=== PATIENT | female | born 1955 | race Caucasian/White ===

== ENCOUNTER → 2016-09-24 | Outpatient (CLI) | payer BC ==
[~2016-09-24] MED LIST: HYDR12.55 PO; LISI5TAB PO; POLY335040 PO
--- NOTE | 2016-09-24 11:26 | DIAGNOSTIC IMAGING REPORT ---
LEFT FOOT MIN 3 VIEWS CLINICAL HISTORY: LEFT FOOT PAIN COMPARISON: None. DISCUSSION: There is a mild hallux valgus deformity. No acute fractures are visualized. There is a tiny plantar calcaneal spur. There are no erosive or destructive changes. IMPRESSION: No acute fractures. No evidence of erosive disease. Electronically signed by: Chris Reed M.D. 09/24/2016 11:25 AM Dictated Date/Time: 09/24/2016 11:24 AM
== END | disposition home or self-care (01) ==
LOC: C.RDSM 09:30
PROVIDERS: ATTEND Family Medicine
DX: M17.11 Unilateral primary osteoarthritis, right knee (principal); M79.672 Pain in left foot

== ENCOUNTER → 2016-11-26 | Outpatient (CLI) | payer BC ==
[2016-11-26 18:04] LABS: BLOOD UREA NITROGEN 21 mg/dl (7-18); BUN/CREATININE RATIO 21.6 (10-20); CALCIUM 9.2 mg/dl (8.5-10.1); CARBON DIOXIDE 30 mmol/L (21-32); CHLORIDE 104 mmol/L (98-107); CREATININE 0.98 mg/dl (0.60-1.20); GLUCOSE 93 mg/dl (70-99); POTASSIUM 3.9 mmol/L (3.5-5.1); SODIUM 142 mmol/L (136-145)
[2016-11-27 06:16] LABS: ESTIMATED AVERAGE GLUCOSE 137 mg/dl; HA1C FLAG Normal (Normal)
== END | disposition home or self-care (01) ==
LOC: C.LABPVFM 11:55
PROVIDERS: ATTEND Family Medicine
DX: I10 Essential (primary) hypertension (principal); R73.01 Impaired fasting glucose; Z11.59 Encounter for screening for other viral diseases

== ENCOUNTER → 2017-04-08 | Outpatient (CLI) | payer BC ==
--- NOTE | 2017-04-08 09:39 | DIAGNOSTIC IMAGING REPORT ---
RIGHT KNEE INCLUDING BILATERAL STANDING AP VIEWS (4 VIEWS) CLINICAL HISTORY: Right knee pain COMPARISON: 04/14/2016 DISCUSSION: There are moderately advanced osteoarthritic changes within the right knee with marked medial joint compartment narrowing. There are dorsal patellar spurs. There are lateral joint compartment loose bodies. There is also moderate narrowing of the medial joint compartment of the left knee. IMPRESSION: Persistent moderately advanced osteoarthritic changes the knees. No acute fractures. Electronically signed by: Chris Reed M.D. 04/08/2017 9:38 AM Dictated Date/Time: 04/08/2017 9:36 AM
== END | disposition home or self-care (01) ==
LOC: C.RDSM 11:25
PROVIDERS: ATTEND Family Medicine
DX: M25.561 Pain in right knee (principal)

== ENCOUNTER → 2017-05-12 | Outpatient (CLI) | payer BC ==
[2017-05-12 12:54] LABS: URINE APPEARANCE TURBID (CLEAR); URINE BILIRUBIN NEG (NEG); URINE COLOR YELLOW; URINE NITRITE POS (NEG); URINE SPECIFIC GRAVITY 1.018 (1.000-1.030); UROBILINOGEN NEG (NEG)
[2017-05-12 13:00] LABS: MANUAL MICROSCOPIC REQUIRED? NO
[2017-05-12 13:02] LABS: REVIEW REQ? NO; SULFASALICYLIC ACID NEG (NEG)
[2017-05-12 13:03] LABS: ESTIMATED AVERAGE GLUCOSE 137 mg/dl; HA1C FLAG Normal (Normal)
[2017-05-12 13:05] LABS: BLOOD UREA NITROGEN 17 mg/dl (7-18); BUN/CREATININE RATIO 17.5 (10-20); CALCIUM 9.5 mg/dl (8.5-10.1); CARBON DIOXIDE 28 mmol/L (21-32); CHLORIDE 107 mmol/L (98-107); CREATININE 0.97 mg/dl (0.60-1.20); GLUCOSE 85 mg/dl (70-99); POTASSIUM 3.8 mmol/L (3.5-5.1); SODIUM 141 mmol/L (136-145)
== END | disposition home or self-care (01) ==
LOC: C.LABPVFM 10:45
PROVIDERS: ATTEND Family Medicine
DX: I10 Essential (primary) hypertension (principal); R73.01 Impaired fasting glucose; N39.0 Urinary tract infection, site not specified; R82.99 Other abnormal findings in urine

== ENCOUNTER → 2017-05-17 | Outpatient (CLI) | payer BC ==
--- NOTE | 2017-05-18 07:54 | MAMMOGRAPHY REPORT ---
BILATERAL DIGITAL SCREENING MAMMOGRAM TOMOSYNTHESIS WITH CAD: 05/17/2017 CLINICAL HISTORY: Routine screening. Patient has no complaints. TECHNIQUE: Breast tomosynthesis in addition to standard 2D mammography was performed. Current study was also evaluated with a Computer Aided Detection (CAD) system. COMPARISON: Comparison is made to exams dated: 05/15/2016 mammogram, 05/13/2015 mammogram, 05/11/2014 m ammogram, 04/27/2013 mammogram, 04/21/2012 mammogram, and 04/07/2011 mammogram - [facility] nter. BREAST COMPOSITION: The tissue of both breasts is almost entirely fatty. FINDINGS: There is stable nodularity in the upper outer quadrant of the left breast, and a few benig n coarse calcifications bilaterally. No suspicious mass, architectural distortion or cluster of micr ocalcifications is seen. IMPRESSION: ACR BI-RADS CATEGORY 1: NEGATIVE There is no mammographic evidence of malignancy. A 1 year screening mammogram is recommended. The pa tient will receive written notification of the results. Approximately 10% of breast cancers are not detected with mammography. A negative mammographic report should not delay biopsy if a clinically suggestive mass is present. Tanya Krishnan M.D. ay/:05/17/2017 16:48:09 Pigskin Trimmer: Halle MARRERO)(Brad[place]), [facility] letter sent: Normal 1/2 BI-RADS Code: ACR BI-RADS Category 1: Negative
== END | disposition home or self-care (01) ==
LOC: C.MAMM 14:20
PROVIDERS: ATTEND Family Medicine
DX: Z12.31 Encounter for screening mammogram for malignant neoplasm of breast (principal)

== ENCOUNTER → 2017-07-30 | Outpatient (CLI) | payer BC | END | disposition home or self-care (01) | LOC: C.PAPS 16:22 | PROVIDERS: ATTEND Obstetrics & Gynecology | DX: Z01.419 Encounter for gynecological examination (general) (routine) without abnormal findings (principal) ==

== ENCOUNTER → 2017-08-20 | Outpatient (CLI) | payer BC, OTHER ==
[~2017-08-20] MED LIST changes: +CHOL1000 PO; +GLC/500 PO; +PRLSR20 PO; +RANI150T3 PO
== END | disposition home or self-care (01) ==
LOC: C.LABPVFM 10:13
PROVIDERS: ATTEND Nurse Practitioner
DX: N39.0 Urinary tract infection, site not specified (principal)

== ENCOUNTER → 2017-10-15 | Outpatient (CLI) | payer OTHER ==
[~2017-10-15] MED LIST changes: -CHOL1000 PO; -GLC/500 PO; -PRLSR20 PO; -RANI150T3 PO
[2017-10-15 12:54] LABS: HEMOGLOBIN A1C 6.3 % (4.5-5.6)
[2017-10-15 12:56] LABS: ALBUMIN 3.7 gm/dl (3.4-5.0); ALT/SGPT 44 U/L (12-78); BLOOD UREA NITROGEN 18 mg/dl (7-18); CALCIUM 9.5 mg/dl (8.5-10.1); CARBON DIOXIDE 30 mmol/L (21-32); CHOLESTEROL 195 mg/dl (0-200); CREATININE 0.98 mg/dl (0.60-1.20); GLUCOSE 118 mg/dl (70-99); POTASSIUM 3.9 mmol/L (3.5-5.1); SODIUM 139 mmol/L (136-145)
[2017-10-15 12:59] LABS: ALKALINE PHOSPHATASE 86 U/L (45-117); AST/SGOT 23 U/L (15-37); LDL CHOLESTEROL CALCULATED 114 mg/dl; TOTAL PROTEIN 7.3 gm/dl (6.4-8.2)
== END | disposition home or self-care (01) ==
LOC: C.LABPVFM 08:17
PROVIDERS: ATTEND Nurse Practitioner
DX: I10 Essential (primary) hypertension (principal); R73.01 Impaired fasting glucose; R78.2 Finding of cocaine in blood

== ENCOUNTER → 2017-12-17 | Day surgery (SDC) | payer OTHER ==
[2017-11-11 08:12] VITALS: Ht 154.9 cm; Wt 102.3 kg
[~2017-12-17] VITALS: Ht 154.9 cm; Wt 102.3 kg
[~2017-12-17] MED LIST changes: +CHOL1000 PO; +GLC/500 PO; +LIDOCAINE HCL 2% 2 ML VIAL (20MG/ML) ONE; -POLY335040 PO; +PRLSR20 PO; +PROPOFOL IV EMULSION 10 MG/ML 20 ML VIAL IV ONE; +RANI150T3 PO
--- NOTE | 2017-12-17 14:44 | Endo History and Physical ---
History & Physical Date of Service: Dec 17, 2017. Chief Complaint: epigastric pain and nausea Referring Physician: Rona HUERTA History of Present Illness For EGD Past Surgical History Hx Cardiac Surgery: No Hx Internal Defibrillator: No Hx Pacemaker: No Hx Abdominal Surgery: Yes (VELASQUEZ, TUBAL LIGATION) Hx of Implantable Prosthesis: No Hx Post-Op Nausea and Vomiting: No Hx Cancer Surgery: No Hx Thoracic Surgery: No Hx Orthopedic: No Hx Urinary Tract Surgery: No Family History None Social History Smoking Status: Never Smoker Hx Substance Use: No Hx Alcohol Use: No Allergies Coded Allergies: No Known Allergies (Verified , 12/17/17) Current Medications Reported Home Medications Medications Dose Route/Sig Max Daily Dose Days Date Category Vitamin D3 (Cholecalciferol) 1,000 Unit Tab 1 Tab PO QAM 11/11/17 Reported Zantac (Ranitidine HCl) 150 Mg Tab 150 Mg PO QPM 11/11/17 Reported Prilosec (Omeprazole) 20 Mg Capcr 20 Mg PO QAM 11/11/17 Reported Glucophage (Metformin Hcl) 500 Mg Tab 500 Mg PO BID 11/11/17 Reported Prinivil (Lisinopril) 5 Mg Tab 5 Mg PO QAM 03/13/13 Reported Hydrochlorothiazide 12.5 Mg Tab 12.5 Mg PO QAM 03/13/13 Reported Vital Signs Weight (Kilograms): 102.27 Height (Feet): 5 Height (Inches): 1 Date Time Temp Pulse Resp B/P (MAP) Pulse Ox O2 Delivery O2 Flow Rate FiO2 12/17/17 14:19 36.8 86 18 142/91 (108) 98 Room Air Physical Exam General Appearance: + obese Respiratory/Chest: Respiratory effort: no dyspnea Cardiovascular: Heart Auscultation: RRR Abdomen: Inspection & Palpation: soft Assessment and Plan Epig pain for EGD
--- NOTE | 2017-12-17 14:59 | Discharge Instructions ---
Endoscopy Patient Instructions Date / Procedure(s) Performed Dec 17, 2017. EGD Allergy Information Coded Allergies: No Known Allergies (Verified , 12/17/17) Discharge Date / Findings Dec 17, 2017. Schatzki ring, hiatal hernia Medication Instructions Stopped Medication(s): last dose Metformin Wednesday Restart Stopped Medication(s): resume meds Reported Home Medications Medications Dose Route/Sig Max Daily Dose Days Date Category Vitamin D3 (Cholecalciferol) 1,000 Unit Tab 1 Tab PO QAM 11/11/17 Reported Zantac (Ranitidine HCl) 150 Mg Tab 150 Mg PO QPM 11/11/17 Reported Prilosec (Omeprazole) 20 Mg Capcr 20 Mg PO QAM 11/11/17 Reported Glucophage (Metformin Hcl) 500 Mg Tab 500 Mg PO BID 11/11/17 Reported Prinivil (Lisinopril) 5 Mg Tab 5 Mg PO QAM 03/13/13 Reported Hydrochlorothiazide 12.5 Mg Tab 12.5 Mg PO QAM 03/13/13 Reported Provider Instructions Activity Restrictions - No exercising or heavy lifting for 24 hours. - Do not drink alcohol the day of the procedure. - Do not drive a car or operate machinery until the day after the procedure. - Do not make any important decisions or sign important papers in 24 hours after the procedure. Following Day: - Return to full activity which may include returning to work/school. Diet Start your diet with liquids and light foods (jello, soup, juice, toast). Then eat your usual diet if not nauseated. Treatment For Common After Affects For mild abdominal pain, bloating, or excessive gas: - Rest - Eat lightly - Lie on right side Follow-Up Information Follow-up with Rona HUERTA as scheduled Anesthesia Information What You Should Know You have had a procedure that required some medicine to reduce anxiety and discomfort. This treatment is called moderate sedation. After receiving the treatment, you may be sleepy, but you will be able to breathe on your own. The effects of the treatment may last for several hours. Follow these instructions along with Activity/Diet recommendations noted above: * Do NOT do anything where dizziness or clumsiness would be dangerous. * Rest quietly at home today, then you can be up and about tomorrow. * Have a responsible person stay with you the rest of today. * You may have had an I.V. today. If so, you may take the dressing off later today. Recommendations Call your doctor if: * Trouble breathing * Continuous vomiting for more than 24 hours * Temperature above 101 degrees * Severe abdominal pain or bloating * Pain not relieved by pain medicine ordered * There is increased drainage or redness from any incision * A large amount of rectal bleeding greater than 2-3 tablespoons. (If you had a polyp/s removed or have hemorrhoids, a small amount of blood - from the rectum is to be expected.) * You have any unanswered questions or concerns. IN THE EVENT OF A SERIOUS EMERGENCY, GO TO THE NEAREST EMERGENCY ROOM Your discharge instructions were prepared by provider Aaron Henriquez. Patient Instructions Signature Page Amy Coy Patient (or Guardian) Signature/Date: I have read and understand the instructions given to me by my caregivers. Caregiver/RN/Doctor Signature/Date: The above-named patient and/or guardian has received patient instructions on this date. + Original Patient Signature Page (only) stays with chart. Please make copy for patient.
--- NOTE | 2017-12-17 15:05 | GI REPORT ---
Patient Name: Amy Coy Procedure Date: 12/17/2017 2:46 PM Date of : 1955 Admit Type: Outpatient Age: 62 Gender: Female Attending MD: Aaron Henriquez MD Procedure: Upper GI endoscopy Providers: Aaron Henriquez MD Referring MD: Rona Frausto Indications: Epigastric abdominal pain, Dysphagia Medicines: Propofol total dose 150 mg IV, Lidocaine 80 mg IV Complications: No immediate complications. Estimated Blood Loss: Estimated blood loss: none. Procedure: Pre-Anesthesia Assessment: - Prior to the procedure, a History and Physical was performed, and patient medications, allergies and sensitivities were reviewed. The patient's tolerance of previous anesthesia was reviewed. - The risks and benefits of the procedure and the sedation options and risks were discussed with the patient. All questions were answered and informed consent was obtained. After obtaining informed consent, the endoscope was passed under direct vision. Throughout the procedure, the patient's blood pressure, pulse, and oxygen saturations were monitored continuously. The On-site loaner was introduced through the mouth, and advanced to the second part of duodenum. The upper GI endoscopy was accomplished without difficulty. The patient tolerated the procedure well. Findings: The Z-line was regular and was found 34 cm from the incisors. A mild Schatzki ring (acquired) was found at the gastroesophageal junction. A guidewire was placed and the scope was withdrawn. Dilation was performed with a Savary dilator with no resistance at 54 Fr. A small hiatal hernia was present. The entire examined stomach was normal. The examined duodenum was normal. Impression: - Z-line regular, 34 cm from the incisors. - Mild Schatzki ring. Dilated. - Small hiatal hernia. - Normal stomach. - Normal examined duodenum. - No specimens collected. Recommendation: - Discharge patient to home (ambulatory). - Continue present medications. - Return to primary care physician PRN. Aaron Henriquez M.D. Aaron Henriquez MD 12/17/2017 3:04:47 PM This report has been signed electronically. Note Initiated On: 12/17/2017 2:46 PM Number of Addenda: 0 I attest to the content of the Intraoperative Record and orders documented therein, exceptions below {[id number]}
[2017-12-17 15:25] VITALS: BP 132/82; PULSE 82; O2SAT 98
--- NOTE | 2017-12-17 16:09 | Anesthesiology Progress Note ---
Anesthesia Post Op Note Date & Time Dec 17, 2017 at 16:09 Vital Signs Pain Intensity: 0 Vital Signs Past 12 Hours Date Time Temp Pulse Resp B/P (MAP) Pulse Ox O2 Delivery O2 Flow Rate FiO2 12/17/17 15:25 82 18 132/82 (99) 98 Room Air 12/17/17 15:15 87 18 130/77 (94) 98 Room Air 12/17/17 15:05 96 18 126/86 (99) 92 Room Air 12/17/17 14:19 36.8 86 18 142/91 (108) 98 Room Air Notes Mental Status: alert / awake / arousable, participated in evaluation Pt Amnestic to Procedure: Yes Nausea / Vomiting: adequately controlled Pain: adequately controlled Airway Patency, RR, SpO2: stable & adequate BP & HR: stable & adequate Hydration State: stable & adequate Anesthetic Complications: no major complications apparent
== END | disposition home or self-care (01) ==
LOC: C.GI 13:54
PROVIDERS: ATTEND Internal Medicine Gastroenterology
DX: R10.13 Epigastric pain (principal); R13.10 Dysphagia, unspecified; K22.2 Esophageal obstruction; K44.9 Diaphragmatic hernia without obstruction or gangrene; I10 Essential (primary) hypertension; E11.9 Type 2 diabetes mellitus without complications; E66.01 Morbid (severe) obesity due to excess calories; Z68.41 Body mass index [BMI] 40.0-44.9, adult; Z98.51 Tubal ligation status; Z90.49 Acquired absence of other specified parts of digestive tract; Z79.899 Other long term (current) drug therapy

== ENCOUNTER 2019-10-24 04:51 | Inpatient (IN) ==
--- NOTE | 2019-09-27 13:47 | PAT Medication Instructions ---
Medication Instructions Date of Service September 27, 2019 Home Medications cholecalciferol (vitamin D3) 25 mcg (1,000 unit) tablet 2,000 units PO QAM polyethylene glycol 3350 17 gram/dose oral powder 17 g PO 2XWK PRN hydrochlorothiazide 12.5 mg PO QAM lisinopril 10 mg PO QAM metformin 500 mg PO BID naproxen sodium [Aleve] 220 mg PO Q8H PRN ASK your surgeon for instructions naproxen sodium [Aleve] 220 mg PO Q8H PRN DO NOT take the morning of surgery cholecalciferol (vitamin D3) 25 mcg (1,000 unit) tablet 2,000 units PO QAM polyethylene glycol 3350 17 gram/dose oral powder 17 g PO 2XWK PRN hydrochlorothiazide 12.5 mg PO QAM lisinopril 10 mg PO QAM metformin 500 mg PO BID Take evening before surgery metformin 500 mg PO BID *NOTHING TO EAT OR DRINK AFTER MIDNIGHT* Other Notes If you have any questions please call us at [phone] or [phone] or [phone] or [phone]
--- NOTE | 2019-09-28 09:34 | Anesthesiology Consultation ---
Date of Service September 28, 2019 Assessment & Plan (1) Encounter for pre-operative examination: Chart Review Chart Review: Acceptable Risk for Surgery (pending surgeon-ordered pcp clearance) and Patient seen in Pre Admission Testing Teaching & Discussion Instructed NPO after midnight before surgery, except medications with 15 cc of water. Medication instructions provided according to the PAT guidelines. History Surgery Operation Date: 10/24/19 07:00 Proposed Procedures p Right Total Knee Arthroplasty - David Lynne Johns MD Height/Weight Height: 5 ft 1 in Weight: 106.9 kg Allergies Allergy/AdvReac Type Severity Reaction Status Date / Time ibuprofen AdvReac Unknown Gastrointestinal Verified 09/21/19 10:53 Upset Medications Home Medications Medication Instructions Recorded Confirmed Last Taken cholecalciferol (vitamin D3) 25 2,000 units PO QAM tab 06/13/19 09/21/19 Unknown mcg (1,000 unit) tablet polyethylene glycol 3350 17 17 g PO 2XWK PRN 08/03/19 09/21/19 Unknown gram/dose oral powder hydrochlorothiazide 12.5 mg PO QAM 09/21/19 09/21/19 Unknown metformin 500 mg PO BID 09/21/19 09/21/19 Unknown naproxen sodium [Aleve] 220 mg PO Q8H PRN 09/21/19 09/21/19 Unknown lisinopril 10 mg tablet See Rx Instructions .ROUTE 09/29/19 Unknown .COMPLEX #30 tablet Past Medical History Medical History (Updated 09/28/19 @ 09:51 by Cj Le) Diabetes mellitus, type 2 Fatty liver disease, nonalcoholic GERD (gastroesophageal reflux disease) Hiatal hernia Hypertension Kidney stones Obesity, morbid, BMI 40.0-49.9 Palpitations Reported to PCP 05/2019; EKG showed ST with frequent PVCs, but patient was taking Sudafed at the time, and symptoms resolved when d/c'd. SOB (shortness of breath) on exertion Per PCP 06/08 "She did have a stress test in April of 2018 was able to walk for 2 minutes on the treadmill but then had to stop due to dyspnea on exertion and the rn quality felt that was due to poor conditioning because there is no EKG changes." Urinary tract infection x 2 07/2019. Resolved. Exercise / Class Metabolic Activity III < 4 Walking/Shop/Light housework (Denies CP or SOB with light houseowkr/ambulation on one level) Past Surgical History Surgical History History of arthroscopic knee surgery History of carpal tunnel release of both wrists History of cholecystectomy History of colonoscopy History of esophagogastroduodenoscopy (EGD) History of salpingo-oophorectomy History of tooth extraction all upper teeth Past Anesthesia History No Hx of Anesthesia Complications and No Family Hx of Anesthesia Complications History of PONV No Hx of PONV and No Hx of Motion Sickness Social History Smoking Status: Never smoker Do You Dip or Chew Tobacco: No Hx Alcohol Use: No Hx Substance Use: No substance use type: does not use Review of Systems Pt denies any recent chest pain, shortness of breath, palpitations, cough, fever or URI. Physical Exam Vital Signs BP: 120/80 P: 95bpm SPO2: 93% RA T: 98.1 F R: 16 Constitutional + obese ENMT Mouth: + dentures (upper); no chipped teeth and no loose teeth Thyromental Distance: > or= 3.5 Finger Breadths (3.5) Mallampati Class: II Neck normal visual inspection; neck extension not limited Respiratory normal respiratory effort Auscultation: lungs clear to auscultation bilaterally Cardiovascular Rate/Rhythm: regular rhythm and + tachycardic (borderline) Heart Sounds: no murmur Extremities: no edema Testing Laboratory Results 09/28/19 09:40 09/28/19 09:40 PT 10.3 Seconds (9.0-12.0) 09/28/19 09:40 INR 1.0 (0.9-1.1) 09/28/19 09:40 APTT 22.8 Seconds (21.0-31.0) 09/28/19 09:40 Hemoglobin A1c 6.3 % (4.5-5.6) H 09/28/19 09:40 Blood Type B Negative 09/28/19 09:40 Antibody Screen NEGATIVE 09/28/19 09:40 Electrocardiogram Date: 05/25/19 Findings: + ST @ (101 with frequent PVCs) RBBB. Chest X-Ray Date: 05/25/19 Findings: + NAD
[2019-09-28 10:31] LABS: Basophils # (auto) 0.02 K/uL (0-0.2); Basophils % (auto) 0.2 %; Eosinophils # (auto) 0.08 K/uL (0-0.5); Eosinophils % (auto) 0.8 %; Hematocrit (blood only) 42.3 % (37-47); Hemoglobin 14.4 g/dL (12.0-16.0); Immature Granulocytes # (auto) 0.02 K/uL (0.00-0.02); Immature Granulocytes % (auto) 0.2 %; Lymphocytes % (auto) 24.8 %; Mean Corpuscular Hemoglobin 29.5 pg (25-34); Mean Corpuscular Volume 86.7 fL (80-100); Mean Platelet Volume 11.5 fL (7.4-10.4); Monocytes # (auto) 0.73 K/uL (0.11-0.59); Monocytes % (auto) 7.5 %; Neutrophils # (auto) 6.42 K/uL (1.4-6.5); Neutrophils % (auto) 66.5 %; Platelet Count 277 K/uL (130-400); RDW Coefficient of Variation 13.4 % (11.5-14.5); RDW Standard Deviation 42.6 fL (36.4-46.3); Red Blood Count 4.88 M/uL (4.2-5.4); White Blood Count 9.67 K/uL (4.8-10.8)
[2019-09-28 10:36] LABS: Alanine Aminotransferase 44 U/L (12-78); Albumin Level 3.6 gm/dl (3.4-5.0); Aspartate Aminotransferase 28 U/L (15-37); BUN Creatinine Ratio 17.5 (10-20); Bilirubin Direct < 0.1 mg/dl (0-0.2); Blood Urea Nitrogen 19 mg/dl (7-18); Carbon Dioxide 26 mmol/L (21-32); Chloride 104 mmol/L (98-107); Creatinine Clr Calc Pharmacy 59.9 ml/min; Est GFR (African American) 63.5; Est GFR (Non-African American) 54.8; Glucose 176 mg/dl (70-99); Potassium 3.7 mmol/L (3.5-5.1); Sodium 138 mmol/L (136-145)
[2019-09-28 10:41] LABS: Alkaline Phosphatase 77 U/L (45-117); Bilirubin,Total 0.2 mg/dl (0.2-1); Partial Thromboplastin Ratio 0.8; Partial Thromboplastin Time 22.8 Seconds (21.0-31.0); Prothrombin Time 10.3 Seconds (9.0-12.0); Total Protein 7.4 gm/dl (6.4-8.2)
[2019-09-28 11:01] LABS: Estimated Average Glucose 134 mg/dl; Hemoglobin A1C 6.3 % (4.5-5.6)
[2019-10-24] MEDS ORDERED: CeleBREX 200 MG CAP PO SCH (06:00)
[2019-10-24] MEDS ORDERED: TRANEXAMIC ACID 1,000 MG **IV Pre-op IV SCH (06:00)
[2019-10-24] MEDS ORDERED: CEFAZOLIN 2000MG 2,000 MG/15 ML SYR IV SCH (06:00)
[2019-10-24] MEDS ORDERED: TRANEXAMIC ACID 1,000 MG **IV Intra-op IV SCH (06:00)
[2019-10-24] MEDS ORDERED: LR 500ML BOLUS, THEN 15ML/HR IV SCH (06:00)
[2019-10-24] MEDS ORDERED: ROPIVACAINE 0.5% HCL/PF 150 MG, BUPIVACAINE 0.5% MPF 30 ML, EPINEPHrine 0.15 MG, Ketoro... INFIL SCH (06:00)
[2019-10-24] MEDS ORDERED: LR 60ML/HR IV SCH (06:00)
[2019-10-24] MEDS ORDERED: EPINEPHrine INJ 1 MG/ML AMP ONE (06:29)
[2019-10-24] MEDS ORDERED: ROPIVACAINE 0.5% 5 MG/ML 30 ML VIAL ONE (06:29)
[2019-10-24] MEDS ORDERED: ORTHO JOINT ANESTHETIC ONE (06:36)
--- NOTE | 2019-10-24 06:37 | History & Physical Bridge Note ---
Date of Service October 24, 2019 History & Physical Bridge Note I have examined the patient, reviewed the History & Physical and in the interval since the performance of the History & Physical I have noted the following changes of clinical significance: no changes noted
[2019-10-24] MEDS ORDERED: MIDAZOLAM HCL 1 MG/ML 2ML VIAL ONE ×3 (06:47→08:18)
[2019-10-24] MEDS ORDERED: ONDANSETRON INJ 2 MG/ML 2 ML VIAL ONE (07:26)
[2019-10-24] MEDS ORDERED: PHENYLEPHRINE HCL 10 MG/ML VIAL ONE (07:34)
[2019-10-24] MEDS ORDERED: PHENYLEPHRINE 100MCG/ML 5ML SYR ONE (07:34)
[2019-10-24] MEDS ORDERED: ePHEDrine sulfate 50 MG/ML SYR ONE (07:34)
--- NOTE | 2019-10-24 07:37 | Communication Note ---
Date of Service: October 24, 2019 Pt is an ASA 4
[2019-10-24] MEDS ORDERED: fentaNYL citrate 100 MCG/2 ML VIAL ONE ×2 (07:56→09:25)
[2019-10-24] MEDS ORDERED: PROPOFOL IV EMULSION 10 MG/ML 20 ML VIAL IV ONE ×2 (08:32)
[2019-10-24] MEDS ORDERED: ATROPINE SULFATE 0.1 MG/ML 10ML SYR IV PRN (08:52)
[2019-10-24] MEDS ORDERED: ePHEDrine sulfate 50 MG/ML AMP IV PRN (08:52)
--- NOTE | 2019-10-24 09:51 | Post Operative Brief Note ---
Immediate Post Op Note v1 Date of Surgery October 24, 2019 Pre & Post Diagnosis Operation Date: 10/24/19 07:00 Pre-Op Diagnosis: Right Knee Osteoarthritis Post-Op Diagnosis: Right Knee Osteoarthritis I identified the patient and participated in the time-out.: Yes Procedure Operation Date: 10/24/19 07:00 Actual Procedures p Right Total Knee Arthroplasty(Right) - David Johns MD Surgeon David Johns MD Birthing Nurse MD [employer] PA-C Estimated Blood Loss 110 Findings Consistent with Post-Op Diagnosis Fluids 2000 cc Specimens Right knee contents Anesthesia Type MAC Spinal Regional Complications none
--- NOTE | 2019-10-24 09:51 | Operative Report ---
Post Operative Report Pre & Post Diagnosis Operation Date: 10/24/19 07:00 Pre-Op Diagnosis: Right Knee Osteoarthritis Post-Op Diagnosis: Right Knee Osteoarthritis I identified the patient and participated in the time-out.: Yes Procedure Operation Date: 10/24/19 07:00 Actual Procedures p Right Total Knee Arthroplasty(Right) - David Johns MD Surgeon David Johns MD Blast Furnace Supervisor MD [employer]yl[employer] PA-C Estimated Blood Loss 110 Findings See Below Examined Under Anesthesia: ROM -- There was 5 degrees to 110 degrees of flexion Ligamentous examination -- revealed stable [place]peranza, posterior drawer, varus and valgus stress at 0 and 30 degrees. [place] Type IV changes of all 3 compartments, osteophytes, multiple loose bodies, and significant synovitis. Fluids 2000 cc Specimens Right knee contents Anesthesia Type MAC Spinal Regional Complications none Indications This is a 64-year-old female who has clinical and radiographic findings consistent with osteoarthritis of the a right knee. I recommended that a right total knee replacement be performed. The patient understands the risks of surgery, which include but not limited to: bleeding, infection, re-operation, damage to nerves and arteries, continued knee pain, knee stiffness, DVT, and . The patient understands all of these instructions and explanations, all of his questions have been satisfactorily addressed and the patient has elected to proceed. Informed consent was signed. Description of Procedure IMPLANTS: 1. Femur: Triathlon #3 right PS, with pegs. 2. Tibia: Triathlon #3 [place]. 3. Insert: Triathlon #3 x 13 mm PS X3 poly. 4. Patella: Triathlon S29 x 8 mm X3 poly. 5. Simplex cement. PROCEDURE: The patient was taken to the Operating Room and placed in the supine position after spinal and adductor canal nerve block was administered. My initials and a multidisciplinary time-out were used to identify the right leg as the correct operative limb. A tourniquet was placed high in the thigh. Prior to the incision, 2 grams of intravenous Ancef were given. The right leg was then prepped and draped in a standard sterile fashion. An Esmarch was used to exsanguinate the leg and the tourniquet was inflated to 250 mmHg. The planned mid-line 20 cm incision was created exposing the extensor mechanism. The medial parapatellar arthrotomy was made and the patella was everted. The patella was addressed first. It was prepared by reaming from 20 mm down to 11 mm. An S29 button was found to fit best. The peg holes were made in the standard fashion. The femur was addressed next and the guide mookie was placed intramedullary. The initial cutting block was placed with 5 degrees of valgus and removing 10 mm for the anterior cut. The cut was made and the 4-in-1 cutting block for a size 3 femur was placed. These cuts and the cuts to place the box were made in the standard fashion. Our attention was then drawn to the tibia cut with the external cutting guide, taking 4 mm from the medial low side. There was sufficient extension and flexion gap to fit a 13 mm spacer. A #3 Tibial baseplate fit well. A trial with a 13 mm spacer showed excellent stability in both flexion and extension, with good ligament balance and thumbs free tracking of the patella. Range of motion of 0-120 degrees. The tibial baseplate was pinned and the final pre paration for the keel and stem was made. All components were removed. The tourniquet was deflated. Hemostasis was obtained. 90 ml of total knee cocktail were injected into the soft tissues and periosteum. A bone plug was placed in the femur and covered with bone wax. After a 15 minute break, the limb was exsanguinated again and the tourniquet was re-inflated. All surfaces were copiously irrigated prior to placement of the components. The femoral component was placed first followed by the Tibial baseplate, and a 13 mm trial placed. The patellar button was placed next using the same batch of Simplex cement. Again with the 13 mm trial poly was placed and the range of motion and stability were unchanged. Once the cement had cured, the 13 mm X3 poly was placed. The stability and tracking of the patella were excellent and unchanged. The extensor mechanism was closed with 1-0 and 0 Vicryl with the knee bent approximately 60 degrees in a standard fashion. The peritenon and deep fascia was closed with 2-0 Vicryl. The subcutaneous layer was closed with 3-0 Vicryl. The skin was closed with Zipline. The limb was cleaned and dried. 4x4 dressing was placed over top followed by ABDs, sterile Webril, and a foot to thigh Cade bandage. The patient was then transferred to the Recovery Room in stable condition. The sponge and needle counts were correct. POST-OP INSTRUCTIONS: The patient will be WBAT. The patient will be admitted to the hospital. The patient will use the knee immobilizer when ambulating and standing until good quad control is achieved. Labs will be obtained during the stay. DVT prophylaxis will included Lovenox for 3 weeks then switching to aspirin for 3 more weeks, TEDs, and mechanical foot pumps. The dressing will be changed prior to their discharge or postop day #2 and covered with a Silverlon dressing, whichever comes first. I attest to the content of the Intraoperative Record and any orders documented therein. Any exceptions are noted below.
[2019-10-24] MEDS ORDERED: HYDROmorphone INJ 1 MG/ML SYRINGE IV PRN (10:30)
[2019-10-24] MEDS ORDERED: NALOXONE HCL 0.4 MG/1 ML VIAL/CARP IV PRN (10:30)
[2019-10-24] MEDS ORDERED: bisacodyL 10 MG SUPP PR PRN (10:30)
[2019-10-24] MEDS ORDERED: ONDANSETRON INJ 2 MG/ML 2 ML VIAL IV PRN (10:30)
[2019-10-24] MEDS ORDERED: DiphenhydrAMINE HCL 50 MG/ML VIAL IV PRN (10:30)
[2019-10-24] MEDS ORDERED: MAGNESIUM HYDROXIDE SUSP 30 ML UDC PO PRN (10:30)
[2019-10-24] MEDS ORDERED: METOCLOPRAMIDE HCL INJ 5 MG/ML 2 ML VIAL IV PRN (10:30)
[2019-10-24] MEDS: HYDROmorphone INJ 1 MG/ML SYRINGE IV PRN ×2 (10:47→11:01)
--- NOTE | 2019-10-24 10:58 | XRay Report ---
RIGHT KNEE 2 VIEWS History: Right total knee arthroplasty. Degenerative arthritis. Postop. FINDINGS: The patient is status post a right total knee arthroplasty. The hardware is intact. No frac ture or dislocation. IMPRESSION: Right total knee arthroplasty. No evidence for hardware complication. ACT 112: Negative or not required by law. Electronically signed by: Fidel Marcus M.D. 10/24/2019 10:57 AM
[2019-10-24] MEDS ORDERED: PHARMACY GLYCEMIC MGMT CONSULT PRN (11:09)
[2019-10-24] MEDS ORDERED: GLUCAGON FOR INJ 1 MG VIAL IM PRN (11:15)
[2019-10-24] MEDS ORDERED: DEXTROSE 50% 50 ML SYRINGE IV PRN (11:15)
[2019-10-24] MEDS ORDERED: CARBOHYDRATES FOR HYPOGLYCEMIA PO PRN (11:15)
[2019-10-24] MEDS ORDERED: GLUCOSE 10 TABS/TUBE PO PRN (11:15)
[2019-10-24] MEDS ORDERED: GLUCOSE 40% GEL 15 GM TUBE PO PRN (11:15)
--- NOTE | 2019-10-24 11:33 | Pharmacy Report ---
Glycemic Control Consultation - Date of Service October 24, 2019 - Scope Scope: Glycemic Pharmacist consulted for glycemic control and to write orders per [facility] inpatient glycemic control protocol. - Objective Weight: 105.959 kg Accuchecks BSG (last 24hrs): 10/24/19 10/24/19 05:19 10:21 POC Glucose 149 H 148 H HbA1c: Hemoglobin A1c 6.3 % (4.5-5.6) H 09/28/19 09:40 - Recent Pertinent Medications Outpatient Anti-diabetic Regimen: * metformin 500 mg PO BID Risk Factors for Insulin Resistance: * Steroids: dexamethasone 4 mg topically * Recent Surgery: POD 0 for Right knee surgery * Diet: T2DM - Assessment & Plan Assessment & Plan: ASSESSMENT: * Ms Coy is a 64 y/o F with a PMH of well controlled T2DM on one oral medication who presents for R knee surgery. Patient received topical dexamethasone in orthopedic mixture. * Fasting BSG was 149 mg/dL. Based upon this will give Lantus 15 units SQ x 1. Plan additional Lantus based upon AM BSG tomorrow. * Novolog started at weight-based stress of 2 AdjBW. * Hold metformin. Consider restarting tomorrow based upon kidney function and oral intake. PLAN FOR INPATIENT GLYCEMIC CONTROL: * Holding outpatient oral diabetes medications * Basal insulin * Lantus 15 units SQ x 1 * Bolus insulin * NovoLog per scale ACHS or Q6hrs while NPO * Goal Range: Low 110 mg/dL - High 140 mg/dL * Correction Factor: 25 mg/dL/unit * Nutritional / Prandial insulin per carb ratio of 1 unit per 8 grams CHO consumed * Please note that the plan above was derived based on current level of insulin resistance and hospital stress. These recommendations are appropriate for inpatient admission only. Plan of care upon discharge will need to be reassessed to avoid potential outpatient hypo/hyperglycemia. Thank you.
--- NOTE | 2019-10-24 11:37 | Anesthesiology Progress Note ---
Date of Service October 24, 2019 Anesthesia Post Procedure Vital Signs Vital Signs: Temp Pulse Pulse Resp BP Pulse Ox 10/24/19 11:20 36.5 C 84 14 99/59 L 94 10/24/19 11:10 81 14 111/59 L 92 10/24/19 11:00 81 22 97/55 L 95 10/24/19 10:50 86 14 79/59 L 95 10/24/19 10:40 82 18 108/56 L 96 10/24/19 10:30 78 16 108/75 100 10/24/19 10:20 88 26 H 108/61 100 10/24/19 10:18 36.6 C 84 12 103/62 99 10/24/19 05:32 36.9 C 99 H 20 169/92 H 94 Pain Intensity Right Knee: Pain Intensity: 4 Transfer of Care Handoff Completed per policy Notes Mental Status: alert / awake / arousable Patient Amnestic to Procedure: Yes Nausea / Vomiting: adequately controlled Pain: adequately controlled Airway Patency, RR, SpO2: stable & adequate BP & HR: stable & adequate Hydration State: stable & adequate Neuraxial Anesthesia: was administered and sensory block is resolving Anesthetic Complications: no major complications apparent
[2019-10-24] MEDS ORDERED: LANTUS PER UNIT CHARGE SQ ONE (12:00)
[2019-10-24] MEDS: SODIUM CHLORIDE 0.9% 1000ML 1,000 ML IV SCH ×2 (13:20→21:26)
[2019-10-24] MEDS: INSULIN ASPART 100 UNITS/ML 3 ML PEN SC SCH ×3 (13:23→21:21)
--- NOTE | 2019-10-24 13:31 | Operative Report ---
Post Operative Report Pre & Post Diagnosis Operation Date: 10/24/19 07:00 Pre-Op Diagnosis: Right Knee Osteoarthritis Post-Op Diagnosis: Right Knee Osteoarthritis I identified the patient and participated in the time-out.: Yes Procedure Operation Date: 10/24/19 07:00 Actual Procedures p Right Total Knee Arthroplasty(Right) - David Johns MD Surgeon David Johns MD Paperhanger Pipe MD [employer] PA-C Estimated Blood Loss 110 Findings Consistent with Post-Op Diagnosis Specimens Bone and soft tissues from R knee Complications none Disposition Accompanied Patient To Recovery: Yes Disposition: Recovery Room Description of Procedure Supine, standard prep and drape, Tourniquet, Time out Right Total Knee Arthroplasty Please see Dr Johns's procedure notes for specific details I was present throughout the case, assisted for wound closure and transferred the patient to PACU in stable condition I attest to the content of the Intraoperative Record and any orders documented therein. Any exceptions are noted below.
[2019-10-24] MEDS: ACETAMINOPHEN 500 MG TAB PO SCH ×2 (13:52→21:19)
[2019-10-24] MEDS: CEFAZOLIN 2000MG 2,000 MG/15 ML SYR IV SCH ×2 (13:52→21:19)
--- NOTE | 2019-10-24 14:42 | Orthopedic Progress Note ---
Date of Service October 24, 2019 Assessment & Plan (1) Osteoarthritis of right knee: S/P R total knee arthroplasty POD 0 1) Pain controlled. Continue Pain management. Continue ice. 2) Tolerating PO diabetic diet. Continue. Encourage PO fluids. 3) prophylaxis includes B TEDS and foot pumps. ASA 81mg BID. Upon D/C TEDS x 3weeks and ASA 81mg BID x 6weeks. 4) WBAT R LE with walker. R knee immobilizer x 48hrs or until good quad control while ambulating, then D/C. 5) Await Medical/Hospitalist consult for medical management, patient is diabetic. 6) Keep dressing intact. Evaluate daily. Reinforce with 4x4s if needed. Plan to change to Silverlon on POD 2 or day of D/C, whichever comes first. 6) PT/OT evaluate and treat. 7) [employer] for D/C plans. Patient prefers HHPT. I, Dr. Johns, saw and examined the patient and agree with above findings and plan of care. Present on Admission?: Yes Admission and Anticipated Discharge Date Admission Date: October 24, 2019 Subjective Patient in bed resting. is in room. States pain is controlled. Knee feels "stiff". Started doing exercise sheet. Just took a tylenol. Tolerated lunch. Tolerating PO fluids. Denies f/c/s, CP, SOB, N/V, lightheadedness or dizziness. Physical Exam Physical Exam: Supine in bed. Right knee dressings intact. Ice to right knee. B foot pumps in place. Left leg with dennise hose. Able to wiggle B toes and ankles. B calves soft and neg homans. 5/5 B EHL, TA, gastroc strength. B NV intact. Palpable DP and PT pulses. Sensation intact to feet. At rest right knee in full extension. Tolerated AAROM to about 30 degrees. Able to preform straight leg raise. Results & Data ([facility]) Vital Signs (Past 12 Hours) Vital Signs Temp Pulse Pulse Resp BP Pulse Ox 10/24/19 13:29 92 H 18 92/56 L 92 10/24/19 12:41 87 14 92/58 L 95 10/24/19 12:06 83 14 91/55 L 98 10/24/19 11:35 36.7 C 82 16 101/63 96 10/24/19 11:20 36.5 C 84 14 99/59 L 94 10/24/19 11:10 81 14 111/59 L 92 10/24/19 11:00 81 22 97/55 L 95 10/24/19 10:50 86 14 79/59 L 95 10/24/19 10:40 82 18 108/56 L 96 10/24/19 10:30 78 16 108/75 100 10/24/19 10:20 88 26 H 108/61 100 10/24/19 10:18 36.6 C 84 12 103/62 99 10/24/19 05:32 36.9 C 99 H 20 169/92 H 94 Diagnostic Findings AP & Lateral right knee show R TKA, cemented, in good position.
--- NOTE | 2019-10-24 17:17 | Consultation ---
Date of Consultation October 24, 2019 Assessment & Plan (1) Osteoarthritis of right knee: s/p TKA with Dr. Johns pain reasonably well controlled, ambulating in the room with assistance encourage ISB use, watch for bowel function check labs in the AM (2) Hypertension: will hold lisinopril and HCTZ as BP low normal check BMP in the morning resume meds when BP becomes elevated (3) GERD (gastroesophageal reflux disease): no active symptoms (4) Diabetes mellitus, type 2: hold Metformin while admitted use Novolog SS glycemic management consult placed by orthopedics History of Present Illness Requesting Physician: Dr. Johns Reason for Consultation: medical management Attending Physician: David Johns MD History of Present Illness 64 yo female with osteoarthritis of the right knee presents after having elective R TKA with Dr. Johns. She had failed conservative measures and her pain and loss of mobility warranted knee replacement. She had an uncomplicated surgery. Vitals stable post op, minimal blood loss. She has no complaints after surgery except for some right knee pain. No dyspnea, no chest pain, no nausea, abdominal pain. She is ambulating with therapy, going back and forth to the restroom. No issues urinating after surgery. She has a history of well controlled HTN and well controlled DM type II. Allergies Allergy/AdvReac Type Severity Reaction Status Date / Time ibuprofen AdvReac Unknown Gastrointestinal Verified 10/24/19 05:30 Upset Home Medications Home Medications Medication Instructions Recorded Confirmed Type cholecalciferol (vitamin D3) 25 2,000 units PO QAM tab 06/13/19 10/24/19 History mcg (1,000 unit) tablet polyethylene glycol 3350 17 17 g PO 2XWK PRN 08/03/19 10/24/19 History gram/dose oral powder hydrochlorothiazide 12.5 mg PO QAM 09/21/19 10/24/19 History metformin 500 mg PO BID 09/21/19 10/24/19 History naproxen sodium [Aleve] 220 mg PO Q8H PRN 09/21/19 10/24/19 History lisinopril 10 mg tablet See Rx Instructions .ROUTE 09/29/19 10/24/19 Rx .COMPLEX #30 tablet Patient History Social History Preferred Language: Armenian Communication Ability: Effective Filler Picker Required: No Beliefs That Will Affect Care: None marital status: Current Living Situation: Spouse current occupational status: retired Other Information That Helps Us Care for You: No Feels Safe at Home: Yes Safety Concerns: Feels Safe At This Time Smoking Status: Never smoker Do You Dip or Chew Tobacco: No ; Second Hand Exposure: Yes (father smoked) ; Hx Alcohol Use: No Hx Substance Use: No caffeine: Yes Dental Care, Regularly: Yes Physical Activity Frequency: 1-2 Times per Week Physical Activity Frequency Comment: Moderate House cleaning/some walking Seatbelt Use: always Sunscreen Use: Yes Review of Systems Review of Systems: All systems reviewed & are unremarkable except as noted in HPI & below Musculoskeletal: + joint pain (right knee) Physical Exam Constitutional: WD/WN, vitals as above + overweight Eyes: PERRL, conjunctivae normal, anicteric sclerae ENMT: external ear and nose normal, oropharynx normal Neck: trachea midline, no thyromegaly Respiratory: normal respiratory effort, lungs clear to auscultation Cardiovascular: RRR, no murmur, no edema Gastrointestinal (Abdomen): normal bowel sounds, soft, nontender, no hepatosplenomegaly Musculoskeletal: no cyanosis or clubbing, extremities motor strength 5/5 Skin: no rashes, warm and dry Neurologic: patellar DTR's 2+ bilat, sensation intact and PERRL, EOMI, accommodation nl, no face palsy, no dysarthria Psychiatric: A+Ox3, euthymic affect Lymphatic: no cervical or axillary lymphadenopathy Results & Data ([facility]) Vital Signs (Past 12 Hours) Vital Signs Temp Pulse Pulse Resp BP Pulse Ox 10/24/19 14:29 36.7 C 85 18 99/64 L 94 10/24/19 13:29 92 H 18 92/56 L 92 10/24/19 12:41 87 14 92/58 L 95 10/24/19 12:06 83 14 91/55 L 98 10/24/19 11:35 36.7 C 82 16 101/63 96 10/24/19 11:20 36.5 C 84 14 99/59 L 94 10/24/19 11:10 81 14 111/59 L 92 10/24/19 11:00 81 22 97/55 L 95 10/24/19 10:50 86 14 79/59 L 95 10/24/19 10:40 82 18 108/56 L 96 10/24/19 10:30 78 16 108/75 100 10/24/19 10:20 88 26 H 108/61 100 10/24/19 10:18 36.6 C 84 12 103/62 99 10/24/19 05:32 36.9 C 99 H 20 169/92 H 94 Medications Administered Current Inpatient Medications Acetaminophen (Tylenol) 1,000 mg PO Q8 [facility] Stop: 11/23/19 13:59 Last Admin: 10/25/19 21:30 Dose: 1,000 mg Documented by: Ascorbic Acid (Vitamin C) 500 mg PO BIDM [facility] Stop: 11/23/19 16:59 Last Admin: 10/25/19 18:22 Dose: 500 mg Documented by: Aspirin (Ecotrin Ectab) 81 mg PO BID [facility] Stop: 11/23/19 20:59 Last Admin: 10/25/19 21:30 Dose: 81 mg Documented by: Bisacodyl (Dulcolax) 10 mg KS DAILY PRN PRN Reason: Constipation Stop: 11/23/19 10:29 Dextrose (Dextrose 50%) 25 - 50 ml IV UD PRN; Protocol PRN Reason: Hypoglycemia Protocol Stop: 11/23/19 11:14 Diphenhydramine HCl (Benadryl Capsule) 25 mg PO Q8H PRN PRN Reason: Itching Stop: 11/23/19 10:29 Diphenhydramine HCl (Benadryl) 25 mg IV Q8H PRN PRN Reason: Itching Stop: 11/23/19 10:29 Docusate Sodium (Colace) 100 mg PO BID [facility] Stop: 11/23/19 20:59 Last Admin: 10/25/19 21:29 Dose: 100 mg Documented by: Ferrous Gluconate (Ferrous Gluconate) 324 mg PO BIDM [facility] Stop: 11/23/19 16:59 Last Admin: 10/25/19 18:23 Dose: 324 mg Documented by: Glucagon (Glucagen) 1 mg IM UD PRN; Protocol PRN Reason: Hypoglycemia Protocol Stop: 11/23/19 11:14 Glucose (Glucose 40%) 15 - 30 gm PO UD PRN; Protocol PRN Reason: Hypoglycemia Protocol Stop: 11/23/19 11:14 Glucose (Dex4 Glucose) 4 - 8 tabs PO UD PRN; Protocol PRN Reason: Hypoglycemia Protocol Stop: 11/23/19 11:14 Hydromorphone HCl (Dilaudid) 0.25 mg IV NOW PRN PRN Reason: Pain Stop: 11/07/19 10:45 Last Admin: 10/24/19 11:01 Dose: 0.25 mg Documented by: Hydromorphone HCl (Dilaudid) 0.5 mg IV Q4H PRN PRN Reason: Pain Stop: 11/07/19 21:11 Insulin Aspart (Novolog Flexpen) 0 units SC ACHS [facility] Stop: 11/23/19 11:29 Last Admin: 10/25/19 22:21 Dose: Not Given Documented by: Insulin Glargine (Lantus Solostar Pen) 0 units SQ DAILY [facility]; Protocol Stop: 11/25/19 08:59 Magnesium Hydroxide (Milk Of Magnesia) 30 ml PO Q6H PRN PRN Reason: Constipation Stop: 11/23/19 10:29 Metformin HCl (Glucophage Er) 500 mg PO BIDM [facility] Stop: 11/24/19 16:59 Last Admin: 10/25/19 18:23 Dose: 500 mg Documented by: Metoclopramide HCl (Reglan) 10 mg IV Q6H PRN PRN Reason: Nausea And Vomiting Stop: 11/23/19 10:29 Miscellaneous (Carbohydrates For Hypoglycemia) 15 - 30 gm PO UD PRN PRN Reason: Hypoglycemia Treatment Stop: 11/23/19 11:14 Miscellaneous Information (Consult Glycemic Management Pharmacy) 1 ea N/A UD PRN PRN Reason: Consult Stop: 11/23/19 11:08 Multivitamins (Multivitamin Tab) 1 tab PO QAM [facility] Stop: 11/24/19 08:59 Last Admin: 10/25/19 08:53 Dose: 1 tab Documented by: Naloxone HCl (Narcan) 0.1 mg IV Q5M PRN PRN Reason: Oversedation/Resp Depression Stop: 11/23/19 10:29 Ondansetron HCl (Zofran) 4 mg IV Q6H PRN PRN Reason: Nausea And Vomiting Stop: 11/23/19 10:29 Oxycodone HCl (Roxicodone Immediate Rel) 5 - 10 mg PO Q4H PRN PRN Reason: Pain or Pre PT Stop: 11/07/19 10:29 Last Admin: 10/25/19 21:58 Dose: 10 mg Documented by: Polyethylene Glycol (Miralax Powder Packet) 17 gm PO 2XWK PRN PRN Reason: Constipation Stop: 11/23/19 10:29 Last Admin: 10/25/19 05:49 Dose: 17 gm Documented by: Sennosides (Senokot) 17.2 mg PO HS DANIELLE Stop: 11/23/19 20:59 Last Admin: 10/25/19 21:54 Dose: 17.2 mg Documented by: Vitamin D (Vitamin D3) 2,000 units PO QAM DANIELLE Stop: 11/24/19 08:59 Last Admin: 10/25/19 08:54 Dose: 2,000 units Documented by: PG Care Time/CCT Total # of Minutes Spent Total Time Spent with Patient: Total time spent is greater than 50% in coordination of care (as documented) at patient's floor/unit and/or counseling patient: Coding Level of Care Code 95868 Inpt Consult Level 3 Diagnoses Osteoarthritis of right knee M17.11 Hypertension I10 GERD (gastroesophageal reflux disease) K21.9 Diabetes mellitus, type 2 E11.9
[2019-10-24] MEDS: ASCORBIC ACID 500 MG TAB PO SCH (18:20)
[2019-10-24] MEDS: FERROUS GLUCONATE 324 MG TAB PO SCH (18:20)
[2019-10-24] MEDS ORDERED: METFORMIN HCL ER 500 MG TABCR PO SCH (21:00)
[2019-10-24] MEDS ORDERED: HYDROmorphone INJ 0.5 MG/0.5 ML SYR IV PRN (21:12)
[2019-10-24] MEDS: OXYCODONE HCL IR 5 MG TAB (IMMEDIATE RELEASE) PO PRN (21:17)
[2019-10-24] MEDS: ASPIRIN 81 MG ECTAB PO SCH (21:17)
[2019-10-24] MEDS: SENNA 8.6 MG TAB PO SCH (21:17)
[2019-10-24] MEDS: DOCUSATE SODIUM 100 MG CAP PO SCH (21:18)
[2019-10-25] MEDS: ACETAMINOPHEN 500 MG TAB PO SCH ×3 (05:48→21:30)
[2019-10-25] MEDS: OXYCODONE HCL IR 5 MG TAB (IMMEDIATE RELEASE) PO PRN ×4 (05:48→21:58)
[2019-10-25] MEDS: POLYETHYLENE (MIRALAX) 17 GM PACK PO PRN (05:49)
[2019-10-25 06:07] LABS: Hematocrit (blood only) 33.1 % (37-47); Hemoglobin 10.6 g/dL (12.0-16.0); Mean Corpuscular Hemoglobin 28.7 pg (25-34); Mean Corpuscular Volume 89.7 fL (80-100); Mean Platelet Volume 11.6 fL (7.4-10.4); Platelet Count 190 K/uL (130-400); RDW Coefficient of Variation 13.6 % (11.5-14.5); RDW Standard Deviation 44.7 fL (36.4-46.3); Red Blood Count 3.69 M/uL (4.2-5.4); White Blood Count 12.34 K/uL (4.8-10.8)
[2019-10-25 06:46] LABS: BUN Creatinine Ratio 18.8 (10-20); Creatinine Clr Calc Pharmacy 61.1 ml/min; Est GFR (African American) 66.1; Potassium 4.2 mmol/L (3.5-5.1)
[2019-10-25] MEDS: FERROUS GLUCONATE 324 MG TAB PO SCH ×2 (08:50→18:23)
[2019-10-25] MEDS: ASCORBIC ACID 500 MG TAB PO SCH ×2 (08:51→18:22)
[2019-10-25] MEDS: ASPIRIN 81 MG ECTAB PO SCH ×2 (08:52→21:30)
[2019-10-25] MEDS: DOCUSATE SODIUM 100 MG CAP PO SCH ×2 (08:52→21:29)
[2019-10-25] MEDS: MULTIVITAMIN TAB PO SCH (08:53)
[2019-10-25] MEDS: CHOLECALCIFEROL 1,000 UNITS 25 MCG TAB PO SCH (08:54)
[2019-10-25] MEDS ORDERED: hydroCHLOROthiazide 25 MG TAB PO SCH (09:00)
[2019-10-25] MEDS ORDERED: lisinopriL 10 MG TAB PO SCH (09:00)
[2019-10-25] MEDS ORDERED: INSULIN GLARGINE SOLOSTAR 100 UNITS/ML 3 ML PEN SC SCH (09:00)
[2019-10-25] MEDS: INSULIN ASPART 100 UNITS/ML 3 ML PEN SC SCH ×4 (09:07→22:21)
--- NOTE | 2019-10-25 10:05 | Orthopedic Progress Note ---
Date of Service October 25, 2019 Assessment & Plan (1) Osteoarthritis of right knee: S/P R total knee arthroplasty POD 1, doing as well as expected 1) Pain controlled with oral pain meds. Continue Pain management. Continue ice. 2) Tolerating PO diabetic diet. Continue. Encourage PO fluids. 3) DVT prophylaxis includes B TEDS for 2 weeks, and foot pumps while in hospital. ASA 81mg BID. Upon D/C TEDS x 3weeks and ASA 81mg BID x 6weeks. 4) WBAT R LE with walker. R knee immobilizer x 48hrs or until good quad control while ambulating, then D/C. 5) Appreciate Medical/Hospitalist consult for medical management, patient is diabetic. 6) Keep dressing intact. Evaluate daily. Reinforce with 4x4s if needed. Plan to change to Silverlon on POD 2 or day of D/C, whichever comes first. 6) PT/OT evaluate and treat. 7) Blasting Entryman for D/C plans. Patient prefers HHPT. Admission and Anticipated Discharge Date Admission Date: October 24, 2019 Subjective Doing as well as expected Review of Systems Review of Systems: All systems reviewed & are unremarkable except as noted in HPI & below Physical Exam Physical Exam: RLE: Dressing is clean, dry, intact. Calf is soft and nontender. Neurovascularly intact. Sitting comfortably with the knee bent 90 degrees at the edge of her bed eating breakfast. Results & Data ([facility]) Vital Signs (Past 12 Hours) Vital Signs Temp Pulse Pulse Resp BP BP Pulse Ox 10/25/19 07:22 36.8 C 77 14 108/78 95 10/25/19 03:20 36.8 C 76 16 107/71 95 10/24/19 23:40 36.5 C 71 16 156/83 H 96 Laboratory Results 10/25/19 10/25/19 10/25/19 Range/Units 08:03 05:39 05:39 WBC 12.34 H (4.8-10.8) K/uL RBC 3.69 L (4.2-5.4) M/uL Hgb 10.6 L (12.0-16.0) g/dL Hct 33.1 L (37-47) % MCV 89.7 (80-100) fL MCH 28.7 (25-34) pg MCHC 32.0 (32-36) g/dL RDW Std Deviation 44.7 (36.4-46.3) fL RDW Coeff of Alfonso 13.6 (11.5-14.5) % Plt Count 190 (130-400) K/uL MPV 11.6 H (7.4-10.4) fL Sodium 138 (136-145) mmol/L Potassium 4.2 (3.5-5.1) mmol/L Chloride 107 (98-107) mmol/L Carbon Dioxide 27 (21-32) mmol/L Anion Gap 4.0 (3-11) BUN 19 H (7-18) mg/dl Creatinine 1.03 (0.6-1.2) mg/dl Est Cr Clr Drug Dosing 61.1 ml/min Est GFR ( Amer) 66.1 Est GFR (Non-Af Amer) 57.0 BUN/Creatinine Ratio 18.8 (10-20) Glucose 142 H (70-99) mg/dl POC Glucose 153 H (70-99) mg/dl Calcium 8.0 L (8.5-10.1) mg/dl 10/24/19 10/24/19 10/24/19 Range/Units 20:52 17:26 12:21 WBC (4.8-10.8) K/uL RBC (4.2-5.4) M/uL Hgb (12.0-16.0) g/dL Hct (37-47) % MCV (80-100) fL MCH (25-34) pg MCHC (32-36) g/dL RDW Std Deviation (36.4-46.3) fL RDW Coeff of Alfonso (11.5-14.5) % Plt Count (130-400) K/uL MPV (7.4-10.4) fL Sodium (136-145) mmol/L Potassium (3.5-5.1) mmol/L Chloride (98-107) mmol/L Carbon Dioxide (21-32) mmol/L Anion Gap (3-11) BUN (7-18) mg/dl Creatinine (0.6-1.2) mg/dl Est Cr Clr Drug Dosing ml/min Est GFR ( Amer) Est GFR (Non-Af Amer) BUN/Creatinine Ratio (10-20) Glucose (70-99) mg/dl POC Glucose 155 H 160 H 165 H (70-99) mg/dl Calcium (8.5-10.1) mg/dl /11/09 Range/Units 10:21 WBC (4.8-10.8) K/uL RBC (4.2-5.4) M/uL Hgb (12.0-16.0) g/dL Hct (37-47) % MCV (80-100) fL MCH (25-34) pg MCHC (32-36) g/dL RDW Std Deviation (36.4-46.3) fL RDW Coeff of Alfonso (11.5-14.5) % Plt Count (130-400) K/uL MPV (7.4-10.4) fL Sodium (136-145) mmol/L Potassium (3.5-5.1) mmol/L Chloride (98-107) mmol/L Carbon Dioxide (21-32) mmol/L Anion Gap (3-11) BUN (7-18) mg/dl Creatinine (0.6-1.2) mg/dl Est Cr Clr Drug Dosing ml/min Est GFR ( Amer) Est GFR (Non-Af Amer) BUN/Creatinine Ratio (10-20) Glucose (70-99) mg/dl POC Glucose 148 H (70-99) mg/dl Calcium (8.5-10.1) mg/dl
--- NOTE | 2019-10-25 13:20 | Orthopedic Progress Note ---
Date of Service October 25, 2019 Assessment & Plan (1) Osteoarthritis of right knee: S/P R total knee arthroplasty POD 1, doing as well as expected 1) Pain controlled with oral pain meds. Continue Pain management. Continue ice. 2) Tolerating PO diabetic diet. Continue. Encourage PO fluids. 3) DVT prophylaxis includes B TEDS for 2 weeks, and foot pumps while in hospital. ASA 81mg BID. Upon D/C TEDS x 3weeks and ASA 81mg BID x 6weeks. 4) WBAT R LE with walker. R knee immobilizer x 48hrs or until good quad control while ambulating, then D/C. 5) Appreciate Medical/Hospitalist consult for medical management, patient is diabetic. 6) Keep dressing intact. Evaluate daily. Reinforce with 4x4s if needed. Plan to change to Silverlon on POD 2 or day of D/C, whichever comes first. 6) PT/OT evaluate and treat. 7) [employer] Drawer for D/C plans. Patient prefers HHPT. Plan to D/C POD 2 on 10/26/19 after AM PT. Admission and Anticipated Discharge Date Admission Date: October 24, 2019 Subjective Eating lunch in bed. present. Had PT. Patient just took pain pill. Prefers to stay until tomorrow. Hoping to get another round of PT in. Has not had BM. Able to void. Tolerating PO fluids, diet, and pain medication. Denies f/c/s, CP, SOB, N/V, lightheadedness or dizziness. Physical Exam Physical Exam: Sitting up in bed. Right knee dressings intact. Ice to right knee. B foot pumps in place. Left leg with dennise hose. Able to wiggle B toes and ankles. B calves soft and neg homans. 12/25 B EHL, TA, gastroc strength. B NV intact. Palpable DP and PT pulses. Sensation intact to feet. At rest right knee in full extension. Results & Data ([facility]) Vital Signs (Past 12 Hours) Vital Signs Temp Pulse Pulse Resp BP BP Pulse Ox 10/25/19 11:35 36.8 C 78 16 120/84 92 10/25/19 07:22 36.8 C 77 14 108/78 95 10/25/19 03:20 36.8 C 76 16 107/71 95 Laboratory Results 0310/25/19 10/25/19 Range/Units 12:03 08:03 05:39 WBC (4.8-10.8) K/uL RBC (4.2-5.4) M/uL Hgb (12.0-16.0) g/dL Hct (37-47) % MCV (80-100) fL MCH (25-34) pg MCHC (32-36) g/dL RDW Std Deviation (36.4-46.3) fL RDW Coeff of Alfonso (11.5-14.5) % Plt Count (130-400) K/uL MPV (7.4-10.4) fL Sodium 138 (136-145) mmol/L Potassium 4.2 (3.5-5.1) mmol/L Chloride 107 (98-107) mmol/L Carbon Dioxide 27 (21-32) mmol/L Anion Gap 4.0 (3-11) BUN 19 H (7-18) mg/dl Creatinine 1.03 (0.6-1.2) mg/dl Est Cr Clr Drug Dosing 61.1 ml/min Est GFR ( Amer) 66.1 Est GFR (Non-Af Amer) 57.0 BUN/Creatinine Ratio 18.8 (10-20) Glucose 142 H (70-99) mg/dl POC Glucose 113 H 153 H (70-99) mg/dl Calcium 8.0 L (8.5-10.1) mg/dl 10/25/19 10/24/19 10/24/19 Range/Units 05:39 20:52 17:26 WBC 12.34 H (4.8-10.8) K/uL RBC 3.69 L (4.2-5.4) M/uL Hgb 10.6 L (12.0-16.0) g/dL Hct 33.1 L (37-47) % MCV 89.7 (80-100) fL MCH 28.7 (25-34) pg MCHC 32.0 (32-36) g/dL RDW Std Deviation 44.7 (36.4-46.3) fL RDW Coeff of Alfonso 13.6 (11.5-14.5) % Plt Count 190 (130-400) K/uL MPV 11.6 H (7.4-10.4) fL Sodium (136-145) mmol/L Potassium (3.5-5.1) mmol/L Chloride (98-107) mmol/L Carbon Dioxide (21-32) mmol/L Anion Gap (3-11) BUN (7-18) mg/dl Creatinine (0.6-1.2) mg/dl Est Cr Clr Drug Dosing ml/min Est GFR ( Amer) Est GFR (Non-Af Amer) BUN/Creatinine Ratio (10-20) Glucose (70-99) mg/dl POC Glucose 155 H 160 H (70-99) mg/dl Calcium (8.5-10.1) mg/dl
--- NOTE | 2019-10-25 15:04 | Pharmacy Report ---
Glycemic Control Progress Note - Date of Service October 25, 2019 - Scope Glycemic Pharmacist consulted for glycemic control to write orders per [facility] inpatient glycemic control protocol. - Objective Accuchecks BSG(last 24 hours):: 10/24/19 10/24/19 10/25/19 17:26 20:52 05:39 Glucose 142 H POC Glucose 160 H 155 H 10/25/19 10/25/19 08:03 12:03 Glucose POC Glucose 153 H 113 H HbA1c:: Hemoglobin A1c 6.3 % (4.5-5.6) H 09/28/19 09:40 - Recent Pertinent Medications The patient is currently receiving: * Basal insulin: Lantus 15 units every 24 hours * Correctional Insulin: Novolog Correction per scale ACHS Goal Range: Low 110 mg/dL - High 140 mg/dL Correction Factor: 25 mg/dL/unit * Prandial insulin: Per carb ratio of 1 unit per 8 grams CHO consumed - Outpatient Anti-Diabetic Meds metformin 500 mg PO BID - Assessment & Plan ASSESSMENT: * See progress note from 10/24/2019 for more background info, in short: * Pt receiving SQ basal bolus insulin regimen for hyperglycemia secondary to baseline DM (outpatient regimen on hold). Patient POD 1. * Patient is currently receiving an average of 31 units of insulin per day * 15 units of basal insulin * 16 units of prandial/correctional insulin * BSGs ranging 148 - 165 mg/dl over the past 24hrs * Changes needed to insulin regimen: * AM Fasting BSG = 153 mg/dl. This is slightly above goal range for patient based on inpatient targets and co-morbidities. Therefore Basal insulin will be increased to 18 units (20% increase). Scale for tomorrow morning * Post-prandial BSGs remained steady yesterday. Loosen today since metformin will be added. * Total daily dose = ~30 units. PLAN FOR INPATIENT GLYCEMIC CONTROL: * Increasing Lantus to 18 units SQ qAM for today then 10 units for BSG less than 90; 15 units for BSG 90-140 mg/dL; 18 units for BSG greater than 140 mg/dL * LOOSENING correction factor to 30 mg/dl/unit * LOOSENING carb ratio to 1 unit per 10 grams CHO consumed * Continuing goal range of Low 110 mg/dL - High 140 mg/dL RECOMMENDATIONS FOR DISCHARGE: * Patient's HbA1C well controlled recommended continuing home regimen. * Please note that the plan above was derived based on current level of insulin resistance and hospital stress. These recommendations are appropriate for inpatient admission only. Plan of care upon discharge will need to be reassessed to avoid potential outpatient hypo/hyperglycemia. Thank you.
[2019-10-25] MEDS: METFORMIN HCL ER 500 MG TABCR PO SCH (18:23)
[2019-10-25] MEDS: SENNA 8.6 MG TAB PO SCH (21:54)
--- NOTE | 2019-10-25 22:44 | Hospitalist Progress Note ---
Date of Service October 25, 2019 Assessment & Plan (1) Osteoarthritis of right knee: s/p TKA with Dr. Johns, POD 1 urinating, + flatus, no BM yet pain reasonably well controlled, ambulating in the room with assistance encourage ISB use labs stable, slight drop in Hb to 10.6 but BP stable, no further blood loss expected agree that she should be ready for d/c to home tomorrow will sign off at this time (2) Hypertension: continue to hold lisinopril and HCTZ as BP low normal Cr is stable if patient goes home tomorrow, would be safe to resume lisinopril and HCTZ the day after discharge, 10/26 (3) GERD (gastroesophageal reflux disease): no active symptoms (4) Diabetes mellitus, type 2: hold Metformin while admitted use Novolog SS glycemic management consult placed by orthopedics monitor for hypoglycemia, no episodes Admission and Anticipated Discharge Date Admission Date: October 24, 2019 Anticipated date of discharge: 10/26/19 Subjective patient doing well today, POD 1 no chest pain, no dyspnea she is urinating, + flatus, no BM yet eating okay, says she does not like the food no fever or chills, pain in right knee well controlled participating in therapy labs show a normal Cr and electrolytes stable Hb down slightly to 10.6 vitals stable orthopedics planning for d/c tomorrow Review of Systems Review of Systems: All systems reviewed & are unremarkable except as noted in HPI & below Musculoskeletal: + joint pain (right knee) Physical Exam Constitutional: WD/WN, vitals as above + overweight Eyes: PERRL, conjunctivae normal, anicteric sclerae ENMT: external ear and nose normal, oropharynx normal Neck: trachea midline, no thyromegaly Respiratory: normal respiratory effort, lungs clear to auscultation Cardiovascular: RRR, no murmur, no edema Gastrointestinal (Abdomen): normal bowel sounds, soft, nontender, no hepatosplenomegaly Musculoskeletal: no cyanosis or clubbing, extremities motor strength 5/5 (right knee swollen, tender, slightly decreased ROM) Skin: no rashes, warm and dry Neurologic: patellar DTR's 2+ bilat, sensation intact and PERRL, EOMI, accommodation nl, no face palsy, no dysarthria Psychiatric: A+Ox3, euthymic affect Lymphatic: no cervical or axillary lymphadenopathy Results & Data ([facility]) Vital Signs (Past 12 Hours) Vital Signs Temp Pulse Pulse Resp BP BP Pulse Ox 10/25/19 16:14 36.8 C 79 16 115/73 96 10/25/19 14:32 94 10/25/19 11:35 36.8 C 78 16 120/84 92 Laboratory Results Laboratory Results - last 24 hr 10/25/19 10/25/19 10/25/19 05:39 05:39 08:03 WBC 12.34 H RBC 3.69 L Hgb 10.6 L Hct 33.1 L MCV 89.7 MCH 28.7 MCHC 32.0 RDW Std Deviation 44.7 RDW Coeff of Alfonso 13.6 Plt Count 190 MPV 11.6 H Sodium 138 Potassium 4.2 Chloride 107 Carbon Dioxide 27 Anion Gap 4.0 BUN 19 H Creatinine 1.03 Est Cr Clr Drug Dosing 61.1 Est GFR ( Amer) 66.1 Est GFR (Non-Af Amer) 57.0 BUN/Creatinine Ratio 18.8 Glucose 142 H POC Glucose 153 H Calcium 8.0 L 10/25/19 10/25/19 10/25/19 12:03 17:28 20:12 WBC RBC Hgb Hct MCV MCH MCHC RDW Std Deviation RDW Coeff of Alfonso Plt Count MPV Sodium Potassium Chloride Carbon Dioxide Anion Gap BUN Creatinine Est Cr Clr Drug Dosing Est GFR ( Amer) Est GFR (Non-Af Amer) BUN/Creatinine Ratio Glucose POC Glucose 113 H 134 H 132 H Calcium Medications Administered Current Inpatient Medications Acetaminophen (Tylenol) 1,000 mg PO Q8 [facility] Stop: 11/23/19 13:59 Last Admin: 10/25/19 21:30 Dose: 1,000 mg Documented by: Ascorbic Acid (Vitamin C) 500 mg PO BIDM [facility] Stop: 11/23/19 16:59 Last Admin: 10/25/19 18:22 Dose: 500 mg Documented by: Aspirin (Ecotrin Ectab) 81 mg PO BID [facility] Stop: 11/23/19 20:59 Last Admin: 10/25/19 21:30 Dose: 81 mg Documented by: Bisacodyl (Dulcolax) 10 mg MD DAILY PRN PRN Reason: Constipation Stop: 11/23/19 10:29 Dextrose (Dextrose 50%) 25 - 50 ml IV UD PRN; Protocol PRN Reason: Hypoglycemia Protocol Stop: 11/23/19 11:14 Diphenhydramine HCl (Benadryl Capsule) 25 mg PO Q8H PRN PRN Reason: Itching Stop: 11/23/19 10:29 Diphenhydramine HCl (Benadryl) 25 mg IV Q8H PRN PRN Reason: Itching Stop: 11/23/19 10:29 Docusate Sodium (Colace) 100 mg PO BID [facility] Stop: 11/23/19 20:59 Last Admin: 10/25/19 21:29 Dose: 100 mg Documented by: Ferrous Gluconate (Ferrous Gluconate) 324 mg PO BIDM [facility] Stop: 11/23/19 16:59 Last Admin: 10/25/19 18:23 Dose: 324 mg Documented by: Glucagon (Glucagen) 1 mg IM UD PRN; Protocol PRN Reason: Hypoglycemia Protocol Stop: 11/23/19 11:14 Glucose (Glucose 40%) 15 - 30 gm PO UD PRN; Protocol PRN Reason: Hypoglycemia Protocol Stop: 11/23/19 11:14 Glucose (Dex4 Glucose) 4 - 8 tabs PO UD PRN; Protocol PRN Reason: Hypoglycemia Protocol Stop: 11/23/19 11:14 Hydromorphone HCl (Dilaudid) 0.25 mg IV NOW PRN PRN Reason: Pain Stop: 11/07/19 10:45 Last Admin: 10/24/19 11:01 Dose: 0.25 mg Documented by: Hydromorphone HCl (Dilaudid) 0.5 mg IV Q4H PRN PRN Reason: Pain Stop: 11/07/19 21:11 Insulin Aspart (Novolog Flexpen) 0 units SC [facility] Stop: 11/23/19 11:29 Last Admin: 10/25/19 22:21 Dose: Not Given Documented by: Insulin Glargine (Lantus Solostar Pen) 0 units SQ DAILY [facility]; Protocol Stop: 11/25/19 08:59 Magnesium Hydroxide (Milk Of Magnesia) 30 ml PO Q6H PRN PRN Reason: Constipation Stop: 11/23/19 10:29 Metformin HCl (Glucophage Er) 500 mg PO BIDM [facility] Stop: 11/24/19 16:59 Last Admin: 10/25/19 18:23 Dose: 500 mg Documented by: Metoclopramide HCl (Reglan) 10 mg IV Q6H PRN PRN Reason: Nausea And Vomiting Stop: 11/23/19 10:29 Miscellaneous (Carbohydrates For Hypoglycemia) 15 - 30 gm PO UD PRN PRN Reason: Hypoglycemia Treatment Stop: 11/23/19 11:14 Miscellaneous Information (Consult Glycemic Management Pharmacy) 1 ea N/A UD PRN PRN Reason: Consult Stop: 11/23/19 11:08 Multivitamins (Multivitamin Tab) 1 tab PO QAM [facility] Stop: 11/24/19 08:59 Last Admin: 10/25/19 08:53 Dose: 1 tab Documented by: Naloxone HCl (Narcan) 0.1 mg IV Q5M PRN PRN Reason: Oversedation/Resp Depression Stop: 11/23/19 10:29 Ondansetron HCl (Zofran) 4 mg IV Q6H PRN PRN Reason: Nausea And Vomiting Stop: 11/23/19 10:29 Oxycodone HCl (Roxicodone Immediate Rel) 5 - 10 mg PO Q4H PRN PRN Reason: Pain or Pre PT Stop: 11/07/19 10:29 Last Admin: 10/25/19 21:58 Dose: 10 mg Documented by: Polyethylene Glycol (Miralax Powder Packet) 17 gm PO 2XWK PRN PRN Reason: Constipation Stop: 11/23/19 10:29 Last Admin: 10/25/19 05:49 Dose: 17 gm Documented by: Sennosides (Senokot) 17.2 mg PO [facility] Stop: 11/23/19 20:59 Last Admin: 10/25/19 21:54 Dose: 17.2 mg Documented by: Vitamin D (Vitamin D3) 2,000 units PO QAM [facility] Stop: 11/24/19 08:59 Last Admin: 10/25/19 08:54 Dose: 2,000 units Documented by: PG Care Time/CCT Total # of Minutes Spent Total Time Spent with Patient: Total time spent is greater than 50% in coordination of care (as documented) at patient's floor/unit and/or counseling patient: Coding Level of Care Code 84337 Subseq Hosp Care Lvl 2 Diagnoses Osteoarthritis of right knee M17.11 Hypertension I10 GERD (gastroesophageal reflux disease) K21.9 Diabetes mellitus, type 2 E11.9
[2019-10-26] MEDS: ACETAMINOPHEN 500 MG TAB PO SCH ×2 (06:00→13:43)
[2019-10-26] MEDS: OXYCODONE HCL IR 5 MG TAB (IMMEDIATE RELEASE) PO PRN ×2 (07:37→15:59)
--- NOTE | 2019-10-26 07:54 | Orthopedic Progress Note ---
Date of Service October 26, 2019 Assessment & Plan (1) Osteoarthritis of right knee: S/P R total knee arthroplasty POD 2, doing as well as expected 1) Pain controlled with oral pain meds. Continue Pain management. Continue ice. 2) Tolerating PO diabetic diet. Continue. Encourage PO fluids. 3) DVT prophylaxis includes B TEDS for 2 weeks, and foot pumps while in hospital. ASA 81mg BID. Upon D/C TEDS x 3weeks and ASA 81mg BID x 6weeks. 4) WBAT R LE with walker. R knee immobilizer x 48hrs or until good quad control while ambulating, then D/C. 5) Appreciate Medical/Hospitalist consult for medical management, patient is diabetic. 6) Keep dressing intact. Evaluate daily. Reinforce with 4x4s if needed. Plan to change to Silverlon on POD 2 or day of D/C, whichever comes first. 6) PT/OT evaluate and treat. 7) Encouraged OOB and to consider suppository to aid with BM. 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 Patient prefers HHPT. Plan to D/C POD 2 on 10/26/19 after AM PT, if medically stable & BM/Flatus. Admission and Anticipated Discharge Date Admission Date: October 24, 2019 Anticipated date of discharge: 10/26/19 Subjective Feeling ok, would feel better if had a BM Review of Systems Review of Systems: -Flatus/BM Physical Exam Physical Exam: RLE: Silverlon Dressing Applied is clean and intact. Calf is soft and nontender. Neurovascularly intact. Results & Data ([facility]) Vital Signs (Past 12 Hours) Vital Signs Temp Pulse Resp BP Pulse Ox 10/25/19 22:37 36.9 C 78 16 132/85 95 Laboratory Results 10/25/19 10/25/19 10/25/19 Range/Units 20:12 17:28 12:03 POC Glucose 132 H 134 H 113 H (70-99) mg/dl 10/25/19 Range/Units 08:03 POC Glucose 153 H (70-99) mg/dl
[2019-10-26] MEDS ORDERED: INSULIN GLARGINE SOLOSTAR 100 UNITS/ML 3 ML PEN SQ SCH (09:00)
[2019-10-26] MEDS: DOCUSATE SODIUM 100 MG CAP PO SCH (09:03)
[2019-10-26] MEDS: FERROUS GLUCONATE 324 MG TAB PO SCH (09:04)
[2019-10-26] MEDS: MULTIVITAMIN TAB PO SCH (09:04)
[2019-10-26] MEDS: ASCORBIC ACID 500 MG TAB PO SCH (09:04)
[2019-10-26] MEDS: CHOLECALCIFEROL 1,000 UNITS 25 MCG TAB PO SCH (09:04)
[2019-10-26] MEDS: METFORMIN HCL ER 500 MG TABCR PO SCH (09:04)
[2019-10-26] MEDS: ASPIRIN 81 MG ECTAB PO SCH (09:04)
[2019-10-26] MEDS: INSULIN ASPART 100 UNITS/ML 3 ML PEN SC SCH ×2 (09:05→12:54)
[2019-10-26] MEDS: POLYETHYLENE (MIRALAX) 17 GM PACK PO PRN (13:03)
--- NOTE | 2019-10-26 14:40 | Pharmacy Report ---
Pharmacy Glycemic Short Note 2 - Date of Service October 26, 2019 - Glycemic Short BSG Results (Last 24 hours): 10/25/19 10/25/19 10/26/19 17:28 20:12 08:16 POC Glucose 134 H 132 H 157 H 10/26/19 12:16 POC Glucose 102 H OUTPATIENT ANTIDIABETIC REGIMEN: * Metformin ER 500 mg BID * A1c 6.3% on 09/28/19 ASSESSMENT: * Patient received 38 units of insulin yesterday, 18 of this being basal * Metformin has been resumed and steroids should be completely worn off by this point * Will plan to discontinue basal insulin in preparation for discharge PLAN FOR INPATIENT GLYCEMIC CONTROL: * Metformin ER 500 mg BID * Basal insulin - discontinue * Bolus insulin - no change * NovoLog per scale ACHS or Q6hrs while NPO * Goal Range: Low 110 mg/dL - High 140 mg/dL * Correction Factor: 30 mg/dL/unit * Nutritional / Prandial insulin per carb ratio of 1 unit per 10 grams CHO consumed
--- NOTE | 2019-10-26 15:28 | Orthopedic Progress Note ---
Date of Service October 26, 2019 Assessment & Plan (1) Osteoarthritis of right knee: S/P R total knee arthroplasty POD 2, doing as well 1) Pain controlled with oral pain meds. Continue Pain management. Continue ice. 2) Tolerating PO diabetic diet. Continue. Encourage PO fluids. 3) DVT prophylaxis Upon D/C TEDS x 3weeks and ASA 81mg BID x 6weeks. in house thigh high teds changed to knee high to avoid skin breakdown 4) WBAT R LE with walker. D/C immobilizer 5) Appreciate Medical/Hospitalist consult for medical management, patient is diabetic. Per medicine deems stable for D/C. 6) Silverlon dressing to remain on until f/u appointment in office. 6) Appreciate PT/OT tx. 7) Patient advised to continue with home use of miralax for constipation. Has flatus. 8) Skiing Teacher for D/C plans. Patient prefers HHPT. Plan to D/C today. Admission and Anticipated Discharge Date Admission Date: October 24, 2019 Anticipated date of discharge: 10/26/19 Subjective patient doing well today, POD 2 no chest pain, no dyspnea, no abdominal pain she is urinating, + flatus throughout the day, recent suppository eating okay, says she does not like the food, tolerating po fluids no fever or chills, pain in right knee well controlled with po pain meds participating in therapy thigh highs are uncomfortable she is ready to go home this pm Physical Exam Physical Exam: Sitting up in bed. Silverlon dressing intact. B dennise hose on. Abnormal fit to due body habitus. Able to wiggle B toes and ankles. B calves soft and neg homans. 5/5 B EHL, TA, gastroc strength. B NV intact. Palpable DP and PT pulses. Sensation intact to feet. At rest right knee in full extension. Results & Data ([facility]) Vital Signs (Past 12 Hours) Vital Signs Temp Pulse Resp BP Pulse Ox 10/26/19 07:56 36.5 C 82 18 142/80 H 99
--- NOTE | 2019-10-27 08:16 | Operative Report ---
Post Operative Report Pre & Post Diagnosis Operation Date: 10/24/19 07:00 Pre-Op Diagnosis: Right Knee Osteoarthritis Post-Op Diagnosis: Right Knee Osteoarthritis I identified the patient and participated in the time-out.: Yes Procedure Operation Date: 10/24/19 07:00 Actual Procedures p Right Total Knee Arthroplasty(Right) - David Johns MD Surgeon David Johns MD Integrated Logistics Support Manager MD [employer] Hylton PA-C Estimated Blood Loss 110 Findings Consistent with Post-Op Diagnosis Specimens bone and soft tissue Complications none Indications See Dr Johns operative report for full details. Description of Procedure See Dr Johns operative report for full detail. I assisted MD and fellow with case to include prepping, draping, limb and instrument handling, wound closure, dressings. I attest to the content of the Intraoperative Record and any orders documented therein. Any exceptions are noted below.
--- NOTE | 2019-10-30 08:28 | Discharge Summary ---
Date of Service October 26, 2019 Principal Diagnosis Right Knee Osteoarthritis Discharge Data Allergies Allergy/AdvReac Type Severity Reaction Status Date / Time ibuprofen AdvReac Unknown Gastrointestinal Verified 10/24/19 05:30 Upset Consultations 10/24/19 10:30 Consult Case Management - Discharge Planning Routine Consult Hospitalist Routine Procedures Performed Operation Date: 10/24/19 07:00 Actual Procedures p Right Total Knee Arthroplasty(Right) - David Johns MD Ordered Studies 10/24/19 05:00 US - OR guided needle placemen Urgent Hospital Course (1) Osteoarthritis of right knee: 64 yr old female underwent right total knee replacement under spinal anesthesia and femoral nerve block. She tolerated procedure and anesthesia without complications. Admitted to floor. Received 24hrs post-op keflex. Medicine consulted for medical/diabetes management. Metformin held and insulin sliding scale used throughout her stay. Was hypotensive post-op so BP meds held. Labs wnl POD 1. She tolerated po fluids and po diabetic diet. She tolerated po pain medication. PT/OT for ambulation with walker and exercise. Knee immobilizer for 48hrs for quad control while ambulating. DVT prophylaxis consisted of foot pumps, steffi hose, and ASA 81mg bid. POD 2 dressings changed to silverlon waterproof dressing to remain on. Patient was constipated without flatus until POD 2. Stool softners and miralax given through out stay. On POD 2 suppository administered. + Flatus. Deemed stable for DC to home with and Home Health PT. Total Time Total Time Spent Total Time Spent (In Minutes): 20 Discharge Plan Discharge Items Patient Disposition: Home - Self-Care Reason For Visit: Right Knee Osteoarthritis Discharge Diagnosis: Right Knee Osteoarthritis Activity: Per Instructions section Bathing Comment: silverlon dressing is waterproof, you can shower, no baths Exercise Comment: per physical therapy Driving/Machine Use: no driving until cleared by surgeon Weightbearing: Right weightbearing Weightbearing Comment: as tolerated with walker; wean from walker to cane if needed as tolerated Non-emergency contact: Surgeon Call non-emergency contact if: your pain is not controlled, your temperature is above 101.5 and your wound has increased drainage Follow-up/Referrals: Rona Frausto CRNP [Primary Care Provider] - David Johns MD [Physician] - 11/08/19 8:00 am (with Rina Hylton PA-C) Diet: Carb Consistent or DM2 Addtl Attending Provider Instructions: Post-operative Instructions Pain Expect to be in a fair amount of pain after surgery. Remember, our goal is not to eliminate your pain, but to make it tolerable. It is a good idea to stay ahead of your pain by taking the medications you were prescribed once you get home. Typically, the pain starts improving 3-7 days after surgery. You should start weaning off the narcotic pain medication (oxycodone) as soon as your pain improves. Please call our office if your pain is not adequately controlled. You can take tylenol 1000mg every 8hrs for mild to moderate pain. Ice Ice your operative site at least 5 times a day for 15-30 minutes at a time. Make sure you have a thin cloth between the ice or cooling unit and your skin to prevent mclaughlin bite. This is especially important if you received a nerve block. Continue icing your operative site for the first 5-7 days after surgery, then as needed. Diet/Nausea/Vomiting Start by drinking clear liquids and eating crackers. If you can tolerate this, then you may resume your normal diet. If you feel nauseated or vomit, take Zofran/ondansetron (if prescribed). Please call our office if you have intractable nausea or vomiting, or, if after hours, you may go to the Emergency Room for help. Constipation Constipation is a common side effect of narcotic pain medication. If you have not had a bowel movement within 2 days after surgery, we recommend purchasing an over the counter laxative such as Milk of Magnesia, Dulcolax, or Miralax from a local pharmacy, and taking it as instructed. Call our clinic if any questions. Weight bearing and Range of Motion. Weightbearing as tolerated with walker. No restrictions with range of motion. *KNEE IMMOBILIZER x 48hrs AFTER SURGERY WHILE AMBULATING AND THEN CAN STOP (CONTINUE IF YOU DO NOT HAVE GOOD QUAD CONTROL)* Physical therapy Initially you will start with home health physical therapy. At our first visit with at our office we will provide you with script for outpatient physical therapy. Wound care and showering We will inspect your wound at your first post-operative visit, and may do a dressing change at that time. Most patients will be in a water-proof dressing that is removed 14 days after surgery. It is normal to see some dried blood on the dressing. Do not remove your dressing, paper strips or sutures yourself unless you are given permission. Showering is allowed the day after surgery. Do not scrub or remove any dressings. The wound should not be submerged underwater (i.e. in a bathtub or pool) until 4 weeks after surgery STEFFI stockings If you were given white stockings, these are to be worn at all times except to shower and sleep (on both legs) for the first 2-3 weeks after surgery. We will discuss removal at your first follow-up appointment. Driving You may not drive while taking narcotic pain medication. We will discuss return to driving at your first follow-up appointment. Return To Work Your return to work depends on what surgery was done and what type of work you do. Please bring any paperwork your employer needs completed to your first post-operative visit. Also, bring a description of your job duties, as this helps us to understand what risks you may face at work. Travel Avoid long distance travel (greater than 1 hour) in airplanes and cars for the first 6 weeks after surgery if possible. If you must travel, please let us know so we can discuss additional measures to prevent blood clots. Follow-up You should have a follow-up appointment already scheduled for 2 weeks after surgery. If not, please contact our office to make this appointment before you leave the hospital. When to call the office [phone] It is normal to have swelling and bruising in the limb that was operated on. This will improve with time. It is also normal to have fevers for the first 2 days after surgery. Reasons you should call your doctor include: Uncontrolled pain; Nausea, vomiting, or constipation that does not improve with medication; Fevers over 101.5, chills, sweats; Drainage or bleeding from the wound; Foul odor; Spreading areas of redness; Any other concerns. NEW MEDICATIONS: new medications will be sent to your pharmacy: oxycodone, iron, vit c, tylenol, aspirin Pending Studies at Discharge: No Stand-Alone Forms: [facility] [employer], Smoking Cessation Medications and DC Order Prescriptions: New aspirin 81 mg Tablet,Delayed Release (Dr/Ec) 81 mg PO BID 42 Days Qty: 84 RF: 0 acetaminophen 500 mg Tablet 1,000 mg PO Q8 PRN (Reason: pain) Qty: 90 RF: 0 ascorbic acid (vitamin C) [Vitamin C] 500 mg Tablet 500 mg PO BIDM 14 Days Qty: 28 RF: 0 oxycodone 5 mg Tablet 5 - 10 mg PO Q4H PRN (Reason: pain) Qty: 30 RF: 0 ferrous gluconate 324 mg (38 mg iron) Tablet 324 mg PO BIDM 14 Days Qty: 28 RF: 0 Continued cholecalciferol (vitamin D3) [Vitamin D3] 1,000 unit (25 mcg) tablet 2,000 units PO QAM RF: 0 lisinopril 10 mg tablet See Rx Instructions .ROUTE .COMPLEX Qty: 30 RF: 5 hydrochlorothiazide 12.5 mg capsule 12.5 mg PO QAM RF: 0 metformin 500 mg tablet extended release 24 hr 500 mg PO BID RF: 0 polyethylene glycol 3350 [Miralax] 17 gram/dose powder 17 g PO 2XWK PRN (Reason: Constipation) RF: 0 Discontinued naproxen sodium [Aleve] 220 mg Capsule 220 mg PO Q8H PRN (Reason: Pain) RF: 0 Discharge Orders: Discharge Order (Routine); Ordered 10/26/19 Ordered By: Jaymie Valenzuela/Other Patient Handouts: Knee Replace Home After, Knee Replace First Month Admission Data Admit Date/Time: 10/24/19 10:30 Attending Provider: David Johns Admit Provider: David Johns Primary Care Provider: Rona Frausto Other Providers: Hasmukh Jeter ; Tyesha Hudson ; Kassidy Collins ; Per Peterson ; Koko Munguia ; Luly Duncan ; Edgardo Bullard ; Dheeraj Díaz ; Trevin Reynoso ; Vida Muhammad ; Dominique Reyes ; Zahra Mcconnell ; Rj Salcido ; Joy Zazueta ; Delfin Amador ; Rito Monteiro ; Tyesha Recinos ; Evert Steve ; Nataliya Hargrove ; Issac Herron ; Yossi Anderson ; Per Fox ; Soheila Piña ; Angélica Wood ; Karri Berger ; Guevara Negro ; Saida Cobb ; Angel Crowe ; Thompson Lowery ; Raina Lugo ; Jason Caruso ; [facility] Other Interventions: Discharge Summary Assessment (RN) Last Done: 10/26/19 15:25 DC Date/Time DO NOT enter until pt leaves facility: 10/26/19 16:12
== END 2019-10-26 16:12 | disposition home health service (06) | DRG 470 ==
LOC: ASU 04:51 → 3E 10:30

== ENCOUNTER 2022-03-30 05:37 | Inpatient (IN) ==
[2022-03-30] MEDS ORDERED: CEFEPIME 2,000 MG/20 ML VIAL IV STA (06:30)
[2022-03-30] MEDS ORDERED: ACETAMINOPHEN 500 MG TAB PO STA ×2 (06:30→11:42)
[2022-03-30] MEDS ORDERED: SODIUM CHLORIDE 0.9% 1000ML 1,000 ML IV ONE ×2 (06:32→07:49)
--- NOTE | 2022-03-30 06:37 | Electrocardiogram Report ---
Test Reason : Blood Pressure : / mmHG Vent. Rate : 135 BPM Atrial Rate : 135 BPM P-R Int : 136 ms QRS Dur : 112 ms QT Int : 360 ms P-R-T Axes : 041 146 023 degrees QTc Int : 540 ms Sinus tachycardia with Premature ventricular complexes Low voltage QRS Right bundle branch block Left posterior fascicular block Bifascicular block Abnormal ECG When compared with ECG of 19-NOV-2020 09:25, Premature ventricular complexes are now Present Confirmed by Jim Langston ([id number]) on 03/30/2022 6:36:35 AM Referred By: Confirmed By:Jim Langston
[2022-03-30 06:46] LABS: Appearance Urine Cloudy (Clear); Bacteria Urine Automated 4+ (Negative); Bilirubin Urine Negative (Negative); Blood Urine 2+ (Negative); Color Urine Yellow; Epithelial Cell Urine Auto >30 /lpf (0-5); Glucose Urine UA Negative (Negative); Ketones Urine Trace (Negative); Leukocyte Esterase Urine 2+ (Negative); Nitrite Urine Negative (Negative); Protein Urine 1+ (Negative); Specific Gravity Urine 1.016 (1.000-1.030); Urobilinogen Urine Negative (Negative); WBC Urine Automated >30 /hpf (0-5)
[2022-03-30 06:52] LABS: Basophils # (auto) 0.04 K/uL (0-0.2); Basophils % (auto) 0.3 %; Eosinophils # (auto) 0.18 K/uL (0-0.50); Eosinophils % (auto) 1.4 %; Hematocrit (blood only) 40.8 % (34.1-44.9); Hemoglobin 13.2 g/dl (12.0-16.0); Immature Granulocytes # (auto) 0.09 K/uL (0.00-0.02); Immature Granulocytes % (auto) 0.7 %; Lymphocytes % (auto) 16.6 %; Mean Corpuscular Hemoglobin 28.4 pg (25.0-34.0); Mean Corpuscular Hgb Conc 32.4 g/dL (32.0-36.0); Mean Corpuscular Volume 87.9 fL (80.0-100.0); Mean Platelet Volume 11.9 fL (9.4-12.3); Monocytes % (auto) 1.6 %; Neutrophils # (auto) 10.01 K/uL (1.4-6.5); Neutrophils % (auto) 79.4 %; Platelet Count 186 K/uL (130-400); RDW Coefficient of Variation 13.5 % (11.5-14.5); RDW Standard Deviation 43.4 fL (36.4-46.3); Red Blood Count 4.64 M/uL (3.93-5.22); White Blood Count 12.62 K/ul (4.8-10.8)
--- NOTE | 2022-03-30 06:59 | XRay Report ---
XR chest 1V portable HISTORY: 66 years-old Female SEPSIS acute sepsis COMPARISON: Chest radiograph 11/19/2020 TECHNIQUE: Portable AP view of the chest FINDINGS: Cardiac silhouette is enlarged. Pulmonary vascular congestion with interstitial coarsening. The patie nt is mildly rotated towards the left. No pneumothorax, pleural effusion, airspace consolidation or o vert pulmonary edema. Degenerative changes of the shoulders and spine. IMPRESSION: Cardiomegaly with pulmonary vascular congestion. ACT 112: Negative or not required by law. The above report was generated using voice recognition software. It may contain grammatical, syntax o r spelling errors. Electronically signed by: Kyler Bustamante M.D. 03/30/2022 6:57 AM
--- NOTE | 2022-03-30 06:59 | Emergency Department Note ---
History of Present Illness General Chief complaint: Respiratory Problems Stated complaint: CAN'T BREATH,NAUSEA,FEEL LIKE GOING TO PASS OUT Time Seen by Provider: 03/30/22 06:33 History of Present Illness Maximum Pain Intensity: 9 66-year-old female presents to the ED with a chief complaint of shortness of breath and lightheadedness. The patient states that her symptoms started on Wednesday with a sore throat and a nonproductive cough. On Wednesday she found her to be more difficult to breathe. This morning it was even worse. Her breathing is worse with walking. She also reports some lightheadedness with walking. The patient states that she did a home COVID test yesterday that was negative. She did have an episode of nausea and vomiting when she arrived here today. The patient presents with her . He states that he also started having some mild symptoms on Wednesday but his symptoms have mostly abated. The patient reports that she has had 2 of the COVID vaccines as well as a booster. Denies any previous pulmonary issues. Denies any pain or swelling in her legs. She does have a fever here today. Home Medications Medication Instructions Recorded Confirmed Type polyethylene glycol 3350 17 17 g PO 2XWK PRN Constipation 08/03/19 12/31/21 History gram/dose oral powder (Miralax) acetaminophen 500 mg tablet 1,000 mg PO Q8 PRN pain #90 tabs 10/26/19 12/31/21 Rx cholecalciferol (vitamin D3) 25 4,000 unit PO QAM 06/20/20 12/31/21 History mcg (1,000 unit) tablet (Vitamin D3) buspirone 7.5 mg tablet 7.5 mg PO BID PRN anxiety #20 tabs 02/28/21 12/31/21 Rx hydrochlorothiazide 12.5 mg capsule 12.5 mg PO DAILY #90 caps 05/12/21 12/31/21 Rx metformin 500 mg tablet,extended 500 mg PO BID #180 tabs 05/12/21 12/31/21 Rx release 24 hr omeprazole 20 mg capsule,delayed 20 mg PO DAILY #30 caps 08/18/21 12/31/21 Rx release lisinopril 10 mg tablet 10 mg PO DAILY #30 tabs 10/10/21 12/31/21 Rx Allergies Allergy/AdvReac Type Severity Reaction Status Date / Time atorvastatin AdvReac Mild "brain Verified 12/31/21 10:32 fog", "feels weird" ibuprofen AdvReac Mild Gastrointestinal Verified 12/31/21 10:32 Upset rosuvastatin AdvReac Mild Cramping Verified 12/31/21 10:32 of the Muscles Past Med/Surg History Medical History Bladder infection Just finished ABX x Diabetes mellitus, type 2 Fatty liver disease, nonalcoholic GERD (gastroesophageal reflux disease) Hiatal hernia History of kidney stones Hypertension Hypothyroidism 2017 mild elevation, had sx, started thyroid med, no difference in sx, now off med, TSH has been monitored and is nl Mixed hyperlipidemia currently not on tx Osteoarthritis Palpitations Reported to PCP 05/2019; EKG showed ST with frequent PVCs, but patient was taking Sudafed at the time, and symptoms resolved when d/c'd. Schatzki's ring of distal esophagus STRETCHED IN PAST SOB (shortness of breath) on exertion Per PCP 06/08 "She did have a stress test in April of 2018 was able to walk for 2 minutes on the treadmill but then had to stop due to dyspnea on exertion and the direct mail clerk felt that was due to poor conditioning because there is no EKG changes." Surgical History Family history of reaction to anesthesia DAUGHTER SLOW TO WAKE UP History of carpal tunnel release of both wrists History of cholecystectomy History of colonoscopy History of cystoscopy History of esophagogastroduodenoscopy (EGD) History of salpingo-oophorectomy Unsure of side History of tooth extraction all upper teeth History of total knee replacement RT History of tubal ligation Family History Grandmother (Maternal) Family history of diabetes mellitus Grandfather (Maternal) Family history of diabetes mellitus Father Myocardial infarction Denies family history of Ovarian cancer Prostate cancer Breast cancer Colorectal cancer Social History Smoking Status: Never smoker Second Hand Exposure: No (father smoked); Hx Alcohol Use: No Hx Substance Use: No Preferred Language: Occitan Communication Ability: Effective Plant Health Care Technician Required: No Beliefs That Will Affect Care: None marital status: Current Living Situation: Spouse current occupational status: retired How many Children do You have: 2 Feels Safe at Home: Yes Childhood Exposure to Second-Hand Smoke: Yes caffeine: Yes Dental Care, Regularly: Yes Physical Activity Frequency: 1-2 Times per Week Physical Activity Frequency Comment: Moderate House cleaning/some walking Seatbelt Use: always Sunscreen Use: Yes Assistive Devices: Denture - Upper and Glasses Review of Systems A total of 10 systems reviewed and were otherwise negative Physical Exam Vital Signs Vital Signs - 24 hr 03/30/22 05:42 03/30/22 05:56 03/30/22 06:23 Temperature 39.1 C H Temperature Source Oral Pulse Rate 134 H Pulse Rate [Finger] Respiratory Rate 32 H Respiratory Effort / Characteristics Short of Breath SOB on Exertion Non-Labored Spontaneous Respiratory Depth Normal Blood Pressure 134/74 Blood Pressure [Right Arm] Blood Pressure Mean 94 Blood Pressure Mean [Right Arm] Blood Pressure Position [Right Arm] Pulse Oximetry 93 91 Oxygen Delivery Method Room Air Nasal Cannula Oxygen Flow Rate 2 Sepsis Recent Fever Within 48 Hours Yes Sepsis New/Unexplained Change in Mental Status No Sepsis Action Taken by Nursing No Action Required 03/30/22 06:23 03/30/22 06:44 03/30/22 06:44 Temperature Temperature Source Pulse Rate 128 H Pulse Rate [Finger] 129 H 128 H Respiratory Rate 20 20 20 Respiratory Effort / Characteristics Non-Labored Spontaneous Non-Labored Spontaneous Respiratory Depth Normal Normal Blood Pressure Blood Pressure [Right Arm] 138/84 128/58 L Blood Pressure Mean Blood Pressure Mean [Right Arm] 102 81 Blood Pressure Position [Right Arm] Sitting Sitting Pulse Oximetry 93 93 93 Oxygen Delivery Method Nasal Cannula Nasal Cannula Nasal Cannula Oxygen Flow Rate 2 2 2 Sepsis Recent Fever Within 48 Hours Sepsis New/Unexplained Change in Mental Status Sepsis Action Taken by Nursing 03/30/22 07:00 03/30/22 07:00 03/30/22 07:30 Temperature Temperature Source Pulse Rate Pulse Rate [Finger] 123 H 120 H Respiratory Rate 25 H 23 Respiratory Effort / Characteristics Spontaneous Non-Labored Spontaneous Non-Labored Spontaneous Respiratory Depth Normal Blood Pressure Blood Pressure [Right Arm] 115/52 L 113/59 L Blood Pressure Mean Blood Pressure Mean [Right Arm] 73 77 Blood Pressure Position [Right Arm] Pulse Oximetry 93 93 94 Oxygen Delivery Method Room Air Room Air Room Air Oxygen Flow Rate Sepsis Recent Fever Within 48 Hours Sepsis New/Unexplained Change in Mental Status Sepsis Action Taken by Nursing 03/30/22 07:30 03/30/22 08:00 Temperature Temperature Source Pulse Rate Pulse Rate [Finger] Respiratory Rate Respiratory Effort / Characteristics Non-Labored Spontaneous Non-Labored Spontaneous Respiratory Depth Blood Pressure Blood Pressure [Right Arm] Blood Pressure Mean Blood Pressure Mean [Right Arm] Blood Pressure Position [Right Arm] Pulse Oximetry Oxygen Delivery Method Oxygen Flow Rate Sepsis Recent Fever Within 48 Hours Sepsis New/Unexplained Change in Mental Status Sepsis Action Taken by Nursing CONSTITUTIONAL/VITAL SIGNS: Reviewed / noted above. GENERAL: Non-toxic in appearance. INTEGUMENTARY: Warm, dry, and [place]. HEAD: Normocephalic. EYES: without scleral icterus or trauma. ENT/OROPHARYNX: clear and moist. LYMPHADENOPATHY/NECK: Is supple without lymphadenopathy or meningismus. RESPIRATORY: Clear to auscultation bilaterally. No increased work of breathing. CARDIOVASCULAR: Regular rate and rhythm. GI/ABDOMEN: Soft and nontender. No organomegaly or pulsatile mass. EXTREMITIES: Warm and well perfused. BACK: No CVA tenderness. NEUROLOGICAL: Intact without focal deficits. PSYCHIATRIC: normal affect. MUSCULOSKELETAL: Normally developed with good muscle tone. TRIAGE NURSING DOCUMENTATION REVIEWED. Course Administered Medications Discontinued Medications Acetaminophen (Acetaminophen 500 Mg Tab) 500 mg PO NOW STA Stop: 03/30/22 06:31 Last Admin: 03/30/22 06:37 Dose: 500 mg Documented By: CC Cefepime HCl (Maxipime) 2,000 mg in 20 mls @ 5 mls/min IV NOW STA; Protocol Stop: 03/30/22 06:33 Last Admin: 03/30/22 06:38 Dose: 5 mls/min Documented By: CC Sodium Chloride (Nss 1000ml) 1,000 mls @ 999 mls/hr IV .Q1H1M ONE Stop: 03/30/22 07:32 Last Infusion: 03/30/22 07:47 Dose: 0 mls/hr Documented By: Admin: 03/30/22 06:43 Dose: 999 mls/hr Documented By: CC Sodium Chloride (Nss 1000ml) 1,000 mls @ 999 mls/hr IV .Q1H1M ONE Stop: 03/30/22 08:49 Last Admin: 03/30/22 07:54 Dose: 999 mls/hr Documented By: Medical Decision Making Differential Diagnosis The differential was considered includes acute myocardial infarction, acute coronary syndrome, myocarditis, pericarditis, pericardial effusions /tamponad, esophageal perforation, pulmonary embolism, pneumonia, pneumothorax, cardiomyopathy, congestive heart, anemia , COPD/asthma exacerbation. Medical Records Attestation: I reviewed the patient's medical records. Home Medications Current Medication List: was personally reviewed by me Laboratory Data Attestation: I reviewed the patient's lab results. Result diagrams: 03/30/22 05:57 03/30/22 05:57 Lab Results 03/30/22 03/30/22 03/30/22 Range/Units 05:57 05:57 05:57 WBC 12.62 H (4.8-10.8) K/ul RBC 4.64 (3.93-5.22) M/uL Hgb 13.2 (12.0-16.0) g/dl Hct 40.8 (34.1-44.9) % MCV 87.9 (80.0-100.0) fL MCH 28.4 (25.0-34.0) pg MCHC 32.4 (32.0-36.0) g/dL RDW Std Deviation 43.4 (36.4-46.3) fL RDW Coeff of Alfonso 13.5 (11.5-14.5) % Plt Count 186 (130-400) K/uL MPV 11.9 (9.4-12.3) fL Immature Gran % (Auto) 0.7 % Neut % (Auto) 79.4 % Lymph % (Auto) 16.6 % Grady % (Auto) 1.6 % Eos % (Auto) 1.4 % Baso % (Auto) 0.3 % Neut # (Auto) 10.01 H (1.4-6.5) K/uL Lymph # (Auto) 2.10 (1.2-3.4) K/uL Grady # (Auto) 0.20 L (0.24-0.82) K/uL Eos # (Auto) 0.18 (0-0.50) K/uL Baso # (Auto) 0.04 (0-0.2) K/uL Immature Gran # (Auto) 0.09 H (0.00-0.02) K/uL PT 11.1 (9.0-12.0) Seconds INR 1.0 (0.9-1.1) APTT 22.3 (21.0-31.0) Seconds PTT Ratio 0.8 Sodium 138 (136-145) mmol/L Potassium 4.0 (3.5-5.1) mmol/L Chloride 103 (98-107) mmol/L Carbon Dioxide 20 L (21-32) mmol/L Anion Gap 15 H (3-11) BUN 24 H (6-23) mg/dl Creatinine 1.28 H (0.6-1.2) mg/dl Est Cr Clr Drug Dosing Not Reportable Est GFR ( Amer) 50.1 ml/min Est GFR (Non-Af Amer) 43.2 ml/min BUN/Creatinine Ratio 18.8 (10-20) Glucose 245 H (70-99(Fasting)) mg/dl Lactate (0.4-2.0) mmol/L Calcium 8.9 (8.5-10.1) mg/dl Magnesium 1.0 L (1.7-2.4) mg/dl Total Bilirubin 0.7 (0.2-1.0) mg/dl AST 32 (13-39) U/L ALT 30 (7-52) U/L Alkaline Phosphatase 72 (34-104) U/L Troponin I High Sens 20.0 H (0-14) pg/ml Total Protein 7.0 (6.0-8.3) gm/dl Albumin 3.9 (3.4-5.0) gm/dl Globulin 3.1 (2.5-4.0) gm/dl Albumin/Globulin Ratio 1.3 (0.9-2) Urine Color Urine Appearance (Clear) Urine pH (4.5-7.5) Ur Specific [place] (1.000-1.030) Urine Protein (Negative) Urine Glucose (UA) (Negative) Urine Ketones (Negative) Urine Blood (Negative) Urine Nitrite (Negative) Urine Bilirubin (Negative) Urine Urobilinogen (Negative) Ur Leukocyte Esterase (Negative) Urine WBC (Auto) (0-5) /hpf Urine RBC (Auto) (0-4) /hpf U Hyaline Cast (Auto) (0-5) /lpf U Epithel Cells (Auto) (0-5) /lpf Urine Bacteria (Auto) (Negative) Adenovirus (PCR) (NotDetected) B. pertussis DNA (PCR) (NotDetected) B.parapertussis DNA PCR (NotDetected) C. pneumoniae DNA (PCR) (NotDetected) Coronavirus OC43 (PCR) (NotDetected) Coronavirus HKU1 (PCR) (NotDetected) Coronavirus 229E (PCR) (NotDetected) SARS-CoV-2 (PCR) (NotDetected) Coronavirus NL63 (PCR) (NotDetected) Human Metapneumovir PCR (NotDetected) Influenza Type A (PCR) (NotDetected) Influenza Type B (PCR) (NotDetected) M. pneumoniae (PCR) (NotDetected) Parainfluenza 1 (PCR) (NotDetected) Parainfluenza 2 (PCR) (NotDetected) Parainfluenza 3 (PCR) (NotDetected) Parainfluenza 4 (PCR) (NotDetected) RSV (PCR) (NotDetected) Entero/Rhino (PCR) (NotDetected) 03/30/22 03/30/22 03/30/22 Range/Units 06:12 06:46 06:58 WBC (4.8-10.8) K/ul RBC (3.93-5.22) M/uL Hgb (12.0-16.0) g/dl Hct (34.1-44.9) % MCV (80.0-100.0) fL MCH (25.0-34.0) pg MCHC (32.0-36.0) g/dL RDW Std Deviation (36.4-46.3) fL RDW Coeff of Alfonso (11.5-14.5) % Plt Count (130-400) K/uL MPV (9.4-12.3) fL Immature Gran % (Auto) % Neut % (Auto) % Lymph % (Auto) % [place]ady % (Auto) % Eos % (Auto) % Baso % (Auto) % Neut # (Auto) (1.4-6.5) K/uL Lymph # (Auto) (1.2-3.4) K/uL [place] # (Auto) (0.24-0.82) K/uL Eos # (Auto) (0-0.50) K/uL Baso # (Auto) (0-0.2) K/uL Immature Gran # (Auto) (0.00-0.02) K/uL PT (9.0-12.0) Seconds INR (0.9-1.1) APTT (21.0-31.0) Seconds PTT Ratio Sodium (136-145) mmol/L Potassium (3.5-5.1) mmol/L Chloride (98-107) mmol/L Carbon Dioxide (21-32) mmol/L Anion Gap (3-11) BUN (6-23) mg/dl Creatinine (0.6-1.2) mg/dl Est Cr Clr Drug Dosing Est GFR ( Amer) ml/min Est GFR (Non-Af Amer) ml/min BUN/Creatinine Ratio (10-20) Glucose (70-99(Fasting)) mg/dl Lactate 3.7 H* (0.4-2.0) mmol/L Calcium (8.5-10.1) mg/dl Magnesium (1.7-2.4) mg/dl Total Bilirubin (0.2-1.0) mg/dl AST (13-39) U/L ALT (7-52) U/L Alkaline Phosphatase (34-104) U/L Troponin I High Sens (0-14) pg/ml Total Protein (6.0-8.3) gm/dl Albumin (3.4-5.0) gm/dl Globulin (2.5-4.0) gm/dl Albumin/Globulin Ratio (0.9-2) Urine Color Yellow Urine Appearance Cloudy A (Clear) Urine pH 7.0 (4.5-7.5) Ur Specific [place] 1.016 (1.000-1.030) Urine Protein 1+ H (Negative) Urine Glucose (UA) Negative (Negative) Urine Ketones Trace H (Negative) Urine Blood 2+ H (Negative) Urine Nitrite Negative (Negative) Urine Bilirubin Negative (Negative) Urine Urobilinogen Negative (Negative) Ur Leukocyte Esterase 2+ H (Negative) Urine WBC (Auto) >30 H (0-5) /hpf Urine RBC (Auto) 10-30 H (0-4) /hpf U Hyaline Cast (Auto) 10-30 H (0-5) /lpf U Epithel Cells (Auto) >30 H (0-5) /lpf Urine Bacteria (Auto) 4+ H (Negative) Adenovirus (PCR) Not Detected (NotDetected) B. pertussis DNA (PCR) Not Detected (NotDetected) B.parapertussis DNA PCR Not Detected (NotDetected) C. pneumoniae DNA (PCR) Not Detected (NotDetected) Coronavirus OC43 (PCR) Not Detected (NotDetected) Coronavirus HKU1 (PCR) Not Detected (NotDetected) Coronavirus 229E (PCR) Not Detected (NotDetected) SARS-CoV-2 (PCR) DETECTED A* (NotDetected) Coronavirus NL63 (PCR) Not Detected (NotDetected) Human Metapneumovir PCR Not Detected (NotDetected) Influenza Type A (PCR) Not Detected (NotDetected) Influenza Type B (PCR) Not Detected (NotDetected) M. pneumoniae (PCR) Not Detected (NotDetected) Parainfluenza 1 (PCR) Not Detected (NotDetected) Parainfluenza 2 (PCR) Not Detected (NotDetected) Parainfluenza 3 (PCR) Not Detected (NotDetected) Parainfluenza 4 (PCR) Not Detected (NotDetected) RSV (PCR) Not Detected (NotDetected) Entero/Rhino (PCR) Not Detected (NotDetected) Imaging Data Radiologist's Impression: Chest X-Ray 03/30/22 06:30 XR chest 1V portable HISTORY: 66 years-old Female SEPSIS acute sepsis COMPARISON: Chest radiograph 11/19/2020 TECHNIQUE: Portable AP view of the chest FINDINGS: Cardiac silhouette is enlarged. Pulmonary vascular congestion with interstitial coarsening. The patient is mildly rotated towards the left. No pneumothorax, pleural effusion, airspace consolidation or overt pulmonary edema. Degenerative changes of the shoulders and spine. IMPRESSION: Cardiomegaly with pulmonary vascular congestion. ACT 112: Negative or not required by law. The above report was generated using voice recognition software. It may contain grammatical, syntax or spelling errors. Electronically signed by: Kyler Bustamante M.D. 03/30/2022 6:57 AM ECG Data Attestation: I personally reviewed and interpreted this ECG as follows: Additional Comments: Twelve-lead EKG: Per my interpretation shows a sinus tach at a rate of 135 with a right block. No ST elevation. No PVCs. Normal QTC. MDM Narrative 66-year-old female presents to the ED with a chief complaint of recent sore throat and cough that has progressed to shortness of breath. The patient states that her symptoms are worse with ambulation. She also complains of some lightheadedness and had an episode of vomiting here. Patient's lungs are clear on my exam. Initial vital signs showed tachycardia with a heart rate in the 130 range. Respiratory rate was 32. She is febrile with a temperature of 39.1 and had oxygen saturations as low as 90% on room air initially. EKG shows a sinus tach at a rate of 135 with a right bundle branch block. No ischemic changes. Cell count is 12.62. Urinalysis shows some findings suggestive of infection but appears to be contaminated and she does not have any urinary symptoms at this time. Chest x-ray, per radiology shows findings concerning for some congestive heart failure. Clear this is not apparent on exam. The patient's troponin is mildly elevated. COVID test was positive. Lactic acid was elevated. The patient was hydrated with some IV fluids. She was given a total of 2 L IV. The patient was also given an empiric dose of cefepime had some Tylenol for her fever. He will be seen by the hospitalist for further evaluation and care. Impression & Plan COVID-19, Weakness, Acute dyspnea Discharge Plan Visit Data Chief Complaint: Respiratory Problems Stated Complaint: CAN'T BREATH,NAUSEA,FEEL LIKE GOING TO PASS OUT ED Provider: Sergei Jerez Discharge Problem: COVID-19, Weakness, Acute dyspnea Patient Disposition: Being Evaluated by Hospitalist Forms Stand Alone Forms: [facility] [employer] Prescriptions Prescriptions: No Action buspirone 7.5 mg tablet 7.5 mg PO BID PRN (Reason: anxiety) Qty: 20 2RF metformin 500 mg tablet extended release 24 hr 500 mg PO BID Qty: 180 3RF hydrochlorothiazide 12.5 mg capsule 12.5 mg PO DAILY Qty: 90 3RF Label Comments: QAM omeprazole 20 mg capsule,delayed release(DR/EC) 20 mg PO DAILY Qty: 30 11RF Label Comments: QAM lisinopril 10 mg tablet 10 mg PO DAILY Qty: 30 11RF Label Comments: QAM cholecalciferol (vitamin D3) [Vitamin D3] 25 mcg (1,000 unit) tablet 4,000 unit PO QAM acetaminophen 500 mg Tablet 1,000 mg PO Q8 PRN (Reason: pain) Qty: 90 0RF polyethylene glycol 3350 [Miralax] 17 gram/dose powder 17 g PO 2XWK PRN (Reason: Constipation) Referrals Referrals: Rona Frausto CRNP [Primary Care Provider] -
[2022-03-30 07:17] LABS: Alanine Aminotransferase 30 U/L (7-52); Albumin Globulin Ratio 1.3 (0.9-2); Albumin Level 3.9 gm/dl (3.4-5.0); Alkaline Phosphatase 72 U/L (34-104); Anion Gap 15 (3-11); Aspartate Aminotransferase 32 U/L (13-39); BUN Creatinine Ratio 18.8 (10-20); Bilirubin,Total 0.7 mg/dl (0.2-1.0); Blood Urea Nitrogen 24 mg/dl (6-23); Calcium 8.9 mg/dl (8.5-10.1); Carbon Dioxide 20 mmol/L (21-32); Chloride 103 mmol/L (98-107); Est GFR (African American) 50.1 ml/min; Est GFR (Non-African American) 43.2 ml/min; Globulin 3.1 gm/dl (2.5-4.0); Glucose 245 mg/dl (70-99(Fasting)); Sodium 138 mmol/L (136-145)
[2022-03-30 07:21] LABS: Partial Thromboplastin Ratio 0.8; Partial Thromboplastin Time 22.3 Seconds (21.0-31.0); Prothrombin Time 11.1 Seconds (9.0-12.0)
[2022-03-30 08:00] LABS: Adenovirus PCR Not Detected (NotDetected); Bordetella parapertussis PCR Not Detected (NotDetected); Bordetella pertussis PCR Not Detected (NotDetected); Chlamydia pneumoniae PCR Not Detected (NotDetected); Coronavirus 229E PCR Not Detected (NotDetected); Coronavirus HKU1 PCR Not Detected (NotDetected); Coronavirus NL63 PCR Not Detected (NotDetected); Coronavirus OC43PCR Not Detected (NotDetected); Human Metapneumovirus PCR Not Detected (NotDetected); Influenza A PCR Not Detected (NotDetected); Influenza B PCR Not Detected (NotDetected); Mycoplasma pneumoniae PCR Not Detected (NotDetected); Parainfluenza Virus 1 PCR Not Detected (NotDetected); Parainfluenza Virus 2 PCR Not Detected (NotDetected); Parainfluenza Virus 3 PCR Not Detected (NotDetected); Parainfluenza Virus 4 PCR Not Detected (NotDetected); Respiratory Syncytial VirusPCR Not Detected (NotDetected); Rhinovirus/Enterovirus PCR Not Detected (NotDetected)
[2022-03-30 08:08] LABS: Coronavirus CoV-2 (COVID19)PCR DETECTED (NotDetected)
[2022-03-30] MEDS ORDERED: dexAMETHasone 6 MG in SYRINGE 0 ML IV ONE (08:28)
[2022-03-30] MEDS ORDERED: MAGNESIUM SULFATE / D5W 1 GM/100 ML BAG IV SCH (08:29)
--- NOTE | 2022-03-30 08:32 | History & Physical Report ---
Date of Service March 30, 2022 Assessment & Plan (1) Acute respiratory failure with hypoxia: Plan: based on her cxr I believe she has COVID-19 pneumonia. NC O2 to maintain sats >92%. see below. consider checking d-dimer given the severity of her presentation. (2) Pneumonia due to COVID-19 virus: Plan: CXR with "pulmonary vascular congestion" but I believe those findings represent pneumonia. Start dexamethasone. Start Remdesivir. Pulmonary toilet. Flutter valve/mucinex/incentive spirometry. NC O2. Supportive care. Consider checking d-dimer. Airborne isolation. Has extensive wheezing on physical exam at time of admission -- xopenex/atrovent nebs qid. She carries no prior dx of asthma or obstructive lung disease. (3) Sepsis: Plan: Severe. 2nd to COVID-19 and UTI. See above/below. Received >30cc/kg of IV fluids. May need additional boluses. Follow lactates. Follow cultures. (4) UTI (urinary tract infection): Plan: U/a highly suggestive of UTI. Received cefepime in ER. Will continue abx in the form of rocephin. Follow cultures. Patient with numerous UTIs over the last 1-2 years and her record shows h/o kidney stones. Strongly consider CT a/p renal stone protocol. (5) Diabetes mellitus, type 2: Plan: Uncontrolled. Check HbA1C in am. Start lantus. Start novolog SSI. May need insulin infusion - BSGs likely to worsen w/ steroid therapy. Hold metformin. (6) GERD (gastroesophageal reflux disease): Plan: Continue PPI. (7) Hypertension: Plan: BPs low due to severe sepsis. HOLD lisinopril. HOLD HCTZ. (8) Hypothyroidism: Plan: TSH 05/2021 wnl. Cont synthroid. (9) Hypomagnesemia: Plan: Severe. 2nd to HCTZ use. Also she reports having had several days of diarrhea about 2 weeks ago, and then poor appetite for several days following the diarrhea. 3 grams mag sulfate IV now, then repeat mag level later today. (10) Elevated troponin: Plan: Likely myocardial demand ischemia in setting of severe sepsis. No ischemic symptoms. Trend. Telemetry. (11) Morbid obesity with BMI of 45.0-49.9, adult: Plan: BMI 48 (12) DVT prophylaxis: Plan: lovenox 40mg BID Plan updated extensively at bedside History of Present Illness Chief Complaint: cough, fever, shortness of breath Primary Care Provider: DEANNA Sullivan 66yo female with h/o T2DM, morbid obesity, HTN, hyperlipidemia, and hypothyroidism presents with multiple infectious symptoms starting Wednesday including subjective fevers, chills, headache, sore throat, nasal congestion, cough (only slight sputum production), fatigue, myalgias, poor appetite, and dyspnea on exertion. Dyspnea started early this am. reports she can walk only 5-10 feet and the dyspnea starts. She had bilious emesis x 1 in the ER. is sick with similar symptoms although to a lesser degree. COVID testing in the ER is +. She has been vaccinated & boosted. She & her [place] a [place] last [place] but masked the entire visit. She masks in most public places. Upon arrival in the ER she was borderline hypoxic with lowest sats near 90%. Febrile. Allergies Allergy/AdvReac Type Severity Reaction Status Date / Time atorvastatin AdvReac Mild "brain Verified 12/31/21 10:32 fog", "feels weird" ibuprofen AdvReac Mild Gastrointestinal Verified 12/31/21 10:32 Upset rosuvastatin AdvReac Mild Cramping Verified 12/31/21 10:32 of the Muscles Home Medications Medication Instructions Recorded Confirmed Type polyethylene glycol 3350 17 17 g PO 2XWK PRN Constipation 08/03/19 12/31/21 History gram/dose oral powder (Miralax) acetaminophen 500 mg tablet 1,000 mg PO Q8 PRN pain #90 tabs 10/26/19 12/31/21 Rx cholecalciferol (vitamin D3) 25 4,000 unit PO QAM 06/20/20 12/31/21 History mcg (1,000 unit) tablet (Vitamin D3) buspirone 7.5 mg tablet 7.5 mg PO BID PRN anxiety #20 tabs 02/28/21 12/31/21 Rx hydrochlorothiazide 12.5 mg capsule 12.5 mg PO DAILY #90 caps 05/12/21 12/31/21 Rx metformin 500 mg tablet,extended 500 mg PO BID #180 tabs 05/12/21 12/31/21 Rx release 24 hr omeprazole 20 mg capsule,delayed 20 mg PO DAILY #30 caps 08/18/21 12/31/21 Rx release lisinopril 10 mg tablet 10 mg PO DAILY #30 tabs 10/10/21 12/31/21 Rx Past Med/Surg History Medical History Bladder infection Just finished ABX x Diabetes mellitus, type 2 Fatty liver disease, nonalcoholic GERD (gastroesophageal reflux disease) Hiatal hernia History of kidney stones Hypertension Hypothyroidism 2017 mild elevation, had sx, started thyroid med, no difference in sx, now off med, TSH has been monitored and is nl Mixed hyperlipidemia currently not on tx Osteoarthritis Palpitations Reported to PCP 05/2019; EKG showed ST with frequent PVCs, but patient was taking Sudafed at the time, and symptoms resolved when d/c'd. Schatzki's ring of distal esophagus STRETCHED IN PAST SOB (shortness of breath) on exertion Per PCP 06/08 "She did have a stress test in April of 2018 was able to walk for 2 minutes on the treadmill but then had to stop due to dyspnea on exertion and the pharmaceutical detailer felt that was due to poor conditioning because there is no EKG changes." Surgical History Family history of reaction to anesthesia DAUGHTER SLOW TO WAKE UP History of carpal tunnel release of both wrists History of cholecystectomy History of colonoscopy History of cystoscopy History of esophagogastroduodenoscopy (EGD) History of salpingo-oophorectomy Unsure of side History of tooth extraction all upper teeth History of total knee replacement RT History of tubal ligation Family History (Updated 03/30/22 @ 09:45 by Per Peterson) Grandmother (Maternal) Family history of diabetes mellitus Grandfather (Maternal) Family history of diabetes mellitus Father , from acute [place] Myocardial infarction Mother , motor vehicle accident No problems noted. Denies family history of Ovarian cancer Prostate cancer Breast cancer Colorectal cancer Social History (Updated 03/30/22 @ 09:45 by Per Peterson) Smoking Status: Never smoker Second Hand Exposure: No (father smoked); Hx Alcohol Use: No Hx Substance Use: No Preferred Language: Malay Communication Ability: Effective Divemaster Required: No Beliefs That Will Affect Care: None marital status: Current Living Situation: Spouse Current Living Situation Comment: lives in [place] current occupational status: retired How many Children do You have: 2 Other Information That Helps Us Care for You: No Feels Safe at Home: Yes Safety Concerns: Feels Safe At This Time Childhood Exposure to Second-Hand Smoke: Yes caffeine: Yes Dental Care, Regularly: Yes Physical Activity Frequency: 1-2 Times per Week Physical Activity Frequency Comment: Moderate House cleaning/some walking Seatbelt Use: always Sunscreen Use: Yes Assistive Devices: Denture - Upper Review of Systems Review of Systems: gen - fevers, chills, appetite loss, fatigue eyes - no vision changes HENT - nasal congestion with sore throat; no dysphagia CV - no chest pain, no pleuritic pain pulm - cough, wheezing, REYNOLDS with minimal activity GI - bloating, nausea, emesis with bile this am in the ER; no diarrhea - no dysuria, no hematuria musculo - myalgias present neuro - headache present endo - has known diabetes with high BSGs skin - no rash lymph - denies lymph nodes in neck psych - denies depression Physical Exam Physical Exam: gen - looks ill, morbidly obese, occasional confusion, tachypneic and mild increased work of breathing with simply moving around on the bed eyes - PERRL HENT - mouth with slightly dry MM neck - no JVD, no masses heart - irregular, tachy, s1 s2, no murmur lungs - mild fine b/l basilar rales, mild increased work of breathing when moving around, occasional cough, extensive b/l wheezing abd - mildly distended, BS+, NT, no HSM; SHERLYN deferred ext - no edema, pulses 2+ b/l neuro - strength 5/5 x 4 exts; no facial droop psych - mildly confused at times, otherwise able to answer questions lymph - no cervical lymph nodes b/l skin - no rash Results & Data Results & Data ([facility]) Vital Signs (Past 12 Hours) Vital Signs Temp Pulse Pulse Resp BP BP Pulse Ox 03/30/22 07:30 120 H 23 113/59 L 94 03/30/22 07:00 123 H 25 H 115/52 L 93 03/30/22 07:00 93 03/30/22 06:44 128 H 20 128/58 L 93 03/30/22 06:44 128 H 20 93 03/30/22 06:23 129 H 20 138/84 93 03/30/22 06:23 03/30/22 05:56 91 03/30/22 05:42 39.1 C H 134 H 32 H 134/74 93 O2 Del Method O2 Flow Rate 03/30/22 07:30 Room Air 03/30/22 07:00 Room Air 03/30/22 07:00 Room Air 03/30/22 06:44 Nasal Cannula 2 03/30/22 06:44 Nasal Cannula 2 03/30/22 06:23 Nasal Cannula 2 03/30/22 06:23 Nasal Cannula 2 03/30/22 05:56 03/30/22 05:42 Room Air Laboratory Results Laboratory Results - last 24 hr 03/30/22 03/30/22 03/30/22 05:57 05:57 05:57 WBC 12.62 H RBC 4.64 Hgb 13.2 Hct 40.8 MCV 87.9 MCH 28.4 MCHC 32.4 RDW Std Deviation 43.4 RDW Coeff of Alfonso 13.5 Plt Count 186 MPV 11.9 Immature Gran % (Auto) 0.7 Neut % (Auto) 79.4 Lymph % (Auto) 16.6 [place] % (Auto) 1.6 Eos % (Auto) 1.4 Baso % (Auto) 0.3 Neut # (Auto) 10.01 H Lymph # (Auto) 2.10 [place] # (Auto) 0.20 L Eos # (Auto) 0.18 Baso # (Auto) 0.04 Immature Gran # (Auto) 0.09 H PT 11.1 INR 1.0 APTT 22.3 PTT Ratio 0.8 Sodium 138 Potassium 4.0 Chloride 103 Carbon Dioxide 20 L Anion Gap 15 H BUN 24 H Creatinine 1.28 H Est Cr Clr Drug Dosing Not Reportable Est GFR ( Amer) 50.1 Est GFR (Non-Af Amer) 43.2 BUN/Creatinine Ratio 18.8 Glucose 245 H Lactate Calcium 8.9 Magnesium 1.0 L Total Bilirubin 0.7 AST 32 ALT 30 Alkaline Phosphatase 72 Troponin I High Sens 20.0 H C-Reactive Protein Total Protein 7.0 Albumin 3.9 Globulin 3.1 Albumin/Globulin Ratio 1.3 Urine Color Urine Appearance Urine pH Ur Specific [place] Urine Protein Urine Glucose (UA) Urine Ketones Urine Blood Urine Nitrite Urine Bilirubin Urine Urobilinogen Ur Leukocyte Esterase Urine WBC (Auto) Urine RBC (Auto) U Hyaline Cast (Auto) U Epithel Cells (Auto) Urine Bacteria (Auto) Adenovirus (PCR) B. pertussis DNA (PCR) B.parapertussis DNA PCR C. pneumoniae DNA (PCR) Coronavirus OC43 (PCR) Coronavirus HKU1 (PCR) Coronavirus 229E (PCR) SARS-CoV-2 (PCR) Coronavirus NL63 (PCR) Human Metapneumovir PCR Influenza Type A (PCR) Influenza Type B (PCR) M. pneumoniae (PCR) Parainfluenza 1 (PCR) Parainfluenza 2 (PCR) Parainfluenza 3 (PCR) Parainfluenza 4 (PCR) RSV (PCR) Entero/Rhino (PCR) 03/30/22 03/30/22 03/30/22 05:57 06:12 06:46 WBC RBC Hgb Hct MCV MCH MCHC RDW Std Deviation RDW Coeff of Alfonso Plt Count MPV Immature Gran % (Auto) Neut % (Auto) Lymph % (Auto) [place] % (Auto) Eos % (Auto) Baso % (Auto) Neut # (Auto) Lymph # (Auto) [place] # (Auto) Eos # (Auto) Baso # (Auto) Immature Gran # (Auto) PT INR APTT PTT Ratio Sodium Potassium Chloride Carbon Dioxide Anion Gap BUN Creatinine Est Cr Clr Drug Dosing Est GFR ( Amer) Est GFR (Non-Af Amer) BUN/Creatinine Ratio Glucose Lactate 3.7 H* Calcium Magnesium Total Bilirubin AST ALT Alkaline Phosphatase Troponin I High Sens C-Reactive Protein 3.31 H Total Protein Albumin Globulin Albumin/Globulin Ratio Urine Color Yellow Urine Appearance Cloudy A Urine pH 7.0 Ur Specific [place] 1.016 Urine Protein 1+ H Urine Glucose (UA) Negative Urine Ketones Trace H Urine Blood 2+ H Urine Nitrite Negative Urine Bilirubin Negative Urine Urobilinogen Negative Ur Leukocyte Esterase 2+ H Urine WBC (Auto) >30 H Urine RBC (Auto) 10-30 H U Hyaline Cast (Auto) 10-30 H U Epithel Cells (Auto) >30 H Urine Bacteria (Auto) 4+ H Adenovirus (PCR) B. pertussis DNA (PCR) B.parapertussis DNA PCR C. pneumoniae DNA (PCR) Coronavirus OC43 (PCR) Coronavirus HKU1 (PCR) Coronavirus 229E (PCR) SARS-CoV-2 (PCR) Coronavirus NL63 (PCR) Human Metapneumovir PCR Influenza Type A (PCR) Influenza Type B (PCR) M. pneumoniae (PCR) Parainfluenza 1 (PCR) Parainfluenza 2 (PCR) Parainfluenza 3 (PCR) Parainfluenza 4 (PCR) RSV (PCR) Entero/Rhino (PCR) 03/30/22 03/30/22 06:58 08:46 WBC RBC Hgb Hct MCV MCH MCHC RDW Std Deviation RDW Coeff of Alfonso Plt Count MPV Immature Gran % (Auto) Neut % (Auto) Lymph % (Auto) [place] % (Auto) Eos % (Auto) Baso % (Auto) Neut # (Auto) Lymph # (Auto) [place] # (Auto) Eos # (Auto) Baso # (Auto) Immature Gran # (Auto) PT INR APTT PTT Ratio Sodium Potassium Chloride Carbon Dioxide Anion Gap BUN Creatinine Est Cr Clr Drug Dosing Est GFR ( Amer) Est GFR (Non-Af Amer) BUN/Creatinine Ratio Glucose Lactate 2.8 H* Calcium Magnesium Total Bilirubin AST ALT Alkaline Phosphatase Troponin I High Sens C-Reactive Protein Total Protein Albumin Globulin Albumin/Globulin Ratio Urine Color Urine Appearance Urine pH Ur Specific [place] Urine Protein Urine Glucose (UA) Urine Ketones Urine Blood Urine Nitrite Urine Bilirubin Urine Urobilinogen Ur Leukocyte Esterase Urine WBC (Auto) Urine RBC (Auto) U Hyaline Cast (Auto) U Epithel Cells (Auto) Urine Bacteria (Auto) Adenovirus (PCR) Not Detected B. pertussis DNA (PCR) Not Detected B.parapertussis DNA PCR Not Detected C. pneumoniae DNA (PCR) Not Detected Coronavirus OC43 (PCR) Not Detected Coronavirus HKU1 (PCR) Not Detected Coronavirus 229E (PCR) Not Detected SARS-CoV-2 (PCR) DETECTED A* Coronavirus NL63 (PCR) Not Detected Human Metapneumovir PCR Not Detected Influenza Type A (PCR) Not Detected Influenza Type B (PCR) Not Detected M. pneumoniae (PCR) Not Detected Parainfluenza 1 (PCR) Not Detected Parainfluenza 2 (PCR) Not Detected Parainfluenza 3 (PCR) Not Detected Parainfluenza 4 (PCR) Not Detected RSV (PCR) Not Detected Entero/Rhino (PCR) Not Detected Diagnostic Findings Chest X-Ray 03/30/22 06:30 XR chest 1V portable HISTORY: 66 years-old Female SEPSIS acute sepsis COMPARISON: Chest radiograph 11/19/2020 TECHNIQUE: Portable AP view of the chest FINDINGS: Cardiac silhouette is enlarged. Pulmonary vascular congestion with interstitial coarsening. The patient is mildly rotated towards the left. No pneumothorax, pleural effusion, airspace consolidation or overt pulmonary edema. Degenerative changes of the shoulders and spine. IMPRESSION: Cardiomegaly with pulmonary vascular congestion. ACT 112: Negative or not required by law. The above report was generated using voice recognition software. It may contain grammatical, syntax or spelling errors. Electronically signed by: Kyler Bustamante M.D. 03/30/2022 6:57 AM EKG - my reading - sinus tachycardia, PVCs, RBBB, LAFB, no ST changes Code Status & VTE Plan Code Status full code Critical Care Time Critical Care Time: Yes Total Critical Care Time: 60 PG Care Time/CCT Total # of Minutes Spent Total Time Spent with Patient: Total time spent is greater than 50% in coordination of care (as documented) at patient's floor/unit and/or counseling patient: Critical Care Time: Yes Total Critical Care Time: 60 patient with multi-organ dysfunction in the setting of severe sepsis Coding Level of Care Code None Diagnoses Acute respiratory failure with hypoxia J96.01 Pneumonia due to COVID-19 virus U07.1; J12.82 Sepsis A41.9 UTI (urinary tract infection) N39.0 Diabetes mellitus, type 2 E11.9 GERD (gastroesophageal reflux disease) K21.9 Hypertension I10 Hypothyroidism E03.9 Hypomagnesemia E83.42 Elevated troponin R77.8 Morbid obesity with BMI of 45.0-49.9, adult E66.01; Z68.42 DVT prophylaxis Z29.9 Additional Codes Critical Care Time - Critical Care Time: Yes ([id number])
[2022-03-30] MEDS ORDERED: MAGNESIUM SULFATE / D5W 1 GM/100 ML BAG IV STA (08:43)
[2022-03-30] MEDS ORDERED: REMDESIVIR 200 MG in SODIUM CHLORIDE 0.9% 210 ML IV STA (08:48)
[2022-03-30] MEDS ORDERED: XOPENEX/ATROVENT 1.25mg/0.5MG NEB COMBO NEB STA (09:30)
[2022-03-30] MEDS ORDERED: IPRATROPIUM BROMIDE NEB SOLN 0.02% 2.5 ML VIAL INH STA (09:51)
[2022-03-30] MEDS ORDERED: LEVALBUTEROL 1.25MG/0.5ML NEB INH STA (09:52)
--- NOTE | 2022-03-30 10:47 | XRay Report ---
XR KUB/Abdomen 1 view CLINICAL HISTORY: bilious emesis; eval ileus, SBO, etc TECHNIQUE: 1 view of the abdomen was obtained. Comparison: Comparison is made to lumbar spine radiograph 07/27/2010 FINDINGS: Cholecystomy clips are seen in the right upper quadrant. The osseous structures are grossly unremarka ble. The bowel gas pattern is nonobstructive. A moderate amount of stool is noted within the large john wel. IMPRESSION: Nonobstructive bowel gas pattern. ACT 112: Negative or not required by law. Electronically signed by: Trevin Vera M.D. 03/30/2022 10:46 AM
[2022-03-30] MEDS: MAGNESIUM SULFATE / D5W 1 GM/100 ML BAG IV SCH ×2 (10:55→11:51)
[2022-03-30] MEDS ORDERED: LACTATED RINGER'S 500 ML IV ONE (11:40)
[2022-03-30] MEDS ORDERED: KETOROLAC 30 MG/ML VIAL IV ONE (11:40)
[2022-03-30] MEDS ORDERED: ACETAMINOPHEN 500 MG TAB PO PRN (12:51)
[2022-03-30] MEDS ORDERED: NITROGLYCERIN SL 0.4 MG/TAB TAB SL PRN (12:51)
[2022-03-30] MEDS ORDERED: ONDANSETRON INJ 2 MG/ML 2 ML VIAL IV PRN (12:51)
[2022-03-30] MEDS ORDERED: busPIRone 7.5 MG TAB PO PRN (12:51)
[2022-03-30] MEDS ORDERED: BENZONATATE 100 MG CAPSULE PO PRN (12:51)
[2022-03-30] MEDS ORDERED: PANTOprazole 40 MG TAB PO STA (12:51)
[2022-03-30] MEDS ORDERED: ENOXAPARIN INJ 40 MG/0.4 ML SYR SQ SCH (13:00)
[2022-03-30] MEDS ORDERED: CARBOHYDRATES FOR HYPOGLYCEMIA PO PRN (13:15)
[2022-03-30] MEDS ORDERED: GLUCOSE 40% GEL 15 GM TUBE PO PRN (13:15)
[2022-03-30] MEDS ORDERED: GLUCOSE 10 TAB/TUBE PO PRN (13:15)
[2022-03-30] MEDS ORDERED: DEXTROSE 50% 50 ML SYRINGE IV PRN (13:15)
[2022-03-30] MEDS ORDERED: GLUCAGON FOR INJ 1 MG VIAL IM PRN (13:15)
[2022-03-30] MEDS: guaiFENesin 600 MG TABCR PO SCH ×2 (13:35→20:14)
[2022-03-30] MEDS ORDERED: XOPENEX/ATROVENT 1.25mg/0.5MG NEB COMBO NEB SCH (14:00)
[2022-03-30] MEDS: IPRATROPIUM BROMIDE NEB SOLN 0.02% 2.5 ML VIAL INH SCH ×2 (14:23→20:06)
[2022-03-30] MEDS: LEVALBUTEROL 1.25MG/0.5ML NEB INH SCH ×2 (14:24→20:06)
[2022-03-30] MEDS: LANTUS PER UNIT CHARGE SQ SCH ×2 (14:41→20:23)
[2022-03-30] MEDS: INSULIN ASPART PER UNIT SC SCH ×4 (15:05→23:55)
[2022-03-30 16:03] LABS: D Dimer 31290 ug/L FEU (0-500)
[2022-03-30] MEDS ORDERED: STAT IV Infusion **Titration per Protocol STA (16:59)
[2022-03-30] MEDS ORDERED: PHARMACY GLYCEMIC MGMT CONSULT PRN (16:59)
[2022-03-30] MEDS ORDERED: DKA GOAL RANGE 150-250 mg/dl ONE (16:59)
[2022-03-30] MEDS ORDERED: INSULIN PROTOCOL GOAL RANGE ONE (16:59)
[2022-03-30] MEDS ORDERED: DC ALL PREVIOUSLY ORDERED DIABETES MEDS ONE (16:59)
[2022-03-30] MEDS ORDERED: SEVERE STRESS LEVEL ONE (16:59)
[2022-03-30] MEDS ORDERED: INSULIN REGULAR 250 UNITS in SODIUM CHLORIDE 0.9% 247.5 ML IV SCH (17:00)
[2022-03-30] MEDS ORDERED: INSULIN HUMAN REGULAR IV BOLUS 10 UNITS in SYRINGE 0 ML IV ONE (17:30)
[2022-03-30 18:05] LABS: BUN Creatinine Ratio 18.7 (10-20); Calcium 8.2 mg/dl (8.5-10.1); Creatinine Clr Calc Pharmacy 41.8 ml/min; Est GFR (African American) 41.4 ml/min; Est GFR (Non-African American) 35.7 ml/min; Magnesium 1.9 mg/dl (1.7-2.4); Potassium 4.3 mmol/L (3.5-5.1)
[2022-03-30] MEDS ORDERED: OPTIRAY 320 125ml IV ONE (18:31)
--- NOTE | 2022-03-30 18:49 | CT Scan Report ---
CT angio chest PE protocol CLINICAL HISTORY: covid infection, sepsis, very high d-dimer, eval PE COMPARISON STUDY: Portable chest from 03/30/2022 CT DOSE: TECHNIQUE: CT Angio of the chest was performed.followed by image post processing with coronal, and s agittal MIP reformats. Contrast Volume: Optiray 320, 117 ml FINDINGS: Vasculature: Intraluminal filling defects are present within the right lower lobe, right middle lobe and right upper lobe pulmonary arteries representing the presence of pulmonary emboli. No left-sided pulmonary emboli are present. Airway: The airway is clear. No endobronchial lesion is identified. Lungs: The lungs are clear of acute alveolar opacities, air bronchograms or pulmonary nodules. No jacob undglass opacities or vascular congestion are identified. Pleura: There is no evidence for pleural effusion. There is no evidence for pneumothorax. Mediastinum: There is no evidence for pathologic adenopathy. There is no definite CT evidence for rig ht heart strain The heart size is within normal limits. The thoracic aorta is within normal limits. T here is no evidence for pericardial effusion. Upper abdomen: The adrenal glands are normal bilaterally. There is a small hiatal hernia. Osseous structures: There is no acute osseous pathology. Impression: 1. Positive CTA for right upper, right middle and right lower lobe pulmonary emboli. 2. No evidence for right heart strain. 3. Otherwise, no acute chest disease with no evidence for groundglass opacities or vascular congestio n. 4. Small hiatal hernia. ACT 112: Negative or not required by law. Electronically signed by: Paul Beckman M.D. 03/30/2022 6:46 PM
[2022-03-30] MEDS ORDERED: LEVALBUTEROL 1.25MG/0.5ML NEB INH SCH (19:00)
[2022-03-30] MEDS ORDERED: IPRATROPIUM BROMIDE NEB SOLN 0.02% 2.5 ML VIAL INH SCH (19:00)
[2022-03-30] MEDS ORDERED: Heparin IV Adult Wt-Based Standard WITH Bolus Protocol IV SCH (19:15)
[2022-03-30] MEDS ORDERED: HEPARIN SOD (PORCINE) 1000 UNIT/ML IV ONE (19:30)
[2022-03-30] MEDS: HEPARIN SODIUM/DEXTROSE 25,000 UNITS/500 ML BAG IV SCH (19:40)
--- NOTE | 2022-03-30 19:59 | CT Scan Report ---
CT abd pelvis wo con CLINICAL HISTORY: recurrent UTIs, sepsis, eval for obstructing stone COMPARISON STUDY: No previous studies for comparison. CT DOSE: 2317.64 mGy.cm TECHNIQUE: Standard CT of the Abdomen and Pelvis was performed without IV contrast. The patient did not receive oral contrast. A dose lowering technique was utilized adhering to the principles of RENETTA May[place] FINDINGS: Abdominal cavity: There is no evidence for abdominal mass, adenopathy or ascites. Liver: The liver is homogeneous in attenuation on these limited noncontrast images.. Spleen: The spleen is homogeneous in attenuation on these limited noncontrast images. Pancreas: The pancreas is homogeneous in attenuation on these limited noncontrast images. Gall Bladder: Surgical clips are present. Adrenal glands: The adrenal glands are normal in size and attenuation on these limited noncontrast im ages. Kidneys: The kidneys are homogeneous in attenuation on these limited noncontrast images. There is a 5 mm nonobstructing right lower pole renal calculus. However, there is evidence for mild hydronephrosi s and hydroureter with 2, 3 to 4 mm distal right ureteral calculi present at the right UVJ. There is no evidence for left renal calculus or hydronephrosis. There is suspicion of a cyst involving the low er pole of the left kidney on these limited noncontrast images. Bowel: There is a small hiatal hernia. The bowel loops are normally placed within the abdomen and pel vis without evidence for dilatation or obstruction. There is no evidence for mass lesion. There is mi ld fecal stasis of the rectosigmoid colon without evidence for impaction There are no inflammatory ch anges present. There is no evidence for free air. There is a normal appendix in the right lower quadr ant. Bladder: There is no evidence for focal bladder wall thickening, calculus or diverticulum. There is a ir present within the bladder suggesting previous internal instrumentation. Clinical correlation is n ecessary. : There is no evidence for pelvic mass or adenopathy. Vasculature: There is no evidence for focal aneurysmal dilatation of the abdominal aorta. Atheroscler otic calcification is present. Osseous structures: There is no acute osseous pathology. Degenerative changes are seen within the spi ne. IMPRESSION: 1. 2 obstructing distal right ureteral calculi are present at the right UVJ. 2. Nonobstructing right renal calculus is also present. 3. Mild fecal stasis without impaction or obstruction. 4. Air within the bladder. Clinical correlation is necessary. 5. Additional nonacute findings are delineated above. ACT 112: Negative or not required by law. Electronically signed by: Paul Beckman M.D. 03/30/2022 7:57 PM
[2022-03-30] MEDS: HYDROCORTISONE HC 2.5% CRM 30GM TUBE EXT SCH (20:15)
[2022-03-30] MEDS ORDERED: LACTATED RINGER'S 1,000 ML IV SCH (20:30)
[2022-03-30] MEDS ORDERED: INSULIN ASPART PER UNIT SC SCH (21:00)
[2022-03-30 21:12] LABS: BUN Creatinine Ratio 18.3 (10-20); Calcium 8.2 mg/dl (8.5-10.1); Est GFR (African American) 40.4 ml/min; Est GFR (Non-African American) 34.8 ml/min; Potassium 3.9 mmol/L (3.5-5.1)
[2022-03-30] MEDS: cefTRIAXone SODIUM 2,000 MG in DEXTROSE 5% 50 ML IV SCH (21:13)
[2022-03-30 21:18] LABS: Troponin I High Sensitivity 617.1 pg/ml (0-14)
[2022-03-31 03:00] LABS: BUN Creatinine Ratio 22.3 (10-20); C Reactive Protein 12.25 mg/dl (0-0.5); Calcium 7.8 mg/dl (8.5-10.1); Creatinine Clr Calc Pharmacy 48.3 ml/min; Est GFR (African American) 49.2 ml/min; Est GFR (Non-African American) 42.4 ml/min; Magnesium 1.9 mg/dl (1.7-2.4); Potassium 4.2 mmol/L (3.5-5.1)
[2022-03-31 03:01] LABS: Basophils # (auto) 0.02 K/uL (0-0.2); Basophils % (auto) 0.1 %; Hematocrit (blood only) 31.7 % (34.1-44.9); Hemoglobin 10.4 g/dl (12.0-16.0); Immature Granulocytes % (auto) 0.6 %; Lymphocytes # (auto) 1.03 K/uL (1.2-3.4); Lymphocytes % (auto) 6.4 %; Mean Corpuscular Hgb Conc 32.8 g/dL (32.0-36.0); Mean Corpuscular Volume 88.3 fL (80.0-100.0); Mean Platelet Volume 11.7 fL (9.4-12.3); Monocytes # (auto) 0.84 K/uL (0.24-0.82); Monocytes % (auto) 5.3 %; Neutrophils # (auto) 13.99 K/uL (1.4-6.5); Neutrophils % (auto) 87.6 %; Platelet Count 148 K/uL (130-400); RBC Morphology Unremarkable; RDW Coefficient of Variation 13.7 % (11.5-14.5); RDW Standard Deviation 44.5 fL (36.4-46.3); Red Blood Count 3.59 M/uL (3.93-5.22); White Blood Count 15.98 K/ul (4.8-10.8)
[2022-03-31 03:06] LABS: Partial Thromboplastin Ratio 3.5
[2022-03-31 03:08] LABS: Partial Thromboplastin Time 97.3 Seconds (21.0-31.0)
[2022-03-31 03:10] LABS: Troponin I High Sensitivity 477.8 pg/ml (0-14)
[2022-03-31] MEDS: INSULIN ASPART PER UNIT SC SCH ×5 (04:23→20:16)
[2022-03-31 07:16] LABS: Estimated Average Glucose 126 mg/dl
[2022-03-31] MEDS: IPRATROPIUM BROMIDE NEB SOLN 0.02% 2.5 ML VIAL INH SCH (07:21)
[2022-03-31] MEDS: LEVALBUTEROL 1.25MG/0.5ML NEB INH SCH (07:21)
[2022-03-31] MEDS: LANTUS PER UNIT CHARGE SQ SCH ×2 (08:15→21:56)
[2022-03-31] MEDS: dexAMETHasone 6 MG in SYRINGE 0 ML IV SCH (08:24)
[2022-03-31] MEDS: guaiFENesin 600 MG TABCR PO SCH ×2 (08:25→20:13)
[2022-03-31] MEDS: HYDROCORTISONE HC 2.5% CRM 30GM TUBE EXT SCH ×3 (08:25→20:16)
[2022-03-31] MEDS: CHOLECALCIFEROL 1,000 UNITS 25 MCG TAB PO SCH (08:25)
[2022-03-31] MEDS: PANTOprazole 40 MG TAB PO SCH (08:25)
--- NOTE | 2022-03-31 08:34 | Urology Consultation ---
Date of Consultation March 31, 2022 Assessment & Plan (1) Sepsis: (2) UTI (urinary tract infection): (3) Ureteral stone: (4) COVID-19: Plan 66yo F admitted with sepsis d/t Covid-19 pneumonia and UTI. - Plan of care and imaging reviewed with Dr. Krishnan. - CTAP -2 obstructing distal right ureteral calculi present at the right UVJ. - Per patient/nursing note- x3 stones passed and collected in urine strainer this AM. Can send for analysis. - Currently asymptomatic from standpoint. - Pt afebrile and hemodynamically stable. - Labs reviewed - WBC 15.98, Creatinine 1.30. - Urine culture with gram negative bacilli; Blood cultures preliminary no growth x 24 hours. - Voiding spontaneously, continue to monitor. Bladder scan prn. - No acute intervention warranted at this time. - Continue supportive care. - Continue antibiotic therapy and tailor as culture data becomes available. - Will arrange outpatient follow-up with our service. - Urology will sign-off at this time. Please contact us with any further questions, concerns, or changes in patient status. History of Present Illness Reason for Consultation: ureteral stone, UTI Attending Physician: Vida Muhammad MD History of Present Illness 66yo female with h/o T2DM, morbid obesity, HTN, hyperlipidemia, and hypothyroidism admitted with sepsis, acute respiratory failure with hypoxia, and pneumonia due to COVID-19. On arrival she was borderline hypoxic. Febrile. Labs revealed a white count of 12.62 and creatinine of 1.28. The patient's troponin was mildly elevated. COVID test was positive. Lactic acid was elevated.D-dimer returned >30,000. Urinalysis with 2+ blood, 4+bacteria, 2+LE, negative nitrite. Urine and blood cultures pending. CTA chest returned with PEs right lung, patient started on heparin drip. A CT a/p was obtained due to sepsis and UA highly suspicious of UTI and was notable for 2 obstructing distal right ureteral calculi present at the right UVJ. Per chart review, patient was felt to be a poor candidate for urological intervention in light of COVID, PEs, heparin drip. Additional IV fluid was given with the straining of all urine in hopes that she would pass the stone spontaneously. It was also noted that her BPs were too low for Flomax therapy. Urology consulted this morning for ureteral stones, UTI. Patient examined at bedside this AM. Awake, sitting at bedside on arrival. No acute distress. Denies abdominal, flank, back pain. States she passed 2 stones earlier this morning and another stone just a few minutes prior to my arrival. Stone still in strainer. Voiding without issue. Feels she is emptying her bladder well. Denies hematuria or dysuria. Denies fevers or chills. Denies nausea vomiting. Reports a history of stones in the past with spontaneous passage. Follows with Dr. Sarabia. Family history noncontributory. CT abdomen pelvis IMPRESSION: 1. 2 obstructing distal right ureteral calculi are present at the right UVJ. 2. Nonobstructing right renal calculus is also present. 3. Mild fecal stasis without impaction or obstruction. 4. Air within the bladder. Clinical correlation is necessary. 5. Additional nonacute findings are delineated above. Allergies Allergy/AdvReac Type Severity Reaction Status Date / Time atorvastatin AdvReac Mild "brain Verified 12/31/21 10:32 fog", "feels weird" ibuprofen AdvReac Mild Gastrointestinal Verified 12/31/21 10:32 Upset rosuvastatin AdvReac Mild Cramping Verified 12/31/21 10:32 of the Muscles Home Medications Medication Instructions Recorded Confirmed Type polyethylene glycol 3350 17 17 g PO 2XWK PRN Constipation 08/03/19 12/31/21 History gram/dose oral powder (Miralax) acetaminophen 500 mg tablet 1,000 mg PO Q8 PRN pain #90 tabs 10/26/19 12/31/21 Rx cholecalciferol (vitamin D3) 25 4,000 unit PO QAM 06/20/20 12/31/21 History mcg (1,000 unit) tablet (Vitamin D3) buspirone 7.5 mg tablet 7.5 mg PO BID PRN anxiety #20 tabs 02/28/21 12/31/21 Rx hydrochlorothiazide 12.5 mg capsule 12.5 mg PO DAILY #90 caps 05/12/21 12/31/21 Rx metformin 500 mg tablet,extended 500 mg PO BID #180 tabs 05/12/21 12/31/21 Rx release 24 hr omeprazole 20 mg capsule,delayed 20 mg PO DAILY #30 caps 08/18/21 12/31/21 Rx release lisinopril 10 mg tablet 10 mg PO DAILY #30 tabs 10/10/21 12/31/21 Rx Patient History Medical History Bladder infection Just finished ABX x Diabetes mellitus, type 2 Fatty liver disease, nonalcoholic GERD (gastroesophageal reflux disease) Hiatal hernia History of kidney stones Hypertension Hypothyroidism 2017 mild elevation, had sx, started thyroid med, no difference in sx, now off med, TSH has been monitored and is nl Mixed hyperlipidemia currently not on tx Osteoarthritis Palpitations Reported to PCP 05/2019; EKG showed ST with frequent PVCs, but patient was taking Sudafed at the time, and symptoms resolved when d/c'd. Schatzki's ring of distal esophagus STRETCHED IN PAST SOB (shortness of breath) on exertion Per PCP 06/08 "She did have a stress test in April of 2018 was able to walk for 2 minutes on the treadmill but then had to stop due to dyspnea on exertion and the labor arbitrator hearing office felt that was due to poor conditioning because there is no EKG changes." Surgical History Family history of reaction to anesthesia DAUGHTER SLOW TO WAKE UP History of carpal tunnel release of both wrists History of cholecystectomy History of colonoscopy History of cystoscopy History of esophagogastroduodenoscopy (EGD) History of salpingo-oophorectomy Unsure of side History of tooth extraction all upper teeth History of total knee replacement RT History of tubal ligation Family History Grandmother (Maternal) Family history of diabetes mellitus Grandfather (Maternal) Family history of diabetes mellitus Father , from acute [place] Myocardial infarction Mother , motor vehicle accident No problems noted. 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 Beliefs That Will Affect Care: None marital status: Current Living Situation: Spouse Current Living Situation Comment: lives in [place] current occupational status: retired How many Children do You have: 2 Other Information That Helps Us Care for You: No Feels Safe at Home: Yes Safety Concerns: Feels Safe At This Time Childhood Exposure to Second-Hand Smoke: Yes caffeine: Yes Dental Care, Regularly: Yes Physical Activity Frequency: 1-2 Times per Week Physical Activity Frequency Comment: Moderate House cleaning/some walking Seatbelt Use: always Sunscreen Use: Yes Assistive Devices: None Review of Systems Review of Systems: All systems reviewed & are unremarkable except as noted in HPI & below Physical Exam Constitutional: + obese; no acute distress Neck: normal visual inspection Respiratory: O2 via NC Gastrointestinal (Abdomen): Inspection/Auscultation: abdomen normal to inspection Musculoskeletal: Head/Neck/Chest: normocephalic Skin: No visible rashes or lesions to exposed skin areas Neurologic: awake Psychiatric: Orientation: alert, oriented x 3 and cooperative Results & Data ([place]) Vital Signs (Past 12 Hours) Vital Signs Temp Pulse Pulse Resp BP Pulse Ox O2 Del Method 03/31/22 07:42 36.5 C 76 22 106/70 95 Nasal Cannula 03/31/22 07:23 75 14 99 Nasal Cannula 03/31/22 02:38 36.5 C 86 20 123/70 95 Nasal Cannula 03/30/22 23:46 36.5 C 62 18 111/69 90 Room Air 03/30/22 23:27 81 O2 Flow Rate 03/31/22 07:42 1 03/31/22 07:23 2 03/31/22 02:38 1 03/30/22 23:46 03/30/22 23:27 PG Care Time/CCT Total # of Minutes Spent Total Time Spent with Patient: Total time spent is greater than 50% in coordination of care (as documented) at patient's floor/unit and/or counseling patient: Coding Level of Care Code 19743 Initial Inpt Care Lvl 2 Diagnoses Sepsis A41.9 UTI (urinary tract infection) N39.0 Ureteral stone N20.1 COVID-19 U07.1
[2022-03-31] MEDS ORDERED: LEVALBUTEROL 1.25MG/0.5ML NEB INH PRN (10:07)
[2022-03-31] MEDS ORDERED: IPRATROPIUM BROMIDE NEB SOLN 0.02% 2.5 ML VIAL INH PRN (10:08)
[2022-03-31 10:48] LABS: Partial Thromboplastin Ratio 2.4
--- NOTE | 2022-03-31 11:07 | Pharmacy Report ---
Pharmacy Glycemic Short Note 2 - Date of Service March 31, 2022 - Glycemic Short BSG Results (Last 24 hours): 03/30/22 03/30/22 03/30/22 13:24 13:25 14:50 Glucose 283 H POC Glucose 294 H 291 H 03/30/22 03/30/22 03/30/22 16:35 16:36 20:17 Glucose POC Glucose 315 H* 319 H* 237 H 03/30/22 03/30/22 03/31/22 20:45 23:44 02:29 Glucose 211 H 147 H POC Glucose 167 H 03/31/22 03/31/22 04:12 07:49 Glucose POC Glucose 161 H 138 H OUTPATIENT ANTIDIABETIC REGIMEN: * Metformin * HbA1c 6.0% on 03/31/22 ASSESSMENT: * 66 yo F with well-controlled T2DM on a single oral agent admitted with COVID, PE, and obstructing kidney stones * NPO this AM for potential urological intervention, but patient now passed stones and per urology, no plan for surgery today. Anticipate diet to be resumed * Steroids for COVID continue * AM fasting BSG wnl - low dose Lantus appropriate for now * Novolog currently weight-based estimate between moderate to severe stress - OK for now PLAN FOR INPATIENT GLYCEMIC CONTROL: * Hold outpatient oral diabetes medications * Basal insulin * Lantus 15 units SQ BID * Bolus insulin * NovoLog per scale ACHS or Q6hrs while NPO * Goal Range: Low 110 mg/dL - High 140 mg/dL * Correction Factor: 20 mg/dL/unit * Nutritional / Prandial insulin per carb ratio of 1 unit per 6 grams CHO consumed
[2022-03-31] MEDS: REMDESIVIR 100 MG in SODIUM CHLORIDE 0.9% 230 ML IV SCH (13:37)
[2022-03-31] MEDS: HEPARIN SODIUM/DEXTROSE 25,000 UNITS/500 ML BAG IV SCH (14:52)
[2022-03-31] MEDS: cefTRIAXone SODIUM 2,000 MG in DEXTROSE 5% 50 ML IV SCH (20:15)
--- NOTE | 2022-03-31 20:28 | Hospitalist Progress Note ---
Date of Service March 31, 2022 Assessment & Plan (1) Acute respiratory failure with hypoxia: Plan: Secondary to combination of COVID-19 pneumonia and acute PEs Was on 2LNC O2 but now weaned to room air D-dimer 30k and CTA chest subsequently showed multiple right sided PEs Troponin elevated, with sinus tach on ECG -continue O2 as needed to keep POx>90% continue treatment of COVID with decadron, Remdesevir, pulm toilet -check ECHO in AM (2) Pulmonary emboli: Plan: multiple right sided as above continue heparin gtt for now and ron check Xarelto and start Xarelto tomorrow if affordable recommend 6 months of therapy etiology most likely COVID, obesity, sedentary, multiple long car rides to visit daughter 3-4 times per month she is UTD on all cancer screenings (3) Pneumonia due to COVID-19 virus: Plan: CXR with "pulmonary vascular congestion" but I believe those findings represent pneumonia. -continue dexamethasone, Remdesivir as above Pulmonary toilet. Flutter valve/mucinex/incentive spirometry. NC O2. Supportive care. Airborne isolation. Has extensive wheezing on physical exam at time of admission -- xopenex/atrovent nebs qid and now improved/resolved She carries no prior dx of asthma or obstructive lung disease. follow CXR to resolution as outpt (4) Sepsis: Plan: Severe. 2nd to COVID-19 and UTI. with lactic acidosis received IVFs BPs normal, tachycardia resolved Follow Blood nad Urine cultures-so far with GNR in urine (5) UTI (urinary tract infection): Plan: U/a suggestive of UTI. Received cefepime in ER and then continued on rocephin after admission Follow cultures. Patient with numerous UTIs over the last 1-2 years and her record shows h/o kidney stones. CT abd/pel ordered which showed 2 obstructing ureteral stones on right--> fortunately passed on their own in strainer on 03/31 Appreciate Urology consultation-no intervention needed due to passing stones spontaneously (6) Diabetes mellitus, type 2: Plan: HbA1C 6.0% continue lantus. and novolog SSI. appreciate Pharmacy glycemic consult Hold metformin. (7) GERD (gastroesophageal reflux disease): Plan: Continue PPI. (8) Hypertension: Plan: BPs low due to severe sepsis.Now resolved continue to HOLD lisinopril. HOLD HCTZ. (9) Hypothyroidism: Plan: TSH 05/2021 wnl. Cont synthroid. (10) Hypomagnesemia: Plan: Severe at 1.0 on admission 2nd to HCTZ use. Also she reports having had several days of diarrhea about 2 weeks ago, and then poor appetite for several days following the diarrhea. 3 grams mag sulfate IV given on admission and now normal (11) Elevated troponin: Plan: Likely myocardial demand ischemia in setting of severe sepsis and also could be from PEs No ischemic symptoms. ECG without ischemia check ECHO (12) Morbid obesity with BMI of 45.0-49.9, adult: Plan: BMI 48 (13) DVT prophylaxis: Plan: now on heparin gtt for PEs (14) Ureteral stone: Plan: as above Plan Dispo-continued stay on tele Admission and Anticipated Discharge Date Admission Date: March 30, 2022 Subjective Pt feeling better overall. Is now weaned off O2. SHe passed 2-3 kidney stones this AM inthe strainer. No bleeding from anywhere. No calf or leg pain. Tele with NSR, PACs, PVCs Review of Systems Review of Systems: All systems reviewed & are unremarkable except as noted in HPI & below Physical Exam Constitutional: WD/WN, vitals as above Eyes: + anicteric sclerae Neck: trachea midline, no thyromegaly Respiratory: normal respiratory effort, lungs clear to auscultation Cardiovascular: RRR, no murmur, no edema Chest (Breasts): Chest: normal inspection of chest Gastrointestinal (Abdomen): normal bowel sounds, soft, nontender, no hepatosplenomegaly Musculoskeletal: Extremities: extremities normal to inspection; no cyanosis and no clubbing Skin: no rashes, warm and dry Neurologic: moves all extremities and awake; no focal motor deficits Psychiatric: A+Ox3, euthymic affect Lymphatic: no lymphedema Results & Data Results & Data ([facility]) Vital Signs (Past 12 Hours) Vital Signs Temp Pulse Pulse Resp BP Pulse Ox Pulse Ox 03/31/22 20:01 36.8 C 67 18 124/65 95 03/31/22 14:30 66 03/31/22 12:51 94 03/31/22 16:59 36.7 C 52 L 14 109/70 94 03/31/22 11:30 36.8 C 69 20 91/55 L 96 03/31/22 08:35 O2 Del Method O2 Del Method O2 Flow Rate 03/31/22 20:01 Room Air 03/31/22 14:30 03/31/22 12:51 Room Air 03/31/22 16:59 Room Air 03/31/22 11:30 Nasal Cannula 1 03/31/22 08:35 Nasal Cannula 2 Laboratory Results 03/31/22 03/31/22 03/31/22 Range/Units 20:09 16:58 11:32 WBC (4.8-10.8) K/ul RBC (3.93-5.22) M/uL Hgb (12.0-16.0) g/dl Hct (34.1-44.9) % MCV (80.0-100.0) fL MCH (25.0-34.0) pg MCHC (32.0-36.0) g/dL RDW Std Deviation (36.4-46.3) fL RDW Coeff of Alfonso (11.5-14.5) % Plt Count (130-400) K/uL MPV (9.4-12.3) fL Immature Gran % (Auto) % Neut % (Auto) % Lymph % (Auto) % Delta % (Auto) % Eos % (Auto) % Baso % (Auto) % Neut # (Auto) (1.4-6.5) K/uL Lymph # (Auto) (1.2-3.4) K/uL Delta # (Auto) (0.24-0.82) K/uL Eos # (Auto) (0-0.50) K/uL Baso # (Auto) (0-0.2) K/uL Immature Gran # (Auto) (0.00-0.02) K/uL RBC Morphology APTT (21.0-31.0) Seconds PTT Ratio Sodium (136-145) mmol/L Potassium (3.5-5.1) mmol/L Chloride (98-107) mmol/L Carbon Dioxide (21-32) mmol/L Anion Gap (3-11) BUN (6-23) mg/dl Creatinine (0.6-1.2) mg/dl Est Cr Clr Drug Dosing ml/min Est GFR ( Amer) ml/min Est GFR (Non-Af Amer) ml/min BUN/Creatinine Ratio (10-20) Glucose (70-99(Fasting)) mg/dl POC Glucose 144 H 261 H 160 H (70-99) mg/dl Estimat Average Glucose mg/dl Hemoglobin A1c (4.5-5.6) % Lactate (0.4-2.0) mmol/L Calcium (8.5-10.1) mg/dl Magnesium (1.7-2.4) mg/dl Troponin I High Sens (0-14) pg/ml C-Reactive Protein (0-0.5) mg/dl 03/31/22 03/31/22 03/31/22 Range/Units 09:57 07:49 04:12 WBC (4.8-10.8) K/ul RBC (3.93-5.22) M/uL Hgb (12.0-16.0) g/dl Hct (34.1-44.9) % MCV (80.0-100.0) fL MCH (25.0-34.0) pg MCHC (32.0-36.0) g/dL RDW Std Deviation (36.4-46.3) fL RDW Coeff of Alfonso (11.5-14.5) % Plt Count (130-400) K/uL MPV (9.4-12.3) fL Immature Gran % (Auto) % Neut % (Auto) % Lymph % (Auto) % Delta % (Auto) % Eos % (Auto) % Baso % (Auto) % Neut # (Auto) (1.4-6.5) K/uL Lymph # (Auto) (1.2-3.4) K/uL Delta # (Auto) (0.24-0.82) K/uL Eos # (Auto) (0-0.50) K/uL Baso # (Auto) (0-0.2) K/uL Immature Gran # (Auto) (0.00-0.02) K/uL RBC Morphology APTT 65.0 H* (21.0-31.0) Seconds PTT Ratio 2.4 Sodium (136-145) mmol/L Potassium (3.5-5.1) mmol/L Chloride (98-107) mmol/L Carbon Dioxide (21-32) mmol/L Anion Gap (3-11) BUN (6-23) mg/dl Creatinine (0.6-1.2) mg/dl Est Cr Clr Drug Dosing ml/min Est GFR ( Amer) ml/min Est GFR (Non-Af Amer) ml/min BUN/Creatinine Ratio (10-20) Glucose (70-99(Fasting)) mg/dl POC Glucose 138 H 161 H (70-99) mg/dl Estimat Average Glucose mg/dl Hemoglobin A1c (4.5-5.6) % Lactate (0.4-2.0) mmol/L Calcium (8.5-10.1) mg/dl Magnesium (1.7-2.4) mg/dl Troponin I High Sens (0-14) pg/ml C-Reactive Protein (0-0.5) mg/dl 03/31/22 03/31/22 03/31/22 Range/Units 02:29 02:29 02:29 WBC 15.98 H (4.8-10.8) K/ul RBC 3.59 L (3.93-5.22) M/uL Hgb 10.4 L (12.0-16.0) g/dl Hct 31.7 L (34.1-44.9) % MCV 88.3 (80.0-100.0) fL MCH 29.0 (25.0-34.0) pg MCHC 32.8 (32.0-36.0) g/dL RDW Std Deviation 44.5 (36.4-46.3) fL RDW Coeff of Alfonso 13.7 (11.5-14.5) % Plt Count 148 (130-400) K/uL MPV 11.7 (9.4-12.3) fL Immature Gran % (Auto) 0.6 % Neut % (Auto) 87.6 % Lymph % (Auto) 6.4 % Delta % (Auto) 5.3 % Eos % (Auto) 0.0 % Baso % (Auto) 0.1 % Neut # (Auto) 13.99 H (1.4-6.5) K/uL Lymph # (Auto) 1.03 L (1.2-3.4) K/uL Delta # (Auto) 0.84 H (0.24-0.82) K/uL Eos # (Auto) 0.00 (0-0.50) K/uL Baso # (Auto) 0.02 (0-0.2) K/uL Immature Gran # (Auto) 0.10 H (0.00-0.02) K/uL RBC Morphology Unremarkable APTT 97.3 H* (21.0-31.0) Seconds PTT Ratio 3.5 Sodium 136 (136-145) mmol/L Potassium 4.2 (3.5-5.1) mmol/L Chloride 106 (98-107) mmol/L Carbon Dioxide 23 (21-32) mmol/L Anion Gap 7 (3-11) BUN 29 H (6-23) mg/dl Creatinine 1.30 H (0.6-1.2) mg/dl Est Cr Clr Drug Dosing 48.3 ml/min Est GFR ( Amer) 49.2 ml/min Est GFR (Non-Af Amer) 42.4 ml/min BUN/Creatinine Ratio 22.3 H (10-20) Glucose 147 H (70-99(Fasting)) mg/dl POC Glucose (70-99) mg/dl Estimat Average Glucose mg/dl Hemoglobin A1c (4.5-5.6) % Lactate (0.4-2.0) mmol/L Calcium 7.8 L (8.5-10.1) mg/dl Magnesium 1.9 (1.7-2.4) mg/dl Troponin I High Sens 477.8 H* D (0-14) pg/ml C-Reactive Protein 12.25 H (0-0.5) mg/dl 03/31/22 03/30/22 03/30/22 Range/Units 02:29 23:44 20:45 WBC (4.8-10.8) K/ul RBC (3.93-5.22) M/uL Hgb (12.0-16.0) g/dl Hct (34.1-44.9) % MCV (80.0-100.0) fL MCH (25.0-34.0) pg MCHC (32.0-36.0) g/dL RDW Std Deviation (36.4-46.3) fL RDW Coeff of Alfonso (11.5-14.5) % Plt Count (130-400) K/uL MPV (9.4-12.3) fL Immature Gran % (Auto) % Neut % (Auto) % Lymph % (Auto) % Delta % (Auto) % Eos % (Auto) % Baso % (Auto) % Neut # (Auto) (1.4-6.5) K/uL Lymph # (Auto) (1.2-3.4) K/uL Delta # (Auto) (0.24-0.82) K/uL Eos # (Auto) (0-0.50) K/uL Baso # (Auto) (0-0.2) K/uL Immature Gran # (Auto) (0.00-0.02) K/uL RBC Morphology APTT (21.0-31.0) Seconds PTT Ratio Sodium (136-145) mmol/L Potassium (3.5-5.1) mmol/L Chloride (98-107) mmol/L Carbon Dioxide (21-32) mmol/L Anion Gap (3-11) BUN (6-23) mg/dl Creatinine (0.6-1.2) mg/dl Est Cr Clr Drug Dosing ml/min Est GFR ( Amer) ml/min Est GFR (Non-Af Amer) ml/min BUN/Creatinine Ratio (10-20) Glucose (70-99(Fasting)) mg/dl POC Glucose 167 H (70-99) mg/dl Estimat Average Glucose 126 mg/dl Hemoglobin A1c 6.0 H (4.5-5.6) % Lactate 4.1 H* (0.4-2.0) mmol/L Calcium (8.5-10.1) mg/dl Magnesium (1.7-2.4) mg/dl Troponin I High Sens (0-14) pg/ml C-Reactive Protein (0-0.5) mg/dl 03/30/22 Range/Units 20:45 WBC (4.8-10.8) K/ul RBC (3.93-5.22) M/uL Hgb (12.0-16.0) g/dl Hct (34.1-44.9) % MCV (80.0-100.0) fL MCH (25.0-34.0) pg MCHC (32.0-36.0) g/dL RDW Std Deviation (36.4-46.3) fL RDW Coeff of Alfonso (11.5-14.5) % Plt Count (130-400) K/uL MPV (9.4-12.3) fL Immature Gran % (Auto) % Neut % (Auto) % Lymph % (Auto) % Delta % (Auto) % Eos % (Auto) % Baso % (Auto) % Neut # (Auto) (1.4-6.5) K/uL Lymph # (Auto) (1.2-3.4) K/uL Delta # (Auto) (0.24-0.82) K/uL Eos # (Auto) (0-0.50) K/uL Baso # (Auto) (0-0.2) K/uL Immature Gran # (Auto) (0.00-0.02) K/uL RBC Morphology APTT (21.0-31.0) Seconds PTT Ratio Sodium 135 L (136-145) mmol/L Potassium 3.9 (3.5-5.1) mmol/L Chloride 104 (98-107) mmol/L Carbon Dioxide 20 L (21-32) mmol/L Anion Gap 11 (3-11) BUN 28 H (6-23) mg/dl Creatinine 1.53 H (0.6-1.2) mg/dl Est Cr Clr Drug Dosing 41.0 ml/min Est GFR ( Amer) 40.4 ml/min Est GFR (Non-Af Amer) 34.8 ml/min BUN/Creatinine Ratio 18.3 (10-20) Glucose 211 H (70-99(Fasting)) mg/dl POC Glucose (70-99) mg/dl Estimat Average Glucose mg/dl Hemoglobin A1c (4.5-5.6) % Lactate (0.4-2.0) mmol/L Calcium 8.2 L (8.5-10.1) mg/dl Magnesium (1.7-2.4) mg/dl Troponin I High Sens 617.1 H* (0-14) pg/ml C-Reactive Protein (0-0.5) mg/dl PG Care Time/CCT Total # of Minutes Spent Total Time Spent with Patient: Total time spent is greater than 50% in coordination of care (as documented) at patient's floor/unit and/or counseling patient: Coding Level of Care Code 68181 Subseq Hosp Care Lvl 3 Diagnoses Acute respiratory failure with hypoxia J96.01 Pulmonary emboli I26.99 Pneumonia due to COVID-19 virus U07.1; J12.82 Sepsis A41.9 UTI (urinary tract infection) N39.0 Diabetes mellitus, type 2 E11.9 GERD (gastroesophageal reflux disease) K21.9 Hypertension I10 Hypothyroidism E03.9 Hypomagnesemia E83.42 Elevated troponin R77.8 Morbid obesity with BMI of 45.0-49.9, adult E66.01; Z68.42 DVT prophylaxis Z29.9 Ureteral stone N20.1
[2022-04-01] MEDS: INSULIN ASPART PER UNIT SC SCH ×4 (08:16→21:02)
[2022-04-01] MEDS: LANTUS PER UNIT CHARGE SQ SCH ×2 (08:16→21:03)
[2022-04-01] MEDS: CHOLECALCIFEROL 1,000 UNITS 25 MCG TAB PO SCH (08:30)
[2022-04-01] MEDS: guaiFENesin 600 MG TABCR PO SCH ×2 (08:30→20:06)
[2022-04-01] MEDS: PANTOprazole 40 MG TAB PO SCH (08:30)
[2022-04-01] MEDS: HYDROCORTISONE HC 2.5% CRM 30GM TUBE EXT SCH ×3 (08:31→20:05)
[2022-04-01] MEDS: dexAMETHasone 6 MG in SYRINGE 0 ML IV SCH (08:31)
--- NOTE | 2022-04-01 08:46 | Pharmacy Report ---
Pharmacy Glycemic Short Note 2 - Date of Service April 01, 2022 - Glycemic Short BSG Results (Last 24 hours): 03/31/22 03/31/22 03/31/22 11:32 16:58 20:09 POC Glucose 160 H 261 H 144 H 04/01/22 07:48 POC Glucose 135 H OUTPATIENT ANTIDIABETIC REGIMEN: * Metformin ER 500 mg PO BIDM * HbA1c = 6.0% (03/31/22) ASSESSMENT: 04/01: * Amy received 44 units of insulin yesterday - 30 units basal + 14 units bolus. BSGs were acceptable: [phone] mg/dL. * Fasting BSG controlled at 135 mg/dL this AM. Patient was NPO for most of the day yesterday but did eat dinner. Now ordered and tolerating a type 2 diabetic diet. Will continue with current basal dose. * Remains on IV dexamethasone for COVID. Seeing some postprandial hyperglycemia throughout the day. No change to Novolog at this time but may need to tighten correctional/prandial coverage later today if trend continues. 03/31: * 66 yo F with well-controlled T2DM on a single oral agent admitted with COVID, PE, and obstructing kidney stones * NPO this AM for potential urological intervention, but patient now passed stones and per urology, no plan for surgery today. Anticipate diet to be resumed * Steroids for COVID continue * AM fasting BSG wnl - low dose Lantus appropriate for now * Novolog currently weight-based estimate between moderate to severe stress - OK for now PLAN FOR INPATIENT GLYCEMIC CONTROL: * Hold outpatient oral diabetes medications * Basal insulin * Lantus 15 units SC BID * Bolus insulin * NovoLog per scale ACHS or Q6hrs while NPO * Goal Range: Low 110 mg/dL - High 140 mg/dL * Correction Factor: 20 mg/dL/unit * Nutritional / Prandial insulin per carb ratio of 1 unit per 6 grams CHO consumed
[2022-04-01 10:50] LABS: Alanine Aminotransferase 38 U/L (7-52); Aspartate Aminotransferase 53 U/L (13-39)
[2022-04-01 10:55] LABS: Partial Thromboplastin Ratio 2.4
[2022-04-01 10:57] LABS: Partial Thromboplastin Time 65.2 Seconds (21.0-31.0)
[2022-04-01] MEDS: RIVAROXABAN 15 MG TAB PO SCH ×2 (12:21→17:35)
[2022-04-01] MEDS: REMDESIVIR 100 MG in SODIUM CHLORIDE 0.9% 230 ML IV SCH (13:14)
--- NOTE | 2022-04-01 16:53 | Hospitalist Progress Note ---
Date of Service April 01, 2022 Assessment & Plan (1) Acute respiratory failure with hypoxia: Plan: Secondary to combination of COVID-19 pneumonia and acute PEs Was on 2LNC O2 but now weaned to room air for over 24 hrs Some mild cough, no hemoptysis D-dimer 30k and CTA chest subsequently showed multiple right sided PEs Troponin elevated, with sinus tach on ECG initially -continue O2 as needed to keep POx>90% continue treatment of COVID with decadron, Remdesevir, pulm toilet, but will dc decadron now with frequent PVCs -check ECHO -normal EF, RV dilated but normal fxn, mild MR (2) Pulmonary emboli: Plan: multiple right sided as above initially on heparin gtt but converted to Xarelto 8/10 at 15mg po bid x 21 days then 20mg daily--> cost check done and will be $20/month recommend 6 months of therapy etiology most likely COVID, obesity, sedentary, multiple long car rides to visit daughter 3-4 times per month she is UTD on all cancer screenings (3) Frequent PVCs: Plan: very frequent, couplets, short runs VT 4-5 beats has underlying RBBB ECHO preserved EF start metoprolol 12.5mg po bid dc decadron follow on tele (4) Pneumonia due to COVID-19 virus: Plan: CXR with "pulmonary vascular congestion" but I believe those findings represent pneumonia. -was on dexamethasone x 3 days but will stop due to frequent PVCs/excitability -continue Remdesivir x 5 day course Pulmonary toilet. Flutter valve/mucinex/incentive spirometry. Supportive care. Airborne isolation. Had extensive wheezing on physical exam at time of admission -- xopenex/atrovent nebs qid and now improved/resolved She carries no prior dx of asthma or obstructive lung disease. follow CXR to resolution as outpt (5) Sepsis: Plan: Severe.now resolved 2nd to COVID-19 and UTI. with lactic acidosis received IVFs BPs normal, tachycardia resolved Urine culture with pansensitive E. coli BCxs-NGTD -change ceftriaxone to po keflex to finsih out 7 day course (6) UTI (urinary tract infection): Plan: as above Patient with numerous UTIs over the last 1-2 years and her record shows h/o kidney stones. CT abd/pel ordered which showed 2 obstructing ureteral stones on right--> fortunately passed on their own in strainer on 03/31 Appreciate Urology consultation-no intervention needed due to passing stones spontaneously with some mild hematuria 04/01-observe (7) Diabetes mellitus, type 2: Plan: HbA1C 6.0% continue lantus. and novolog SSI. appreciate Pharmacy glycemic consult Hold metformin. (8) GERD (gastroesophageal reflux disease): Plan: Continue PPI. (9) Hypertension: Plan: BPs low due to severe sepsis.Now resolved continue to HOLD lisinopril. HOLD HCTZ. (10) Hypothyroidism: Plan: TSH 05/2021 wnl. Cont synthroid. (11) Hypomagnesemia: Plan: Severe at 1.0 on admission 2nd to HCTZ use. Also she reports having had several days of diarrhea about 2 weeks ago, and then poor appetite for several days following the diarrhea. 3 grams mag sulfate IV given on admission and then normal -check Mag and BMP now that having frequent PVCs (12) Elevated troponin: Plan: Likely myocardial demand ischemia in setting of severe sepsis and also could be from PEs No ischemic symptoms. ECG without ischemia check ECHO-no WMAs, EF normal (13) Morbid obesity with BMI of 45.0-49.9, adult: Plan: BMI 48 (14) Ureteral stone: Plan: as above Plan Dispo-continued stay on tele Admission and Anticipated Discharge Date Admission Date: March 30, 2022 Subjective Pt feeling a little better. SOme productive cough with white sputum, no hemoptysis. No chest pain. Had some blood in urine today. No BM today but had one yesterday and no blood. Appetite is good. Tele with NSR, SB, and very frequent PVCs, PVC couplets, and some 4-5 bt runs of VT She denies any palpitation, lightheadedness. Has been told in the past she has extra beats. Review of Systems Review of Systems: All systems reviewed & are unremarkable except as noted in HPI & below Physical Exam Constitutional: WD/WN, vitals as above Eyes: + anicteric sclerae Neck: trachea midline, no thyromegaly Respiratory: normal respiratory effort, lungs clear to auscultation Cardiovascular: RRR, no murmur, no edema (with some ectopy) Chest (Breasts): Chest: normal inspection of chest Gastrointestinal (Abdomen): normal bowel sounds, soft, nontender, no hepatosplenomegaly Musculoskeletal: Extremities: extremities normal to inspection; no cyanosis and no clubbing Skin: no rashes, warm and dry Neurologic: moves all extremities and awake; no focal motor deficits Psychiatric: A+Ox3, euthymic affect Lymphatic: no lymphedema Results & Data Results & Data ([facility]) Vital Signs (Past 12 Hours) Vital Signs Temp Pulse Pulse Resp BP Pulse Ox O2 Del Method 04/01/22 16:50 36.6 C 84 131/81 94 Room Air 04/01/22 14:32 76 04/01/22 12:22 36.5 C 72 128/85 98 Room Air 04/01/22 08:20 Room Air 04/01/22 07:52 36.5 C 73 20 125/79 95 Room Air 04/01/22 06:09 75 04/01/22 06:00 O2 Del Method 04/01/22 16:50 04/01/22 14:32 04/01/22 12:22 04/01/22 08:20 04/01/22 07:52 04/01/22 06:09 04/01/22 06:00 Nasal Cannula Laboratory Results 04/01/22 04/01/22 04/01/22 Range/Units 16:47 12:19 09:52 APTT (21.0-31.0) Seconds PTT Ratio Sodium Pending Potassium Pending Chloride Pending Carbon Dioxide Pending Anion Gap Pending BUN Pending Creatinine Pending Est Cr Clr Drug Dosing Pending Est GFR ( Amer) Pending Est GFR (Non-Af Amer) Pending BUN/Creatinine Ratio Pending Glucose Pending POC Glucose 144 H 120 H (70-99) mg/dl Calcium Pending Magnesium Pending AST (13-39) U/L ALT (7-52) U/L 04/01/22 04/01/22 04/01/22 Range/Units 09:50 09:50 07:48 APTT 65.2 H* (21.0-31.0) Seconds PTT Ratio 2.4 Sodium Potassium Chloride Carbon Dioxide Anion Gap BUN Creatinine Est Cr Clr Drug Dosing Est GFR ( Amer) Est GFR (Non-Af Amer) BUN/Creatinine Ratio Glucose POC Glucose 135 H (70-99) mg/dl Calcium Magnesium AST 53 H (13-39) U/L ALT 38 (7-52) U/L 03/31/22 03/31/22 Range/Units 20:09 16:58 APTT (21.0-31.0) Seconds PTT Ratio Sodium Potassium Chloride Carbon Dioxide Anion Gap BUN Creatinine Est Cr Clr Drug Dosing Est GFR ( Amer) Est GFR (Non-Af Amer) BUN/Creatinine Ratio Glucose POC Glucose 144 H 261 H (70-99) mg/dl Calcium Magnesium AST (13-39) U/L ALT (7-52) U/L PG Care Time/CCT Total # of Minutes Spent Total Time Spent with Patient: Total time spent is greater than 50% in coordination of care (as documented) at patient's floor/unit and/or counseling patient: Coding Level of Care Code 08121 Subseq Hosp Care Lvl 3 Diagnoses Acute respiratory failure with hypoxia J96.01 Pulmonary emboli I26.99 Frequent PVCs I49.3 Pneumonia due to COVID-19 virus U07.1; J12.82 Sepsis A41.9 UTI (urinary tract infection) N39.0 Diabetes mellitus, type 2 E11.9 GERD (gastroesophageal reflux disease) K21.9 Hypertension I10 Hypothyroidism E03.9 Hypomagnesemia E83.42 Elevated troponin R77.8 Morbid obesity with BMI of 45.0-49.9, adult E66.01; Z68.42 Ureteral stone N20.1
--- NOTE | 2022-04-01 16:58 | XCELERA ---
[id number]
[2022-04-01] MEDS: METOPROLOL TARTRATE 25 MG TAB PO SCH ×2 (17:35→20:04)
[2022-04-01 18:01] LABS: BUN Creatinine Ratio 29.1 (10-20); Calcium 8.3 mg/dl (8.5-10.1); Est GFR (African American) 60.2 ml/min; Est GFR (Non-African American) 51.9 ml/min; Magnesium 1.7 mg/dl (1.7-2.4); Potassium 4.4 mmol/L (3.5-5.1)
[2022-04-01] MEDS: MAGNESIUM SULFATE / D5W 1 GM/100 ML BAG IV SCH ×2 (18:47→21:13)
[2022-04-01] MEDS: cephALEXin 500 MG CAP PO SCH (20:06)
[2022-04-02 06:50] LABS: Basophils # (auto) 0.01 K/uL (0-0.2); Basophils % (auto) 0.1 %; Hematocrit (blood only) 35.4 % (34.1-44.9); Hemoglobin 11.6 g/dl (12.0-16.0); Immature Granulocytes # (auto) 0.13 K/uL (0.00-0.02); Lymphocytes # (auto) 1.79 K/uL (1.2-3.4); Lymphocytes % (auto) 13.8 %; Mean Corpuscular Hemoglobin 28.6 pg (25.0-34.0); Mean Corpuscular Hgb Conc 32.8 g/dL (32.0-36.0); Mean Corpuscular Volume 87.2 fL (80.0-100.0); Mean Platelet Volume 11.7 fL (9.4-12.3); Monocytes # (auto) 0.82 K/uL (0.24-0.82); Monocytes % (auto) 6.3 %; Neutrophils # (auto) 10.26 K/uL (1.4-6.5); Neutrophils % (auto) 78.8 %; Nucleated RBC # (auto) 0.02 K/uL (0-0); Nucleated RBC % (auto) 0.2 %; Platelet Count 206 K/uL (130-400); RDW Coefficient of Variation 13.8 % (11.5-14.5); RDW Standard Deviation 43.8 fL (36.4-46.3); Red Blood Count 4.06 M/uL (3.93-5.22); White Blood Count 13.01 K/ul (4.8-10.8)
[2022-04-02 07:11] LABS: BUN Creatinine Ratio 30.4 (10-20); Calcium 8.5 mg/dl (8.5-10.1); Creatinine Clr Calc Pharmacy 57.9 ml/min; Est GFR (African American) 58.9 ml/min; Est GFR (Non-African American) 50.8 ml/min; Magnesium 2.2 mg/dl (1.7-2.4); Phosphorus 2.6 mg/dl (2.5-4.9); Potassium 4.4 mmol/L (3.5-5.1)
[2022-04-02] MEDS: cephALEXin 500 MG CAP PO SCH (08:51)
[2022-04-02] MEDS: PANTOprazole 40 MG TAB PO SCH (08:51)
[2022-04-02] MEDS: guaiFENesin 600 MG TABCR PO SCH (08:52)
[2022-04-02] MEDS: CHOLECALCIFEROL 1,000 UNITS 25 MCG TAB PO SCH (08:52)
[2022-04-02] MEDS: RIVAROXABAN 15 MG TAB PO SCH (08:52)
[2022-04-02] MEDS: METOPROLOL TARTRATE 25 MG TAB PO SCH (08:52)
[2022-04-02] MEDS ORDERED: LANTUS PER UNIT CHARGE SQ SCH ×2 (09:00)
--- NOTE | 2022-04-02 09:21 | Pharmacy Report ---
Pharmacy Glycemic Short Note 2 - Date of Service April 02, 2022 - Glycemic Short BSG Results (Last 24 hours): 04/01/22 04/01/22 04/01/22 10:00 12:19 16:47 Glucose 156 H POC Glucose 120 H 144 H 04/01/22 04/02/22 04/02/22 20:23 06:35 07:34 Glucose 112 H POC Glucose 164 H 110 H OUTPATIENT ANTIDIABETIC REGIMEN: * Metformin ER 500 mg PO BIDM * HbA1c = 6.0% (03/31/22) ASSESSMENT: 04/02: * Received a total of 49 units of insulin yesterday - 30 units basal + 19 units bolus. BSGs were well controlled: [phone] mg/dL. * Fasting BSG well controlled at 110 mg/dL today. * Antibiotics were changed to PO. Today is last day of Remdesivir. IV dexamethasone has been discontinued. * Given this information, will empirically reduce basal dose by 33% today to prevent hypoglycemia. Expect insulin needs to decrease significantly once steroids are removed from system. * No change to Novolog today. 04/01: * Amy received 44 units of insulin yesterday - 30 units basal + 14 units bolus. BSGs were acceptable: [phone] mg/dL. * Fasting BSG controlled at 135 mg/dL this AM. Patient was NPO for most of the day yesterday but did eat dinner. Now ordered and tolerating a type 2 diabetic diet. Will continue with current basal dose. * Remains on IV dexamethasone for COVID. Seeing some postprandial hyperglycemia throughout the day. No change to Novolog at this time but may need to tighten correctional/prandial coverage later today if trend continues. 03/31: * 66 yo F with well-controlled T2DM on a single oral agent admitted with COVID, PE, and obstructing kidney stones * NPO this AM for potential urological intervention, but patient now passed stones and per urology, no plan for surgery today. Anticipate diet to be resumed * Steroids for COVID continue * AM fasting BSG wnl - low dose Lantus appropriate for now * Novolog currently weight-based estimate between moderate to severe stress - OK for now PLAN FOR INPATIENT GLYCEMIC CONTROL: * Hold outpatient oral diabetes medications * Basal insulin * Lantus 10 units SC BID * Bolus insulin * NovoLog per scale ACHS or Q6hrs while NPO * Goal Range: Low 110 mg/dL - High 140 mg/dL * Correction Factor: 20 mg/dL/unit * Nutritional / Prandial insulin per carb ratio of 1 unit per 6 grams CHO consumed
[2022-04-02] MEDS: INSULIN ASPART PER UNIT SC SCH ×2 (09:28→13:10)
[2022-04-02] MEDS: HYDROCORTISONE HC 2.5% CRM 30GM TUBE EXT SCH (11:28)
--- NOTE | 2022-04-02 13:24 | Discharge Summary ---
Date of Service April 02, 2022 Admission HPI Per Admitting Provider 66yo female with h/o T2DM, morbid obesity, HTN, hyperlipidemia, and hypothyroidism presents with multiple infectious symptoms starting Wednesday including subjective fevers, chills, headache, sore throat, nasal congestion, cough (only slight sputum production), fatigue, myalgias, poor appetite, and dyspnea on exertion. Dyspnea started early this am. reports she can walk only 5-10 feet and the dyspnea starts. She had bilious emesis x 1 in the ER. is sick with similar symptoms although to a lesser degree. COVID testing in the ER is +. She has been vaccinated & boosted. She & her [place] a casino last Wednesday but masked the entire visit. She masks in most public places. Upon arrival in the ER she was borderline hypoxic with lowest sats near 90%. Febrile. Principal Diagnosis COVID-19 Pneumonia, Acute respiratory failure with hypoxia, Acute PEs, UTI, sepsis, kidney stones Discharge Exam Constitutional WD/WN, vitals as above Eyes + anicteric sclerae Neck trachea midline, no thyromegaly Respiratory normal respiratory effort, lungs clear to auscultation Cardiovascular RRR, no murmur, no edema Chest (Breasts) Chest: normal inspection of chest Gastrointestinal (Abdomen) normal bowel sounds, soft, nontender, no hepatosplenomegaly Musculoskeletal Extremities: extremities normal to inspection; no cyanosis and no clubbing Skin no rashes, warm and dry Neurologic moves all extremities and awake; no focal motor deficits Psychiatric A+Ox3, euthymic affect Lymphatic no lymphedema Discharge Data Allergies Allergy/AdvReac Type Severity Reaction Status Date / Time atorvastatin AdvReac Mild "brain Verified 12/31/21 10:32 fog", "feels weird" ibuprofen AdvReac Mild Gastrointestinal Verified 12/31/21 10:32 Upset rosuvastatin AdvReac Mild Cramping Verified 12/31/21 10:32 of the Muscles Consultations 03/30/22 08:59 ED Decision to Admit Stat 03/31/22 07:45 Consult Urology Routine Ordered Studies 03/30/22 16:49 CT angio chest PE protocol Stat CT stones [CT abd pelvis wo con] Routine ECHO Hospital Course (1) Acute respiratory failure with hypoxia: Secondary to combination of COVID-19 pneumonia and acute PEs Was on 2LNC O2 but now weaned to room air for over 48 hrs Some mild cough, no hemoptysis D-dimer 30k and CTA chest subsequently showed multiple right sided PEs Troponin elevated, with sinus tach on ECG initially initially treated COVID with decadron, Remdesevir, pulm toilet, but then dcd decadron due to frequent PVCs -checked ECHO -normal EF, RV dilated but normal fxn, mild MR (2) Pulmonary emboli: multiple right sided as above initially on heparin gtt but converted to Xarelto 04/01 at 15mg po bid x 21 days then 20mg daily--> cost check done and will be $20/month recommend 6 months of therapy etiology most likely COVID, obesity, sedentary, multiple long car rides to visit daughter 3-4 times per month she is UTD on all cancer screenings (3) Frequent PVCs: very frequent, couplets, short runs VT 4-5 beats, now much improved with starting metoprolol asymptomatic has underlying RBBB ECHO preserved EF dcd decadron (4) Pneumonia due to COVID-19 virus: CXR with "pulmonary vascular congestion" but I believe those findings represent pneumonia. -was on dexamethasone x 3 days but will stop due to frequent PVCs/excitability -continue Remdesivir x 5 day course Pulmonary toilet. Flutter valve/mucinex/incentive spirometry. Supportive care. Airborne isolation. Had extensive wheezing on physical exam at time of admission -- xopenex/atrovent nebs qid and now improved/resolved She carries no prior dx of asthma or obstructive lung disease. follow CXR to resolution as outpt (5) Sepsis: Severe.now resolved 2nd to COVID-19 and UTI. with lactic acidosis received IVFs BPs normal, tachycardia resolved Urine culture with pansensitive E. coli BCxs-NGTD -change ceftriaxone to po keflex to finsih out 7 day course (6) UTI (urinary tract infection): as above Patient with numerous UTIs over the last 1-2 years and her record shows h/o kidney stones. CT abd/pel ordered which showed 2 obstructing ureteral stones on right--> fortunately passed on their own in strainer on 03/31 Appreciate Urology consultation-no intervention needed due to passing stones spontaneously with some mild hematuria 04/01-none further (7) Diabetes mellitus, type 2: HbA1C 6.0% received insulin here restart metformin on discharge (8) GERD (gastroesophageal reflux disease): Continue PPI. (9) Hypertension: BPs low due to severe sepsis.Now resolved restart home lisinopril but HCTZ. (10) Hypothyroidism: TSH 05/2021 wnl. Cont synthroid. (11) Hypomagnesemia: Severe at 1.0 on admission 2nd to HCTZ use. Also she reports having had several days of diarrhea about 2 weeks ago, and then poor appetite for several days following the diarrhea. mag replaced on multiple occasions dc HCTZ (12) Elevated troponin: Likely myocardial demand ischemia in setting of severe sepsis and also could be from PEs No ischemic symptoms. ECG without ischemia checked ECHO-no WMAs, EF normal (13) Morbid obesity with BMI of 45.0-49.9, adult: BMI 48 (14) Ureteral stone: as above Plan Dispo-dc to home Total Time Total Time Spent Total Time Spent (In Minutes): 35 min Discharge Plan Discharge Items Patient Disposition: Home - Self-Care Reason For Visit: COVID 19 PNEUMONIA, UTI Discharge Diagnosis: COVID-19 Pneumonia, Pulmonary emboli, UTI, sepsis, Kidney stones Activity: As commented below Lifting: Gradually increase as tolerated Non-emergency contact: Primary Care Provider Call non-emergency contact if: you have any medication questions, your symptoms worsen and you have a fever Follow-up/Referrals: Rona Frausto CRNP [Primary Care Provider] - (Follow up within 1-2 weeks) Diet: Heart Healthy Addtl Attending Provider Instructions: You were admitted with COVID-19 and found to have blood clots in your lungs. You were started on a blood thinner called Xarelto which is to be taken 15mg twice a day for 3 weeks and then 20mg once daily after that. You'll need to stay on this for 6 months. If you have any problems with heavy bleeding or have chest pains, shortness of breath, please return to the hospital right away. Your HCTZ was STOPPED as it caused your magnesium levels to be very low. Please finish out 3 more days of the antibiotic for your UTI. You were also started on metoprolol for your frequent extra heart beats. Pending Studies at Discharge: Yes Studies:: Blood cultures-no growth to date Stand-Alone Forms: My [facility] [employer], Smoking Cessation Medications and DC Order Prescriptions: New Xarelto DVT-PE Treat 30d Start 15 mg (42)- 20 mg (9) tablets,dose pack See Rx Instructions .ROUTE .COMPLEX Qty: 51 0RF Rx Instructions: take one-15 mg tablet twice daily for 21 days, then one-20 mg tablet once daily; must take with meal/food benzonatate 100 mg Capsule 100 mg PO Q8H PRN (Reason: cough) Qty: 30 0RF cephalexin 500 mg Capsule 500 mg PO BID Qty: 6 0RF guaifenesin [Mucinex] 600 mg Tablet Extended Release 12hr 1,200 mg PO Q12 Qty: 60 0RF Rx Instructions: OTC metoprolol succinate [Toprol XL] 25 mg tablet extended release 24 hr 25 mg PO HS Qty: 30 0RF Continued buspirone 7.5 mg tablet 7.5 mg PO BID PRN (Reason: anxiety) Qty: 20 2RF metformin 500 mg tablet extended release 24 hr 500 mg PO BID Qty: 180 3RF omeprazole 20 mg capsule,delayed release(DR/EC) 20 mg PO DAILY Qty: 30 11RF Label Comments: QAM lisinopril 10 mg tablet 10 mg PO DAILY Qty: 30 11RF Label Comments: QAM cholecalciferol (vitamin D3) [Vitamin D3] 25 mcg (1,000 unit) tablet 4,000 unit PO QAM acetaminophen 500 mg Tablet 1,000 mg PO Q8 PRN (Reason: pain) Qty: 90 0RF polyethylene glycol 3350 [Miralax] 17 gram/dose powder 17 g PO 2XWK PRN (Reason: Constipation) Discontinued hydrochlorothiazide 12.5 mg capsule 12.5 mg PO DAILY Qty: 90 3RF Label Comments: QAM Discharge Orders: Discharge Order (Routine); Ordered 04/02/22 Ordered By: Vida Valenzuela/Other Patient Handouts: A1C, High Blood Sugar (Hyperglycemia), Managing Type 2 Diabetes Admission Data Admit Date/Time: 03/30/22 08:44 Attending Provider: Vida Muhammad Admit Provider: Per Peterson Primary Care Provider: Rona Frausto Other Providers: Per Peterson ; Ramiro Krishnan Coding Level of Care Code D/C DAY MANAGEMENT >30 MINS Diagnoses Acute respiratory failure with hypoxia J96.01 Pulmonary emboli I26.99 Frequent PVCs I49.3 Pneumonia due to COVID-19 virus U07.1; J12.82 Sepsis A41.9 UTI (urinary tract infection) N39.0 Diabetes mellitus, type 2 E11.9 GERD (gastroesophageal reflux disease) K21.9 Hypertension I10 Hypothyroidism E03.9 Hypomagnesemia E83.42 Elevated troponin R77.8 Morbid obesity with BMI of 45.0-49.9, adult E66.01; Z68.42 Ureteral stone N20.1
== END 2022-04-02 14:40 | disposition home or self-care (01) | DRG 871 ==
LOC: ED 05:37 → EDINP 08:44 → SUATTDRO 08:44 → 2S 15:44